=== PATIENT | female | born 1940 | race Caucasian/White ===

== ENCOUNTER 2019-06-06 16:15 | Emergency (ER) | payer MEDICARE, MEDICAID, SELFPAY ==
[2019-06-06] VITALS (7 sets, daily range): BP systolic 143–214; BP diastolic 54–65; PULSE 58–82; RESP 16–21; TEMP 36.7–36.8; O2SAT 96–100
--- NOTE | ~2019-06-06 | XR_ITS ---
XR chest 2V 06/06/2019 18:04 Indication: Shortness of breath and fatigue Procedure: PA and lateral views of the chest Comparison: Comparison to multiple prior studies sequentially, with oldest reviewed study dated 11/16. Findings: Cardiomegaly. No focal air space disease, pulmonary edema, pleural effusion or suspected pn eumothorax. There is a chronic wedge compression fracture of the midthoracic vertebra. No acute osseo us abnormality. There is atherosclerosis. Impression: 1: No acute cardiopulmonary disease. Reviewed, dictated and finalized at location A. R WORKER WELL SERVICE Impression: 1: No acute cardiopulmonary disease.
--- NOTE | 2019-06-06 16:22 | ECG_ITS ---
Measurements Intervals [place] Rate: 55 P: 50 MI: 159 QRS: -67 QRSD: 154 T: -46 QT: 478 QTc: 458 Interpretive Statements SINUS BRADYCARDIA LEFT AXIS DEVIATION RIGHT BUNDLE BRANCH BLOCK VOLTAGE CRITERIA FOR LVH T WAVE ABNORMALITY IN ANTEROLAT/INF LEADS- CONSIDER ISCHEMIA BASELINE ARTIFACT- I, II ABNORMAL ECG Electronically Signed On 06-06-2019 17:37:06 TESTER ARMATURE OR FIELDS by Mateo Hunt D.O.
[2019-06-06 16:37] LABS: Basophils Percent Auto 0.6 % (0.2-1.2); Eosinophils Absolute Auto 0.1 K/mm3 (0-0.3); Eosinophils Percent Auto 1.4 % (0-4.4); Hematocrit 38.3 % (37.0-47.0); Hemoglobin 13.2 g/dL (12.0-15.0); Immature Granulocyte Absolute 0.02 K/mm3 (0.00-0.031); Immature Granulocyte Percent A 0.3 % (0-0.5); Lymphocytes Absolute Auto 2.62 K/mm3 (0.9-3.2); Lymphocytes Percent Auto 41.6 % (18.3-44.2); Mean Corpuscular HGB Conc 34.5 g/dl (32-36); Mean Corpuscular Hemoglobin 29.4 pg (26-34); Mean Corpuscular Volume 85.3 fl (80-100); Monocytes Absolute Auto 0.7 K/mm3 (0.1-0.6); Monocytes Percent Auto 10.8 % (2.6-8.5); Neutrophils Absolute Auto 2.9 K/mm3 (1.3-6.7); Neutrophils Percent Auto 45.3 % (45.5-73.1); Platelet Count Result 238 k/mm3 (150-375); Red Blood Count 4.49 M/mm3 (4.2-5.4); Red Cell Distribution Width 13.6 % (11.5-14.5); White Blood Count 6.3 K/mm3 (4.5-10.0)
[2019-06-06 16:51] LABS: Blood Urea Nitrogen 14 mg/dL (7-17); Calcium 9.7 mg/dL (8.4-10.2); Carbon Dioxide 23 mmol/L (22-30); Chloride 93 mmol/L (98-107); Estimated CRCL calculation 36 ml/min; Estimated Glomerular Filt Rate > 60; Glucose 103 mg/dL (65-105); Potassium 3.5 mmol/L (3.4-5.0); Sodium 132 mmol/L (137-145)
--- NOTE | 2019-06-06 20:22 | ED.WEAKNESS ---
HPI - Weakness General Chief complaint: Weakness Stated complaint: SOB, FATIGUED Time Seen by Provider: 06/06/19 20:23 Source: patient and RN notes reviewed Mode of arrival: ambulatory Limitations: no limitations History of Present Illness HPI Narrative: Pt is a 79 y/o female with a Hx of COPD, who presents to the ED with c/o generalized weakness and fatigue starting several days ago. She notes that she has a Hx of anemia, and states that she typically takes iron pills. Pt notes that she hasn't taken any iron supplements for the past week. She notes that she has also had more constant SOB over the past several days. Pt states that she has been eating and drinking normally. She also reports chills and a chronic cough, but denies any CP, fever, sinus congestion, LE pain, or LE edema. MD Complaint: generalized weakness and lack of energy Onset (ago): day(s) (several) Duration: constant Location: generalized Associated symptoms: fever/chills (chills), shortness of breath and other (cough (chronic)) Related Data Home Medications Medication Instructions Recorded Confirmed aspirin 81 mg tablet,delayed 81 mg PO DAILY 03/22/19 release atorvastatin 40 mg tablet 40 mg PO DAILY 03/22/19 cholecalciferol (vitamin D3) 25 1,000 unit PO DAILY 03/22/19 mcg (1,000 unit) capsule ferrous sulfate 325 mg (65 mg 325 mg PO DAILY tablet 03/22/19 03/22/19 iron) tablet fluoxetine 20 mg capsule 20 mg PO BID 03/22/19 losartan 100 1 tablet PO DAILY 03/22/19 mg-hydrochlorothiazide 25 mg tablet metoprolol tartrate 25 mg tablet 25 mg PO BID tablet 03/22/19 pantoprazole 40 mg tablet,delayed 40 mg PO BID tablet 03/22/19 release Allergies Allergy/AdvReac Type Severity Reaction Status Date / Time budesonide [From Symbicort] Allergy Intermediate mouth Verified 03/22/19 14:03 ulcers formoterol [From Symbicort] Allergy Intermediate mouth Verified 03/22/19 14:03 ulcers Sulfa (Sulfonamide Allergy Intermediate Hives Verified 03/22/19 14:03 Antibiotics) Review of Systems Review of Systems: All systems reviewed & are unremarkable except as noted in HPI and below Constitutional: Constitutional: Reports chills, Reports fatigue, Denies fever(s) and Reports weakness (generalized weakness) ENT: Denies nasal congestion Cardiovascular: Cardiovascular: Denies chest pain and Denies leg edema Respiratory: Respiratory: Reports cough (chronic) and Reports dyspnea Musculoskeletal: Musculoskeletal: Denies other (LE pain) [facility] Past Medical History Medical History (Updated 06/07/19 @ 00:00 by Background Daemon) Anemia Anxiety Arthritis Asthma Back pain Bronchitis CAD (coronary artery disease) Cataracts, bilateral COPD (chronic obstructive pulmonary disease) Depression Eczema GERD (gastroesophageal reflux disease) Heart attack Hemorrhoids History of angina Pneumonia UTI (urinary tract infection) Surgical History Surgical History H/O hemorrhoidectomy Hx of cardiac catheterization with stent placement Hx of cataract surgery Hx of left knee surgery Hx of tubal ligation Tubal ligation status Family History Family History Sibling Family history of diabetes mellitus in first degree relative Family history of coronary artery disease Father Family history of lung cancer Mother Family history of coronary artery disease Social History Social History Smoking status: Never smoker Alcohol intake: never Exam Const: General: healthy appearing and no acute distress Nutritional Appearance: well nourished Resp: Effort & Inspection: normal respiratory effort Auscultation: clear to auscultation bilaterally Cardio: Rate: regular rate Rhythm: regular rhythm Heart sounds: no murmurs GI: GI Palp: Yes Soft to palpation and No Tenderness to palpa
[2019-06-06] MEDS: SODIUM CHLORIDE 0.9% IV 1,000 ML 999 ML IV CONT (20:47)
[2019-06-06] MEDS: IPRATROPIUM BR 0.02% INH SOLN 0.5 MG/2.5 ML VIAL INHALATION (20:55)
[2019-06-06] MEDS: ALBUTEROL SULFATE NEB 2.5 MG/0.5 ML INH 5 MG INHALATION (20:55)
[2019-06-06 21:57] LABS: Add Urine Microscopic? YES; Appearance Urine Clear (Clear); Bilirubin Urine Negative (Negative); Blood Urine Negative (Negative); Color Urine Straw (Yellow); Glucose Urine UA Negative (Negative); Ketones Urine Negative (Negative); Leukocyte Esterase Ur Trace LEU/UL (Negative); Nitrate Urine Negative (Negative); Protein Urine Negative (Negative); RBC Urine 0-2 /hpf (0-2); Specific Grav Ur 1.009 (1.001-1.035); Squamous Epithelial Cell Urine Rare /hpf (Few); Urobilinogen Urine Negative mg/dL (<2.0); WBC Urine 0-3 /hpf
--- NOTE | 2019-06-06 22:04 | PC.NURSE ---
Pt. states when she got up to go to the bathroom a few minutes ago she felt a sharp pinching pain in her chest. She states she feels better when shes lying down .
== END 2019-06-06 23:20 | disposition home or self-care (01) ==
PROVIDERS: General Practice; Emergency Provider Emergency Medicine; PCP Family Medicine
DX: E86.0 Dehydration (principal); D64.9 Anemia, unspecified; M19.90 Unspecified osteoarthritis, unspecified site; I25.10 Atherosclerotic heart disease of native coronary artery without angina pectoris; K21.9 Gastro-esophageal reflux disease without esophagitis; I25.2 Old myocardial infarction; Z87.440 Personal history of urinary (tract) infections; Z95.5 Presence of coronary angioplasty implant and graft; Z98.42 Cataract extraction status, left eye; Z98.41 Cataract extraction status, right eye; Z79.82 Long term (current) use of aspirin; F41.9 Anxiety disorder, unspecified; F32.9 Major depressive disorder, single episode, unspecified; R00.1 Bradycardia, unspecified; I45.10 Unspecified right bundle-branch block; R94.31 Abnormal electrocardiogram [ECG] [EKG]
CPT/HCPCS: 36415; 71046; 80048; 81001; 85025; 93005; 94640; 96360; 99283; J7030

== ENCOUNTER 2019-06-07 10:42 | Outpatient (RCR) | payer MEDICARE, OTHER, SELFPAY ==
[2019-06-08 06:55] LABS: Alanine Aminotransferase 21 U/L (4-35); Albumin Level 3.7 g/dL (3.5-5.1); Alkaline Phosphatase 67 U/L (38-126); Aspartate Amino Transferase 26 U/L (14-36); Bilirubin,Total 0.4 mg/dL (0.2-1.3); Blood Urea Nitrogen 8 mg/dL (7-17); Calcium 9.5 mg/dL (8.4-10.2); Carbon Dioxide 25 mmol/L (22-30); Chloride 93 mmol/L (98-107); Estimated Glomerular Filt Rate > 60; Glucose 87 mg/dL (65-105); Potassium 3.5 mmol/L (3.4-5.0); Sodium 132 mmol/L (137-145)
== END 2019-06-29 23:59 | disposition home or self-care (01) ==
LOC: CAMBRIDGE 10:42
PROVIDERS: PCP Family Medicine; Visit Provider Physician Assistant
DX: E87.1 Hypo-osmolality and hyponatremia (principal)
CPT/HCPCS: 36415; 80053

== ENCOUNTER 2019-06-13 13:36 | Inpatient (IN) | payer MEDICARE, SELFPAY ==
[2019-06-13] VITALS (17 sets, daily range): BP systolic 123–162; BP diastolic 52–78; PULSE 68–94; RESP 14–28; TEMP 37–37.8; O2SAT 92–99
--- NOTE | ~2019-06-13 | XR_ITS ---
EXAMINATION: XR chest 2V DATE: 06/13/2019 14:03 INDICATION: Cough and shortness of breath TECHNIQUE: AP and lateral views of the chest are obtained. COMPARISON: 06/06/2019 FINDINGS: There are bibasilar airspace opacities. There is no pleural effusion or pneumothorax. The c ardiomediastinal silhouette is stable. The bones are osteopenic. There are chronic mid thoracic compr ession fractures. IMPRESSION: 1. Bibasilar airspace opacities, likely atelectasis. Reviewed, dictated and finalized at location A. E SYSTEMS OPERATIONS MANAGER
--- NOTE | ~2019-06-13 | XR_ITS ---
EXAMINATION: XR abdomen/kub 1V DATE: 06/15/2019 23:21 INDICATION: Generalized abdominal pain. TECHNIQUE: A supine view of the abdomen was obtained. COMPARISON: None. FINDINGS: Gas in the stomach and scattered throughout normal caliber colon. Small amount of stool at rectum. No dilated loops of gas-filled small bowel to suggest obstruction. Small bilateral pleural effusions wi th basilar atelectasis. Mild lumbar levocurvature with moderate spondylosis. IMPRESSION: 1. No dilated small bowel to suggest obstruction. 2. Small bilateral pleural effusions with basilar atelectasis. Reviewed, dictated and finalized at location A. SACTION MANAGER
--- NOTE | 2019-06-13 13:39 | ECG_ITS ---
Measurements Intervals [place] Rate: 77 P: 28 MT: 157 QRS: -76 QRSD: 161 T: -7 QT: 460 QTc: 524 Interpretive Statements SINUS RHYTHM RIGHT BUNDLE BRANCH BLOCK LEFT ANTERIOR FASCICULAR BLOCK VOLTAGE CRITERIA FOR LVH CANNOT RULE OUT SEPTAL INFARCT, AGE INDETERMINATE BASELINE ARTIFACT- I, II, III, AVL, AVF ABNORMAL ECG Electronically Signed On 06-13-2019 14:03:54 CLOTH SHRINKING MACHINE OPERATOR HELPER by Mateo Hunt D.O.
--- NOTE | 2019-06-13 14:20 | ED.SOB ---
HPI - SOB/Dyspnea General Chief Complaint: Shortness of Breath/Dyspnea Stated Complaint: cough, SOB Time Seen by Provider: 06/13/19 13:55 Source: patient and RN notes reviewed Mode of arrival: ambulatory Limitations: no limitations History of Present Illness HPI Narrative: Pt is an 79 y/o female presenting to the ED c/o cough. Pt reports she has been experiencing a cough for about 2 weeks that worsened 3 days ago. Pt also reports pain with cough, subjective fever, SOB, rhinorrhea, ST, chest congestion, and nausea, but denies vomiting. Pt states she presented to this facility last Thursday where she reports she was not given any medications and was told she was dehydrated. Pt states she has not recently been on an Abx. Pt reports she sees Dr. Gresham as her Appraisal Specialist due to a Hx of SD and stent placement. Pt states she also has a Hx of COPD and received a Nebulizer treatment last Thursday. Pt notes she resides at [facility]. Pertinent past history: COPD Onset (ago): week(s) (2) Associated symptoms: fever (Subjective), nausea/vomiting (Nausea, no vomiting) and other (SOB; pain with cough; rhinorrhea; ST; chest congestion) Related Data Home Medications Medication Instructions Recorded Confirmed aspirin 81 mg tablet,delayed 81 mg PO DAILY 03/22/19 06/13/19 release atorvastatin 40 mg tablet 40 mg PO DAILY 03/22/19 06/13/19 cholecalciferol (vitamin D3) 25 1,000 unit PO DAILY 03/22/19 06/13/19 mcg (1,000 unit) capsule ferrous sulfate 325 mg (65 mg 325 mg PO DAILY tablet 03/22/19 06/13/19 iron) tablet fluoxetine 20 mg capsule 20 mg PO BID 03/22/19 06/13/19 metoprolol tartrate 25 mg tablet 25 mg PO BID tablet 03/22/19 06/13/19 pantoprazole 40 mg tablet,delayed 40 mg PO BID tablet 03/22/19 06/13/19 release meclizine 25 mg PO TID 06/13/19 06/13/19 multivitamin [Daily-Linnea] 1 tablet PO DAILY 06/13/19 06/13/19 nitroglycerin 0.4 mg SUBLINGUAL ONCE 06/13/19 06/13/19 ondansetron 4 mg PO Q6H 06/13/19 06/13/19 promethazine 25 mg PO Q6H PRN 06/13/19 06/13/19 triamcinolone acetonide 1 applic TOPICAL BID 06/13/19 06/13/19 Allergies Allergy/AdvReac Type Severity Reaction Status Date / Time budesonide [From Symbicort] Allergy Intermediate mouth Verified 03/22/19 14:03 ulcers formoterol [From Symbicort] Allergy Intermediate mouth Verified 03/22/19 14:03 ulcers Sulfa (Sulfonamide Allergy Intermediate Hives Verified 03/22/19 14:03 Antibiotics) Review of Systems Review of Systems: Narrative: pain with cough, subjective fever, SOB, rhinorrhea, ST, chest congestion, and nausea, but denies vomiting All systems reviewed & are unremarkable except as noted in HPI and below Constitutional: Constitutional: Reports fever(s) (Subjective) ENT: Reports sore throat and Reports other (Rhinorrhea) Respiratory: Respiratory: Reports chest congestion, Reports cough, Reports pain with cough and Reports dyspnea Gastrointestinal: Gastrointestinal: Reports nausea and Denies vomiting PMFSH Past Medical History Medical History Anemia Anxiety Arthritis Asthma Back pain Bronchitis CAD (coronary artery disease) Cataracts, bilateral COPD (chronic obstructive pulmonary disease) Depression Eczema GERD (gastroesophageal reflux disease) Heart attack Hemorrhoids History of angina Pneumonia UTI (urinary tract infection) Surgical History Surgical History H/O hemorrhoidectomy Hx of cardiac catheterization with stent placement Hx of cataract surgery Hx of left knee surgery Hx of tubal ligation Tubal ligation status Family History Family History Sibling Family history of diabetes mellitus in first degree relative Family history of coronary artery disease Father Family history of lung cancer Mother Family history of coronary artery disease Social History Social History (Reviewed 05/22
[2019-06-13 14:25] LABS: Basophils Percent Auto 0.4 % (0.2-1.2); Eosinophils Absolute Auto 0.1 K/mm3 (0-0.3); Eosinophils Percent Auto 0.9 % (0-4.4); Hematocrit 35.8 % (37.0-47.0); Hemoglobin 12.3 g/dL (12.0-15.0); Immature Granulocyte Absolute 0.02 K/mm3 (0.00-0.031); Immature Granulocyte Percent A 0.3 % (0-0.5); Lymphocytes Percent Auto 17.3 % (18.3-44.2); Mean Corpuscular HGB Conc 34.4 g/dl (32-36); Mean Corpuscular Hemoglobin 29.1 pg (26-34); Mean Corpuscular Volume 84.6 fl (80-100); Mean Platelet Volume 9.8 fl (7.4-10.4); Monocytes Absolute Auto 0.7 K/mm3 (0.1-0.6); Monocytes Percent Auto 9.2 % (2.6-8.5); Neutrophils Absolute Auto 5.4 K/mm3 (1.3-6.7); Neutrophils Percent Auto 71.9 % (45.5-73.1); Platelet Count Result 209 k/mm3 (150-375); Red Blood Count 4.23 M/mm3 (4.2-5.4); Red Cell Distribution Width 13.2 % (11.5-14.5); White Blood Count 7.5 K/mm3 (4.5-10.0)
[2019-06-13 14:26] LABS: Alveolar/Arterial O2 Gradient 48.6 mmHg; Base Excess ABG 1.4 mEq/l (+/-2.0); Carboxyhemoglobin 0.2 % THb (0-2.0); Fractional Inspired Oxygen 21 %; HCO3 ABG 24.8 mEq/l (22.0-26.0); Methemoglobin ABG 0.2 %THb (0-1.5); Oxygen Content ABG 16.4 %vol (16.0-22.0); Oxygen Saturation ABG 92.2 % (95.0-100.0); Oxyhemoglobin 91.1 % THb (90.0-100.0); PCO2 ABG 35.2 mmHg (35.0-45.0); PO2 FiO2 Ratio Arterial Blood 2.81 %; Reduced Hemoglobin 8.5 %THb (0-5.0); Total Hemoglobin 12.8 g/dL (12.0-18.0); pH ABG 7.466 (7.350-7.450)
[2019-06-13 14:27] LABS: Device ROOM AIR; Modified Allen's Test Pass; Site Drawn RIGHT RADIAL
[2019-06-13] MEDS: IPRATROPIUM BR 0.02% INH SOLN 0.5 MG/2.5 ML VIAL INHALATION ×2 (14:31→22:29)
[2019-06-13] MEDS: ALBUTEROL SULFATE NEB 2.5 MG/0.5 ML INH 5 MG INHALATION ×2 (14:31→22:29)
[2019-06-13 14:48] LABS: Alanine Aminotransferase 21 U/L (4-35); Albumin Level 4.3 g/dL (3.5-5.1); Alkaline Phosphatase 45 U/L (38-126); Aspartate Amino Transferase 9 U/L (14-36); Bilirubin,Total 0.5 mg/dL (0.2-1.3); Magnesium 0.6 mg/dL (1.6-2.3)
[2019-06-13 14:48] LABS: Blood Urea Nitrogen 9 mg/dL (7-17); Carbon Dioxide 24 mmol/L (22-30); Chloride 86 mmol/L (98-107); Estimated CRCL calculation 64 ml/min; Estimated Glomerular Filt Rate > 60; Glucose 145 mg/dL (65-105); Potassium 3.3 mmol/L (3.4-5.0); Sodium 125 mmol/L (137-145)
[2019-06-13 14:50] LABS: Lactic Acid Reflex 1.9 mmol/L (0.7-2.1)
[2019-06-13 15:00] LABS: Troponin I < 0.012 ng/mL (0.000-0.034)
[2019-06-13] MEDS: SODIUM CHLORIDE 0.9% IV 1,000 ML 999 ML IV CONT (15:01)
[2019-06-13] MEDS: MAGNESIUM SULF 1 GM/D5W 100 ML 1 GM/100 ML BAG IVPB (15:25)
[2019-06-13] MEDS: POTASSIUM CHLORIDE 20 MEQ TABLET PO (15:25)
--- NOTE | 2019-06-13 17:23 | ADMGEN ---
This patient, Sola Osborne, was admitted to 2 Medical Room 243-01. Patient/family oriented to hospital policies and general routines including ID bracelet, bed and alarms, visiting hours, pain management, procedures, bathroom and other care routines, personal items, smoking policy, room service/diet, and visiting hours. Valuables list has been completed. Information on how to activate the Rapid Response Team has been discussed. Patient/Family are encouraged to report perceived risks to care and to ask questions if they do not understand what they are told or what they should do.
[2019-06-13] MEDS: SODIUM CHLORIDE 0.9% IV 1,000 ML 125 ML IV CONT (18:29)
[2019-06-13] MEDS: DOXYCYCLINE HYCLATE 100 MG TABLET PO (20:48)
[2019-06-14] VITALS (17 sets, daily range): BP systolic 141–150; BP diastolic 45–61; PULSE 65–103; RESP 16–20; TEMP 36.1–36.7; O2SAT 92–93
[2019-06-14] MEDS: SODIUM CHLORIDE 0.9% IV 1,000 ML 125 ML IV CONT ×2 (03:02→12:23)
[2019-06-14] MEDS: IPRATROPIUM BR 0.02% INH SOLN 0.5 MG/2.5 ML VIAL INHALATION ×4 (04:19→19:10)
[2019-06-14] MEDS: ALBUTEROL SULFATE NEB 2.5 MG/0.5 ML INH 5 MG INHALATION ×4 (04:19→19:09)
--- NOTE | 2019-06-14 05:06 | PM.IMHP ---
H&P: HPI History of Present Illness Chief complaint: Cough Narrative: Date and time of patient contact: 06/14/2019 at 6:00 a.m. Sola Osborne is a 79 year old female with a past medical history of COPD, coronary artery disease, and diastolic dysfunction who presented to the ER from [facility] with a cough. She has been having shortness of breath for about a week followed by another week of cough that is nonproductive. She had came into the ER 06/06/2019 for shortness of breath was accompanied by chills generalized weakness and fatigue. She was diagnosed with dehydration and discharged home without medications. Her symptoms started for 5 days prior to her initial presentation. She does have a chronic cough but her cough is progressively worsened after her 1st ER visit.. Her cough is nonproductive. She has been having some fevers and chills. She reports decreased appetite but no nausea or vomiting. She has been having somewhat loose stools but she has continued taking her fiber supplement and stool softener until the at which time she held them. She denies any chest pain. She has longstanding history of orthopnea that may be a little bit worse than baseline. However her cough is what is making the orthopnea worse. She denies any lower extremity swelling. Her chest is uncomfortable with her cough. Review of Systems Review of Systems: Narrative: Except as documented in the HPI, all other systems were reviewed and are negative. [facility] Past Medical History Medical History (Updated 06/14/19 @ 05:14 by Kristin Baird DO) Anemia Distant history of anemia on iron supplements Anxiety Arthritis Asthma Back pain CAD (coronary artery disease) Angioplasty in the early , drug eluting stent to the proximal 1st obtuse marginal branch of the circumflex September 2014 COPD (chronic obstructive pulmonary disease) PFTs August of 2018 demonstrated moderate obstructive airway disease with severe small airway disease with no bronchodilator response and significant air trapping Depression Diastolic dysfunction Noted on cardiac catheterization from September 2014, with echocardiogram from September 2014 demonstrating moderate LVH with sigmoid hypertrophy of the septum, increased left heart filling pressures, EF of 70% with anterior lateral segment being hypokinetic Eczema GERD (gastroesophageal reflux disease) With symptoms of dysphagia resulting in an EGD by Dr. Byrd September 2018 with gastric polypectomy Heart attack Non STEMI September 2014 with stent placed in the obvious marginal branch of the circumflex Hemorrhoids Pneumonia UTI (urinary tract infection) Surgical History Surgical History (Updated 06/14/19 @ 05:14 by Kristin Baird DO) H/O hemorrhoidectomy History of bilateral cataract extraction Hx of cardiac catheterization with stent placement Hx of cataract surgery Hx of left knee surgery Hx of tubal ligation Tubal ligation status Family History Family History (Updated 06/14/19 @ 05:18 by Kristin Baird DO) Sibling Diabetes mellitus Coronary artery disease One brother of complications of diabetes and had a history of heart disease. Her younger brother also had a history of a CABG. Father Lung cancer Mother Coronary artery disease She had an IL in her 70s. Son Quadriplegia, acute traumatic 1 son who is quadriplegic due to trauma. She also has 3 other children. Social History Social History (Updated 06/14/19 @ 07:18 by Kristin Baird DO) Social History: Primary care physician: Ha CASTANEDA Code status: DNI per patient request Smoking status: Never smoker Second hand tobacco smoke exposure: Yes Alcohol intake: never Substance use: never Substance use type: does not use Additional living arrangements comments: Patient resides at [facility]. She has 4 children. One of her children's quadriplegic due to a car accident.
[2019-06-14 06:23] LABS: Blood Urea Nitrogen 4 mg/dL (7-17); Calcium 8.1 mg/dL (8.4-10.2); Carbon Dioxide 25 mmol/L (22-30); Chloride 90 mmol/L (98-107); Estimated CRCL calculation 64 ml/min; Estimated Glomerular Filt Rate > 60; Glucose 122 mg/dL (65-105); Potassium 3.1 mmol/L (3.4-5.0); Sodium 126 mmol/L (137-145)
[2019-06-14 06:24] LABS: Magnesium 1.7 mg/dL (1.6-2.3)
[2019-06-14] MEDS: MAGNESIUM SULF 2 GM/WATER 50ML 2 GM/50 ML BAG IVPB (07:57)
[2019-06-14] MEDS: POTASSIUM CHLORIDE 20 MEQ PACKET (FOR LIQUID) 40 MEQ PO (07:59)
[2019-06-14] MEDS: predniSONE 20 MG TABLET 60 MG PO (08:02)
[2019-06-14] MEDS: DOXYCYCLINE HYCLATE 100 MG TABLET PO ×2 (08:02→20:39)
[2019-06-14] MEDS: METOPROLOL TARTRATE 25 MG TABLET PO (08:02)
[2019-06-14] MEDS: hydroCHLOROthiazide 25 MG TABLET PO (08:02)
[2019-06-14] MEDS: PANTOPRAZOLE 40 MG TABLET PO ×2 (08:03→16:31)
[2019-06-14] MEDS: MULTIVITAMINS THERAPEUTIC TAB (*BKC) 1 TABLET PO (08:03)
[2019-06-14] MEDS: CHOLECALCIFEROL 1,000 UNIT TABLET 1000 UNITS PO (08:03)
[2019-06-14] MEDS: LOSARTAN POTASSIUM 100 MG TABLET PO (08:03)
[2019-06-14] MEDS: FLUOXETINE HCL 20 MG CAP PO ×2 (08:03→16:31)
[2019-06-14] MEDS: ASPIRIN 81 MG ENTERIC TABLET PO (08:04)
[2019-06-14] MEDS: ACETAMINOPHEN 325 MG TABLET 650 MG PO ×2 (09:14→20:39)
--- NOTE | 2019-06-14 15:12 | P.PNIM_ITS ---
Progress Note: A&P Assessment and Plan (1) Acute exacerbation of chronic obstructive airways disease: Code(s): J44.1 - Chronic obstructive pulmonary disease with (acute) exacerbation Status: Acute Assessment and Plan: * Continue scheduled duoneb treatments * Will discontinue PO prednisone and begin IV solumedrol due to persistent cough * Continue PO doxycycline * Chest physiotherapy, IS * Continue guaifenesin * Begin benzonatate * Will hold fluticasone/salmeterol due to acute COPD exacerbation (2) Hypomagnesemia: Code(s): E83.42 - Hypomagnesemia Status: Acute Assessment and Plan: * Magnesium at presentation to the ED was 0.6. The pt received a 3 grams of magnesium sulfate in the ER. Magnesium level today was 1.7. She received an additional 2 grams today. * Will re-check Mg tomorrow * Suspect GI loss from diarrhea, laxative use, and HCTZ are contributing to hypomagnesemia. * Hold HCTZ (3) Acute hyponatremia: Code(s): E87.1 - Hypo-osmolality and hyponatremia Status: Acute Assessment and Plan: * Pt appears to have hyponatremia at baseline (sodium 06/08 132) but sodium today was 126 * Suspect that this may be induced by HCTZ. Will hold HCTZ * Urine sodium and urine osmolality ordered * Obtain echo * Will continue to monitor (4) Hypertension: Code(s): I10 - Essential (primary) hypertension Status: Acute Assessment and Plan: * BP reviewed. Pt is on losartan-HCTZ and carvedilol. She reports that metoprolol 25mg BID was recently switched to carvedilol 3.125mg BID by her medical collections. * Will hold HCTZ due to electrolyte abnormalities. * Continue to monitor (5) Diastolic dysfunction: Code(s): I51.89 - Other ill-defined heart diseases Status: Acute Assessment and Plan: * Pt has a hx of diastolic dysfunction * Will obtain echo * Will monitor fluid status (6) CAD (coronary artery disease): Code(s): I25.10 - Atherosclerotic heart disease of [place] coronary artery without angina pectoris Status: Acute Assessment and Plan: * Pt has a hx of CAD s/p angioplasty in the early and drug eluting stent to the proximal 1st obtuse marginal branch of the circumflex September 2014 * She c/o chest tightness with coughing at admission so ECG and troponin was ordered and negative for acute ischemia. * Continue to monitor (7) Anxiety: Code(s): F41.9 - Anxiety disorder, unspecified Status: Acute Assessment and Plan: * The pt has a hx of anxiety and depression. Will continue fluoxetine. (8) GERD (gastroesophageal reflux disease): Code(s): K21.9 - Gastro-esophageal reflux disease without esophagitis Status: Acute Assessment and Plan: * The pt has a hx of GERD. She underwent EGD by Dr. Byrd 10/07/18 and a gastric polyp was removed. * Continue protonix. Will give 40mg PO QD since this can cause hypomagnesemia and hyponatremia. (9) Hypokalemia: Code(s): E87.6 - Hypokalemia Status: Acute Assessment and Plan: * Potassium was 3.3 at admission. Potassium dropped to 3.1 today. Pt received 20mEq in the ER and 40mEq today. * Will continue to monitor Additional Plan DVT Prophylaxis: SCDs Time Spent With Patient Time with patient: 15 - 25 minutes Subjective
--- NOTE | 2019-06-14 15:12 | PM.IMPN ---
Progress Note: A&P Assessment and Plan (1) Acute exacerbation of chronic obstructive airways disease: Code(s): J44.1 - Chronic obstructive pulmonary disease with (acute) exacerbation Status: Acute Assessment and Plan: Continue scheduled duoneb treatments Will discontinue PO prednisone and begin IV solumedrol due to persistent cough Continue PO doxycycline Chest physiotherapy, IS Continue guaifenesin Begin benzonatate Will hold fluticasone/salmeterol due to acute COPD exacerbation (2) Hypomagnesemia: Code(s): E83.42 - Hypomagnesemia Status: Acute Assessment and Plan: Magnesium at presentation to the ED was 0.6. The pt received a 3 grams of magnesium sulfate in the ER. Magnesium level today was 1.7. She received an additional 2 grams today. Will re-check Mg tomorrow Suspect GI loss from diarrhea, laxative use, and HCTZ are contributing to hypomagnesemia. Hold HCTZ (3) Acute hyponatremia: Code(s): E87.1 - Hypo-osmolality and hyponatremia Status: Acute Assessment and Plan: Pt appears to have hyponatremia at baseline (sodium 06/08 132) but sodium today was 126 Suspect that this may be induced by HCTZ. Will hold HCTZ Urine sodium and urine osmolality ordered Obtain echo Will continue to monitor (4) Hypertension: Code(s): I10 - Essential (primary) hypertension Status: Acute Assessment and Plan: BP reviewed. Pt is on losartan-HCTZ and carvedilol. She reports that metoprolol 25mg BID was recently switched to carvedilol 3.125mg BID by her gunner's mate m. Will hold HCTZ due to electrolyte abnormalities. Continue to monitor (5) Diastolic dysfunction: Code(s): I51.89 - Other ill-defined heart diseases Status: Acute Assessment and Plan: Pt has a hx of diastolic dysfunction Will obtain echo Will monitor fluid status (6) CAD (coronary artery disease): Code(s): I25.10 - Atherosclerotic heart disease of [place] coronary artery without angina pectoris Status: Acute Assessment and Plan: Pt has a hx of CAD s/p angioplasty in the early and drug eluting stent to the proximal 1st obtuse marginal branch of the circumflex September 2014 She c/o chest tightness with coughing at admission so ECG and troponin was ordered and negative for acute ischemia. Continue to monitor (7) Anxiety: Code(s): F41.9 - Anxiety disorder, unspecified Status: Acute Assessment and Plan: The pt has a hx of anxiety and depression. Will continue fluoxetine. (8) GERD (gastroesophageal reflux disease): Code(s): K21.9 - Gastro-esophageal reflux disease without esophagitis Status: Acute Assessment and Plan: The pt has a hx of GERD. She underwent EGD by Dr. Byrd 10/07/18 and a gastric polyp was removed. Continue protonix. Will give 40mg PO QD since this can cause hypomagnesemia and hyponatremia. (9) Hypokalemia: Code(s): E87.6 - Hypokalemia Status: Acute Assessment and Plan: Potassium was 3.3 at admission. Potassium dropped to 3.1 today. Pt received 20mEq in the ER and 40mEq today. Will continue to monitor Additional Plan DVT Prophylaxis: SCDs Time Spent With Patient Time with patient: 15 - 25 minutes Subjective Date/time seen: 06/14/19 15:12 Interval history: The pt is seen and examined while sitting up in bed. She is tolerating PO intake well. She reports that her cough and SOB are improving. She continues to c/o intermittent coughing fits. She endorses difficulty coughing up sputum. She is feeling better today. She is on room air. She denies nausea, vomiting, and abdominal pain. Review of Systems Review of Systems: All systems reviewed & are unremarkable except as noted in HPI and below Exam Narrative: Exam Narrative: General: Elderly female, frail, sitting up in bed. No acute distr
[2019-06-14 18:59] LABS: Sodium Urine Random 73 meq/L
[2019-06-14] MEDS: BENZONATATE 100 MG CAPSULE PO (19:00)
[2019-06-14] MEDS: ATORVASTATIN 40 MG TABLET PO (20:39)
[2019-06-14] MEDS: carvediloL 3.125 MG TABLET PO (20:39)
[2019-06-14] MEDS: ZOLPIDEM TARTRATE 5 MG TABLET PO (20:39)
[2019-06-15] VITALS (17 sets, daily range): BP systolic 142–152; BP diastolic 62–77; PULSE 64–88; RESP 16–18; TEMP 36.1–36.6; O2SAT 90–98
--- NOTE | 2019-06-15 | ECHO_ITS ---
Patient Info Name: Sola Osborne Age: 79 years : 1940 Gender: Female Ht: 61 in Wt: 144 lbs BSA: 1.70 m2 HR: 78 bpm BP: 149 / 62 mmHg Heart Rhythm: Sinus Rhythm Technical Quality: Good Exam Date: 06/15/2019 10:59 AM Exam Location: [facility] Pulmonary Patient Status: Inpatient Admit Date: 06/13/2019 Staff Ordering Physician: Wilma Moore PA-C Sprinkler Truck Driver: Tricia Muro RDCS Attending Provider: Wilma Moore PA-C Referring Physician: Oscar LINK; Exam Type: CA echo doppler color flow Study Info Indications - copd diastolic dysfunction Complete two-dimensional, color flow and Doppler transthoracic echocardiogram is performed. Summary 1. Left ventricular chamber dimension is normal. 2. Left ventricular systolic function is normal, estimated at 65-70%. 3. There is mildly increased left ventricular wall thickness. 4. Left ventricular septal wall motion is normal. 5. The left ventricular diastolic function is grade I diastolic dysfunction. 6. Left atrial chamber dimension is moderately enlarged. 7. There is mild to moderate mitral valve regurgitation. 8. There is mild tricuspid valve regurgitation. 9. Mild pulmonary hypertension, estimated pulmonary arterial systolic pressure is 35 mmHg. 10. There is mild pulmonic regurgitation. Left Ventricle Left ventricular chamber dimension is normal. Left ventricular systolic function is normal, estimated at 65-70%. There is mildly increased left ventricular wall thickness. Left ventricular septal wall motion is normal. The left ventricular diastolic function is grade I diastolic dysfunction. Right Ventricle Right ventricular chamber dimension is normal. Right ventricular systolic function is normal. Left Atria Left atrial chamber dimension is moderately enlarged. Right Atria Right atrial chamber dimension is normal. Atrial Septum Intact interatrial septum visualized by color flow imaging. Aortic Valve The aortic valve is trileaflet. There is mild aortic valve sclerosis. There is no aortic valve stenosis. There is trace aortic valve regurgitation. Pulmonic Valve The pulmonic valve is normal. There is no pulmonic valve stenosis. There is mild pulmonic regurgitation. Mitral Valve The mitral valve has calcified annulus. There is no mitral valve stenosis. There is mild to moderate mitral valve regurgitation. Tricuspid Valve The tricuspid valve leaflets are normal. There is no significant tricuspid valve stenosis. There is mild tricuspid valve regurgitation. Mild pulmonary hypertension, estimated pulmonary arterial systolic pressure is 35 mmHg. Pericardium/Pleural The pericardium appears normal. There is trivial pericardial effusion. Inferior Vena Cava Dilated inferior vena cava with >50% collapse upon inspiration consistent with elevated right atrial pressure, 10 mmHg. Aorta The aortic root size at the sinus of Valsalva is normal. Left Ventricular Outflow Tract Name Value Normal LVOT 2D LVOT Diameter 2.0 cm LVOT Doppler LVOT Peak Gradient 5 mmHg LVOT Me
[2019-06-15] MEDS: ALBUTEROL SULFATE NEB 2.5 MG/0.5 ML INH 5 MG INHALATION ×4 (01:14→20:39)
[2019-06-15] MEDS: IPRATROPIUM BR 0.02% INH SOLN 0.5 MG/2.5 ML VIAL INHALATION ×4 (01:15→20:37)
[2019-06-15 05:27] LABS: Basophils Percent Auto 0.1 % (0.2-1.2); Hematocrit 31.1 % (37.0-47.0); Immature Granulocyte Absolute 0.05 K/mm3 (0.00-0.031); Immature Granulocyte Percent A 0.5 % (0-0.5); Lymphocytes Percent Auto 20.7 % (18.3-44.2); Mean Corpuscular HGB Conc 35.4 g/dl (32-36); Mean Corpuscular Hemoglobin 28.9 pg (26-34); Mean Corpuscular Volume 81.8 fl (80-100); Mean Platelet Volume 9.8 fl (7.4-10.4); Monocytes Absolute Auto 0.9 K/mm3 (0.1-0.6); Monocytes Percent Auto 9.3 % (2.6-8.5); Neutrophils Absolute Auto 6.7 K/mm3 (1.3-6.7); Neutrophils Percent Auto 69.4 % (45.5-73.1); Platelet Count Result 206 k/mm3 (150-375); Red Cell Distribution Width 13.2 % (11.5-14.5); White Blood Count 9.6 K/mm3 (4.5-10.0)
[2019-06-15] MEDS: LOSARTAN POTASSIUM 100 MG TABLET PO (09:18)
[2019-06-15] MEDS: FLUOXETINE HCL 20 MG CAP PO (09:18)
[2019-06-15] MEDS: MULTIVITAMINS THERAPEUTIC TAB (*BKC) 1 TABLET PO (09:18)
[2019-06-15] MEDS: CHOLECALCIFEROL 1,000 UNIT TABLET 1000 UNITS PO (09:18)
[2019-06-15] MEDS: PANTOPRAZOLE 40 MG TABLET PO (09:18)
[2019-06-15] MEDS: BENZONATATE 100 MG CAPSULE PO ×2 (09:18→13:34)
[2019-06-15] MEDS: DOXYCYCLINE HYCLATE 100 MG TABLET PO (09:18)
[2019-06-15] MEDS: carvediloL 3.125 MG TABLET PO (09:18)
--- NOTE | 2019-06-15 09:25 | PC.NURSE ---
Patient states she takes her baby ASA at bedtime at home and requests to take it at bedtime here. Discussed with pharmacy, held this morning's dose and rescheduled for this evening.
[2019-06-15 09:41] LABS: Blood Urea Nitrogen 6 mg/dL (7-17); Calcium 8.7 mg/dL (8.4-10.2); Carbon Dioxide 25 mmol/L (22-30); Chloride 88 mmol/L (98-107); Estimated CRCL calculation 64 ml/min; Estimated Glomerular Filt Rate > 60; Glucose 100 mg/dL (65-105); Magnesium 1.9 mg/dL (1.6-2.3); Phosphorus 1.9 mg/dL (2.5-4.5); Potassium 3.5 mmol/L (3.4-5.0); Sodium 124 mmol/L (137-145)
--- NOTE | 2019-06-15 10:21 | P.PNIM_ITS ---
Progress Note: A&P Assessment and Plan (1) Acute exacerbation of chronic obstructive airways disease: Code(s): J44.1 - Chronic obstructive pulmonary disease with (acute) exacerbation Status: Acute Assessment and Plan: Clinically, pt is improving * Continue scheduled duoneb treatments * Pt did not receive IV solumedrol. She had prednisone PO 60mg yesterday AM. Will continue PO prednisone since pt is improving * Continue PO doxycycline * Chest physiotherapy, IS * Continue guaifenesin * Continue benzonatate, cough is improving * Will hold fluticasone/salmeterol due to acute COPD exacerbation (2) Hypomagnesemia: Code(s): E83.42 - Hypomagnesemia Status: Acute Assessment and Plan: * Magnesium at presentation to the ED was 0.6. The pt received a 3 grams of magnesium sulfate in the ER and an additional 2 grams yesterday. Magnesium level today was stable at 1.9. * Suspect GI loss from diarrhea, laxative use, and HCTZ are contributing to hypomagnesemia. * Hold HCTZ (3) Acute hyponatremia: Code(s): E87.1 - Hypo-osmolality and hyponatremia Status: Acute Assessment and Plan: * Pt appears to have hyponatremia at baseline (sodium 06/08 132) but sodium today was 124. Will resume IV fluids. * Spot urine sodium was 73. Potassium is normal. * Suspect that this may be induced by HCTZ. Will continue to hold HCTZ * Urine osmolality pending * Due to steroid therapy, ACTH and cortisol would be inaccurate but this may need to be considered outpatient if hyponatremia persists * Will consult nephrology, appreciate recommendations (4) Hypertension: Code(s): I10 - Essential (primary) hypertension Status: Acute Assessment and Plan: * BP reviewed. Pt is on losartan-HCTZ and carvedilol. She reports that metoprolol 25mg BID was recently switched to carvedilol 3.125mg BID by her residential program manager. * Will hold HCTZ due to electrolyte abnormalities. * Continue to monitor (5) Diastolic dysfunction: Code(s): I51.89 - Other ill-defined heart diseases Status: Acute Assessment and Plan: * Pt has a hx of diastolic dysfunction * Echo revealed EF 65-70%, left ventricular grade 1 diastolic dysfunction, moderate left atrial enlargement, mild to moderate mitral valve regurgitation, mild tricuspid valve regurgitation, and mild pulmonary HTN with estimated arterial systolic pressure of 35mmHg. * Will monitor fluid status (6) CAD (coronary artery disease): Code(s): I25.10 - Atherosclerotic heart disease of [place] coronary artery without angina pectoris Status: Acute Assessment and Plan: * Pt has a hx of CAD s/p angioplasty in the early and drug eluting stent to the proximal 1st obtuse marginal branch of the circumflex September 2014 * She c/o chest tightness with coughing at admission so ECG and troponin was ordered and negative for acute ischemia. * Continue to monitor (7) Anxiety: Code(s): F41.9 - Anxiety disorder, unspecified Status: Acute Assessment and Plan: * The pt has a hx of anxiety and depression. Will continue fluoxetine. (8) GERD (gastroesophageal reflux disease): Code(s): K21.9 - Gastro-esophageal reflux disease without esophagitis Status: Acute Assessment and Plan: * The pt has a hx of GERD. She underwent EGD by Dr. Byrd 10/07/18 and a gastric polyp was removed. * Continue proton
--- NOTE | 2019-06-15 10:21 | PM.IMPN ---
Progress Note: A&P Assessment and Plan (1) Acute exacerbation of chronic obstructive airways disease: Code(s): J44.1 - Chronic obstructive pulmonary disease with (acute) exacerbation Status: Acute Assessment and Plan: Clinically, pt is improving Continue scheduled duoneb treatments Pt did not receive IV solumedrol. She had prednisone PO 60mg yesterday AM. Will continue PO prednisone since pt is improving Continue PO doxycycline Chest physiotherapy, IS Continue guaifenesin Continue benzonatate, cough is improving Will hold fluticasone/salmeterol due to acute COPD exacerbation (2) Hypomagnesemia: Code(s): E83.42 - Hypomagnesemia Status: Acute Assessment and Plan: Magnesium at presentation to the ED was 0.6. The pt received a 3 grams of magnesium sulfate in the ER and an additional 2 grams yesterday. Magnesium level today was stable at 1.9. Suspect GI loss from diarrhea, laxative use, and HCTZ are contributing to hypomagnesemia. Hold HCTZ (3) Acute hyponatremia: Code(s): E87.1 - Hypo-osmolality and hyponatremia Status: Acute Assessment and Plan: Pt appears to have hyponatremia at baseline (sodium 06/08 132) but sodium today was 124. Will resume IV fluids. Spot urine sodium was 73. Potassium is normal. Suspect that this may be induced by HCTZ. Will continue to hold HCTZ Urine osmolality pending Due to steroid therapy, ACTH and cortisol would be inaccurate but this may need to be considered outpatient if hyponatremia persists Will consult nephrology, appreciate recommendations (4) Hypertension: Code(s): I10 - Essential (primary) hypertension Status: Acute Assessment and Plan: BP reviewed. Pt is on losartan-HCTZ and carvedilol. She reports that metoprolol 25mg BID was recently switched to carvedilol 3.125mg BID by her lock operator. Will hold HCTZ due to electrolyte abnormalities. Continue to monitor (5) Diastolic dysfunction: Code(s): I51.89 - Other ill-defined heart diseases Status: Acute Assessment and Plan: Pt has a hx of diastolic dysfunction Echo revealed EF 65-70%, left ventricular grade 1 diastolic dysfunction, moderate left atrial enlargement, mild to moderate mitral valve regurgitation, mild tricuspid valve regurgitation, and mild pulmonary HTN with estimated arterial systolic pressure of 35mmHg. Will monitor fluid status (6) CAD (coronary artery disease): Code(s): I25.10 - Atherosclerotic heart disease of [place] coronary artery without angina pectoris Status: Acute Assessment and Plan: Pt has a hx of CAD s/p angioplasty in the early and drug eluting stent to the proximal 1st obtuse marginal branch of the circumflex September 2014 She c/o chest tightness with coughing at admission so ECG and troponin was ordered and negative for acute ischemia. Continue to monitor (7) Anxiety: Code(s): F41.9 - Anxiety disorder, unspecified Status: Acute Assessment and Plan: The pt has a hx of anxiety and depression. Will continue fluoxetine. (8) GERD (gastroesophageal reflux disease): Code(s): K21.9 - Gastro-esophageal reflux disease without esophagitis Status: Acute Assessment and Plan: The pt has a hx of GERD. She underwent EGD by Dr. Byrd 10/07/18 and a gastric polyp was removed. Continue protonix. Will give 40mg PO QD since this can cause hypomagnesemia and hyponatremia. (9) Hypokalemia: Code(s): E87.6 - Hypokalemia Status: Acute Assessment and Plan: Potassium was 3.3 at admission. Potassium stable at 3.5 today. Pt received 20mEq in the ER and 40mEq PO yesterday. Will continue to monitor (10) Constipation: Code(s): K59.00 - Constipation, unspecified Status: Acute Assessment and Plan: The pt reports that she feels constipated. She
[2019-06-15] MEDS: POTASSIUM PHOS/SODIUM PHOS 250 MG TABLET PO (11:28)
[2019-06-15] MEDS: MECLIZINE HCL 25 MG TABLET PO (11:28)
[2019-06-15] MEDS: polyethylene glycoL 3350 17 GM POWD.PACK PO (11:29)
[2019-06-15] MEDS: predniSONE 20 MG TABLET 60 MG PO (11:29)
[2019-06-15] MEDS: SODIUM CHLORIDE 0.9% IV 1,000 ML 50 ML IV CONT (13:34)
--- NOTE | 2019-06-15 14:21 | PM.CNNEP ---
Assessment and Plan Assessment and plan (1) Hyponatremia: Code(s): E87.1 - Hypo-osmolality and hyponatremia Status: Acute (2) Acute exacerbation of chronic obstructive airways disease: Code(s): J44.1 - Chronic obstructive pulmonary disease with (acute) exacerbation Status: Acute (3) Hypertension: Code(s): I10 - Essential (primary) hypertension Status: Acute (4) Hypokalemia: Code(s): E87.6 - Hypokalemia Status: Acute (5) Hypomagnesemia: Code(s): E83.42 - Hypomagnesemia Status: Acute Assessment and Plan: . Additional Plan Sola has what appears to be acute on chronic hyponatremia. As already mentioned, she has been told that she has low sodium levels before but has never required any further intervention as apparently has remained relatively stable. From review of her records here [facility], her sodium level seems ranged anywhere from 129-135 millimoles per L. Her sodium level on admission was a bit lower than her baseline but it appears to have stabilized to within the range that she has had in that in the last few years. I suspect her chronic hyponatremia is probably related to her chronic use of hydrochlorothiazide as well as Prozac (SSRI) as well as due to her underlying lung disease which can potentiate/making more susceptible to hyponatremia in general. For completeness sake, I will check an SPEP, UPEP, urine electrolytes, and follow up on her serum and urine osmolality to assess if any other further interventions needs to be done with regard to this problem. I will introduce a mild fluid restriction to see if we can facilitate improvement in her sodium level a little bit faster but we may have to accept the fact that her sodium level will always runs a little on the lower side of normal in general. I will continue follow patient with you while she remains hospitalized and make further recommendations during her hospital course. Thank you for allowing me participate in the care this patient. History of Present Illness Reason for Consult Consult date: 06/16/19 Reason for consult: hyponatremia Chief Complaint Chief complaint: Cough History of Present Illness Narrative: The patient is a 79 year old female who presented to [facility] ER for further evaluation of a cough. She states she has been having shortness of breath for about a week which then led to the aforementioned cough for the next week. The cough is non-productive and she apparently has a chronic cough at baseline but this seems to be progressively getting worse in the last 10 days. She related some fevers and chills as well as decreased appetite but no nausea or vomiting. She denies any chest pain and does have longstanding orthopnea that may be a little bit worse than baseline. However, her cough is what is making the orthopnea worse. She denies any lower extremity swelling. Her chest is uncomfortable with her cough. Workup and evaluation in the emergency room demonstrated several laboratory abnormalities including hyponatremia, hypokalemia, and hypomagnesemia. Furthermore, S seen that her cough was more of a manifestation of her COPD and a likely exacerbation of it. Due to all these issues, she was subsequent admitted to the hospital for further evaluation and therapy. Renal consultation was requested due to her hyponatremia. From my discussion with the patient and review of her records, she has had some degree of hyponatremia that dates back as far as 2017. It would seem her sodium level usually runs around 129-135 millimoles per L at baseline although her sodium level was a little bit worse than this on presentation. Since her admission, her sodium level has not fully normalized but remains in the range of her baseline sodium levels. Currently, despite the a for mentioned hyponatremia, she has no symptoms related to this and otherwise appears to be in no apparent distre
--- NOTE | 2019-06-15 15:01 | PC.NURSE ---
Patient refuses Meclizine this afternoon. States she takes it prn at home. Patient also c/o nausea and requesting Zofran. Notified Wilma CASTANEDA of both of these things and orders received to repeat EKG to check for ST elevation. If resolved since receiving magnesium supplementation yesterday, Wilma states she will restart Zofran. Explained to patient and her daughter.
--- NOTE | 2019-06-15 15:03 | ECG_ITS ---
Measurements Intervals [place] Rate: 80 P: 43 CA: 145 QRS: -75 QRSD: 157 T: -13 QT: 429 QTc: 496 Interpretive Statements SINUS RHYTHM RIGHT BUNDLE BRANCH BLOCK LEFT ANTERIOR FASCICULAR BLOCK VOLTAGE CRITERIA FOR LVH CANNOT RULE OUT SEPTAL INFARCT, AGE INDETERMINATE BORDERLINE T WAVE ABNORMALITY- ANTERIOR LEADS BASELINE ARTIFACT- I, II, III, AVR, AVL, AVF ABNORMAL ECG Electronically Signed On 06-15-2019 15:27:09 BROACHING MACHINE SET UP OPERATOR by Mateo Hunt D.O.
[2019-06-15 16:42] LABS: Creatinine Urine 25.1 mg/dL
[2019-06-15 16:51] LABS: Sodium Urine Random 14 meq/L
[2019-06-15 16:59] LABS: Creatinine Urine 25.3 mg/dL; Total Protein Urine Random 28 mg/dL
[2019-06-15 17:09] LABS: Total Protein Urine Random 27 mg/dL
--- NOTE | 2019-06-15 18:00 | PC.NURSE ---
Per Wilma CASTANEDA, Reglan has been ordered for patient's nausea as her ST is still slightly elevated on her EKG. Discussed with patient. Patient refused first dose and stated she just needs to have a BM. Patient had Miralax earlier today. No results at this time. Abdomen distended but soft and active bowel sounds noted in all quadrants. 1899 Report given to Rosanna MAHONEY and she states she will call Dr. Baird to request an enema for the patient. (Patient requested an enema during bedside shift report). Patient also very anxious and states she has not had her Albuterol since she was admitted. Patient is receiving Albuterol/Atrovent nebs q6h. Discussed with patient and informed her that she is scheduled for her next treatment at 1999.
[2019-06-15] MEDS: METOCLOPRAMIDE HCL 10 MG TABLET PO (18:42)
[2019-06-15] MEDS: ZOLPIDEM TARTRATE 5 MG TABLET PO (21:44)
--- NOTE | 2019-06-15 23:25 | PC.NURSE ---
Went into pt room after she requested to speak with rn relief charge. Pt upset and stating that we are not doing anything for her. She stated that she did not want to have another IV started, that she did not want her bed alarm on and that she wanted to walk around with out any help. Pt stated that she wanted to drink as much water as she wanted. Pt upset stating she wanted to take her own home medication and that she was tired of being here. After listening to patient explained to patient reason for IV and fluid restriction, bed alarm and assistance with walking. Explained that we where trying to help her to get better and that Rosanna was call Veronique to speak with her about how she felt as well. Pt continued to refuse care, she refused her medication and stated that she just wants to go home. She stated that she wanted to call her friend and leave. Explained that Veronique ordered an xray and that she would talk to her after the results where in. Pt called her friend and stated that she was coming up and she would talk to her friend.
--- NOTE | 2019-06-15 23:35 | PM.EVENT ---
Event Note Event Note Event Note: I received a call from the patient's nurse at about 23:00. The patient is quite anxious, feeling as though she needs to have a bowel movement. She was given an enema not long before this phone call, without success. She takes an herbal laxative daily, and has for decades, which has been held since admission. A stat KUB was performed, showing gas in the colon, but only a small amount of stool. I came to speak with the patient regarding this, and she is extremely anxious and wishing to leave against medical advice. She tells me she feels like a Guinea pig, and she does not understand why she is receiving both IV fluids and being fluid restricted. I had a long discussion (> 20 minutes) at bedside with the patient and her friend, and attempts were made to explain to them why her sodium levels may be low and what we are trying to due to correct them. She is adamant about leaving against medical advice, as she does not want to be hooked up to IV fluids, does not want to be on a heart monitor, and just wants to take herbal laxative. We discussed the risks of leaving against medical advice including seizure, coma, and even should her sodium level continue to drop. She voiced understanding, and sign out against medical advice around midnight.
--- NOTE | 2019-06-16 01:02 | PC.NURSE ---
Pt requested an enema at shift change. I called Dr Baird at 2004 to request a enema which she ordered a soap suds enema. I then administered the enema; however, the enema was not successful and the patient requested more medication. I attempted to educate her in regards to the medication she has gotten and suggested walking some to help move things along. Patient refused her 2100 medication and stated all she wanted was her sleeping medicine and something to help her have a bowel movement. The patients IV went back in the process of the enema and she was very concerned that the bubble in my hand might kill me She would not allow me to attempt to start an IV she stated she will drink lots of water and take salt pills. The patient was very anxious and would not listen to any of the explanations or rationals behind her treatment. She continued to state that None of this is helping me, you don't know my body She also requested to talk to my charge nurse so I sent Saba Calles RN in to talk to her. I called Hospitalist around 0 to update and get orders to help the patient. Veronique Gutierrez ordered a stat KUB, I went in to explain the reason for the x-ray and that the Veronique Gutierrez will be down after the x-ray to talk with her. The patient stated she called her friend to come get her. I contacted the patients daughterMelida to notify her of the situation and see if she would talk to her which she did. I then returned to the patients room while Veronique Gutierrez was in there discussing her health and need to stay. However, the patient insisted that she was going home. I had her sign her AMA papers and helped her take her telemetry off and pushed her in a wheelchair down to her friends car.
[2019-06-18 20:11] LABS: Chloride Rand Ur 25 mmol/L (32-290); Chloride/Creatinine Rand Ur 96 (38-318); Creatinine Random Urine 26 mg/dL (20-275)
[2019-06-19 01:23] LABS: Creatinine, Random Urine 26 mg/dL (20-275); Total Protein/Creatinine Ratio 731 mg/g creat (21-161)
[2019-06-23 04:59] LABS: Osmolality, Urine 169 mOsm/kg (50-1200)
== END 2019-06-16 00:20 | disposition left against medical advice (07) | DRG 191 ==
LOC: ANHED 16:23 → ANH2MED 06-14 05:18
PROVIDERS: Emergency Medicine; Internal Medicine; Internal Medicine Nephrology; Admitting Provider Internal Medicine; Emergency Provider General Practice; Visit Provider Physician Assistant
DX: J44.1 Chronic obstructive pulmonary disease with (acute) exacerbation (principal); E87.1 Hypo-osmolality and hyponatremia; T50.2X5A Adverse effect of carbonic-anhydrase inhibitors, benzothiadiazides and other diuretics, initial encounter; T43.225A Adverse effect of selective serotonin reuptake inhibitors, initial encounter; E87.6 Hypokalemia; E83.42 Hypomagnesemia; I10 Essential (primary) hypertension; D64.9 Anemia, unspecified; M19.90 Unspecified osteoarthritis, unspecified site; I25.10 Atherosclerotic heart disease of native coronary artery without angina pectoris; K21.9 Gastro-esophageal reflux disease without esophagitis; L30.9 Dermatitis, unspecified; K59.00 Constipation, unspecified; F32.9 Major depressive disorder, single episode, unspecified; F41.9 Anxiety disorder, unspecified; I25.2 Old myocardial infarction; Z95.5 Presence of coronary angioplasty implant and graft; Z98.42 Cataract extraction status, left eye; Z98.41 Cataract extraction status, right eye
CPT/HCPCS: 36415; 36600; 71046; 74018; 80048; 80076; 81050; 82375; 82436; 82570; 82805; 83050; 83605; 83735; 83935; 84100; 84156; 84166; 84300; 84443; 84484; 85025; 87081; 87804; 93005; 93306; 94640; 94667; 94668; 96374; 97165; 99291; A9270; J0131; J3475; J7030; J7512

== ENCOUNTER 2019-06-17 07:46 | Inpatient (IN) | payer OTHER, MEDICARE, SELFPAY ==
[2019-06-17] VITALS (19 sets, daily range): BP systolic 131–199; BP diastolic 41–83; PULSE 64–96; RESP 14–24; TEMP 36.2–37.1; O2SAT 92–96
--- NOTE | ~2019-06-17 | XR_ITS ---
EXAMINATION: XR chest 1V portable DATE: 06/20/2019 13:50 INDICATION: Shortness of breath TECHNIQUE: frontal view of the chest was obtained. COMPARISON: Chest radiograph dated 06/19/2019 FINDINGS: Increased interstitial pattern in the bilateral lower lung zones consistent with mild pulmonary edema . Airspace opacities at the bilateral lung bases with blunting at the costophrenic angles consistent with small bilateral pleural effusions and associated basilar atelectasis and/or pneumonia. No pneumo thorax. The cardiomediastinal silhouette is normal. Suggestion of coronary artery stenting. Patient i s rotated towards the left. IMPRESSION: 1. Opacities in the bilateral lower lung zones consistent with mild pulmonary edema, small bilateral pleural effusions and associated basilar atelectasis and/or pneumonia. Reviewed, dictated and finalized at location A. VISION INSTALLER IMPRESSION: 1. Opacities in the bilateral lower lung zones consistent with mild pulmonary e papito, small bilateral pleural effusions and associated basilar atelectasis and/ or pneumonia.
--- NOTE | ~2019-06-17 | CT_ITS ---
EXAMINATION: CTA chest PE protocol EXAM DATE: 06/26/2019 16:28 INDICATION: Shortness of breath. TECHNIQUE: Spiral CTA of the chest (pulmonary arteries) was performed with 100 cc Omnipaque 350 intr avenous contrast injection. Images were acquired during the pulmonary arterial phase. Coronal maxi mum intensity projection 3D-reconstructions were created by the technologist on dedicated workstation . Axial, coronal and sagittal reformatted images were reviewed. The dose-length product (DLP) for t his examination was 183.81 mGy-cm. The exposure was tailored according to patient size (auto mA exp osure control), and iterative reconstruction (ASIR) was used as additional dose reduction technique. Comparison is made to prior examination from 2010. FINDINGS: There is right upper lobe anterior segmental pulmonary embolism. Left upper lobe posterior segmental pulmonary embolism. Right lower and middle lobe segmental pulmonary emboli. No large or britton tral pulmonary emboli. No thoracic aortic dissection. There are no pleural or pericardial effusions . There is completely collapsed left lower lobe, which appears to be filled with mucus, but finding which was present on previous examination. Uncertain whether or not this has redeveloped compared to prior study or is chronic. There is no mediastinal, hilar or axillary lymphadenopathy. There is no pneumothorax. Heart normal in size. There is mild coronary arterial calcification, arterial scle rosis. Several liver hypodensities are unchanged compared to prior study. Scattered mid thoracic co mpression fractures which appear chronic. IMPRESSION: 1. Positive for scattered small segmental pulmonary emboli. 2. Completely collapsed left lower lobe, could be redevelopment of mucus plugging or chronic finding given similar appearance in 2009. I discussed findings with Angelique Marquez MD at 06/26/2019 16:41 CDT . Reviewed, dictated and finalized at location A. IMPRESSION: 1. Positive for scattered small segmental pulmonary emboli. 2. Completely collapsed left lower lobe, could be redevelopment of mucus plugg ing or chronic finding given similar appearance in 2009. I discussed findings with Angelique Marquez MD at 06/26/2019 16:41 CDT .
--- NOTE | ~2019-06-17 | XR_ITS ---
XR abdomen obstructive series 06/20/2019 14:16 Indication: Abdominal distention Procedure: AP supine and upright views of the abdomen Comparison: 06/15/2019 Findings: There is moderate gas throughout the small bowel and colon. There are mildly dilated small bowel loops in the upper abdomen on upright view. Small pleural effusions. Left basilar airspace cons olidation has progressed. No acute osseous abnormality. Impression: 1: Mildly dilated small bowel with gas throughout the colon, most likely ileus. Partial obstruction l ess favored. 2: Progression of left lower lobe airspace consolidation, atelectasis versus pneumonia. 3: Small pleural effusions. Reviewed, dictated and finalized at location B. IR ARMATURE WINDER HELPER Impression: 1: Mildly dilated small bowel with gas throughout the colon, most likely ileus. Partial obstruction less favored. 2: Progression of left lower lobe airspace consolidation, atelectasis versus pn eumonia. 3: Small pleural effusions.
--- NOTE | ~2019-06-17 | CT_ITS ---
EXAMINATION:CT chest wo con DATE: 06/24/2019 10:28 INDICATION: Shortness of breath. Abnormal chest radiograph. TECHNIQUE: Computed tomography (CT) of the chest was performed without intravenous contrast. Automate d exposure control and iterative reconstruction technique were employed. The dose-length product (DLP ) was 206.25 mGy-cm. COMPARISON: Chest CT 07/10/2010, chest single view 06/20/2019 FINDINGS: There is total collapse of left lung lower lobe. There is mild atelectasis in the other lob es. There is a new 4 mm nodule in right lower lobe, likely benign. A calcified right lung nodule is c onsistent with old granulomatous disease. There is mucous plugging in bronchus intermedius and right lower lobe. There is a trace left pneumothorax. There is a trace right pleural effusion. The heart si ze is normal. There are coronary artery calcifications. No pericardial effusion. There are no patholo gically enlarged lymph nodes. There is an 11 mm cyst in the liver. There are chronic compression frac tures of T5 and T7. There is mild thoracic spondylosis. IMPRESSION: 1. Total collapse of left lung lower lobe. 2. Mucous plugging in bronchus intermedius and right lower lobe. 3. Trace left pneumothorax. Reviewed, dictated and finalized at location A. T FOLDING MACHINE OPERATOR
--- NOTE | ~2019-06-17 | CT_ITS ---
EXAMINATION: CT brain wo con EXAM DATE: 06/17/2019 09:07 INDICATION: Altered mental status. Cough. TECHNIQUE: Spiral CT of the head was performed without contrast. Axial, coronal and sagittal images were reviewed. The dose-length product (DLP) for this examination was 605.33 mGy-cm. The exposure w as tailored according to patient size, and iterative reconstruction (ASIR) was used as additional dos e reduction technique. Comparison is made to prior examination from 11/16/2016. FINDINGS: There is no acute intraparenchymal hemorrhage. No evidence of intraparenchymal brain mass lesion. No evidence of acute infarction. Please note that initial head CT has limited sensitivity f or small or acute infarctions. There is mild periventricular and subcortical hypodensity, nonspecific but probably related to small vessel ischemic disease. There is mild prominence of the sulci and v entricles related to cerebral atrophy. There is intracranial carotid arteriosclerosis. There are n o extra-axial collections. There is no mass effect or midline shift. Patient has had ocular lens rojas rgery. Soft tissue is unremarkable. The visualized sinuses and mastoid air cells are well aerated. IMPRESSION: 1. No acute intracranial findings. 2. Chronic age related findings. Reviewed, dictated and finalized at location B. HAND
--- NOTE | ~2019-06-17 | XR_ITS ---
XR chest 1V portable 06/25/2019 09:43 Indication: Cough, hypoxia. Respiratory failure. Procedure: AP portable chest Comparison: Comparison to multiple prior studies sequentially, with oldest reviewed study dated 06/13. Findings: Near-complete resolution of bibasilar airspace disease. Small residual left pleural effusio n with left basilar atelectasis. Stable cardiomegaly. There is atherosclerosis. No edema or pneumotho rax. Impression: 1: Near-complete resolution of bibasilar airspace disease. 2: Small left pleural effusion with adjacent compressive atelectasis. Reviewed, dictated and finalized at location A. NET AND TRIM INSTALLER Impression: 1: Near-complete resolution of bibasilar airspace disease. 2: Small left pleural effusion with adjacent compressive atelectasis.
--- NOTE | ~2019-06-17 | XR_ITS ---
EXAMINATION: XR chest 2V DATE: 06/17/2019 08:10 INDICATION: Shortness of breath. TECHNIQUE: Frontal and lateral views of the chest were obtained. COMPARISON: Chest 2 views 06/13/2019, chest CT 07/10/2010 FINDINGS: There are airspace opacities in the lower lung zones. No pleural effusion or pneumothorax. Cardiomegaly is noted. There is a chronic compression fracture mid thoracic spine. IMPRESSION: 1. Worsened airspace opacities in the lower lung zones, consistent with atelectasis or less likely pn eumonia. 2. Cardiomegaly. Reviewed, dictated and finalized at location A. MATIC CORN GRINDER OPERATOR IMPRESSION: 1. Worsened airspace opacities in the lower lung zones, consistent with atelect asis or less likely pneumonia. 2. Cardiomegaly.
--- NOTE | ~2019-06-17 | XR_ITS ---
EXAMINATION: XR chest 1V portable DATE: 06/19/2019 11:09 INDICATION: Shortness of breath and cough. TECHNIQUE: A single frontal view of the chest was obtained. COMPARISON: Chest 2 views 06/17/2019, chest CT 12/10/2010 FINDINGS: There is mild atelectasis at the lung bases. No pleural effusion or pneumothorax. The heart size is normal. IMPRESSION: 1. Mild atelectasis at the lung bases. Reviewed, dictated and finalized at location A. INE FELLER
--- NOTE | 2019-06-17 07:57 | ECG_ITS ---
Measurements Intervals [place] Rate: 86 P: 32 WV: 149 QRS: -74 QRSD: 162 T: 56 QT: 471 QTc: 566 Interpretive Statements SINUS RHYTHM VENTRICULAR PREMATURE COMPLEX POSSIBLE LEFT ATRIAL ENLARGEMENT RIGHT BUNDLE BRANCH BLOCK LEFT ANTERIOR FASCICULAR BLOCK LEFT VENTRICULAR HYPERTROPHY AND ST-T CHANGE ABNORMAL ECG Electronically Signed On 06-17-2019 8:16:13 LAUNCH MANAGER by Mateo Hunt D.O.
--- NOTE | 2019-06-17 08:12 | ED.SOB ---
HPI - SOB/Dyspnea General Chief Complaint: Shortness of Breath/Dyspnea Stated Complaint: DIFFICULTY BREATHING Time Seen by Provider: 06/17/19 08:12 Source: EMS Mode of arrival: EMS Limitations: clinical condition History of Present Illness HPI Narrative: Pt is an 79 y/o female who presents to the ED, via EMS, from [facility] with c/o SOB. Per EMS, they there called in for SOB but once they got there the pt was only responsive to painful stimuli and was not answering questions. A complete HPI is limited to clinical condition. MD elicited complaint: shortness of breath Onset (ago): unknown Associated symptoms: denies other symptoms Treatment prior to arrival: none Related Data Home Medications Medication Instructions Recorded Confirmed aspirin 81 mg tablet,delayed 81 mg PO DAILY 03/22/19 06/13/19 release atorvastatin 40 mg tablet 40 mg PO DAILY 03/22/19 06/13/19 cholecalciferol (vitamin D3) 25 1,000 unit PO DAILY 03/22/19 06/13/19 mcg (1,000 unit) capsule ferrous sulfate 325 mg (65 mg 325 mg PO DAILY tablet 03/22/19 06/13/19 iron) tablet fluoxetine 20 mg capsule 20 mg PO BID 03/22/19 06/13/19 metoprolol tartrate 25 mg tablet 25 mg PO BID tablet 03/22/19 06/13/19 pantoprazole 40 mg tablet,delayed 40 mg PO BID tablet 03/22/19 06/13/19 release meclizine 25 mg PO TID 06/13/19 06/13/19 nitroglycerin 0.4 mg SUBLINGUAL ONCE 06/13/19 06/13/19 ondansetron 4 mg PO Q6H 06/13/19 06/13/19 promethazine 25 mg PO Q6H PRN 06/13/19 06/13/19 triamcinolone acetonide 1 applic TOPICAL BID 06/13/19 06/13/19 multivitamin [Daily-Linnea] 1 tablet PO DAILY 06/17/19 Allergies Allergy/AdvReac Type Severity Reaction Status Date / Time budesonide [From Symbicort] Allergy Intermediate mouth Verified 03/22/19 14:03 ulcers formoterol [From Symbicort] Allergy Intermediate mouth Verified 03/22/19 14:03 ulcers Sulfa (Sulfonamide Allergy Intermediate Hives Verified 12/03/19 14:03 Antibiotics) Review of Systems Review of Systems: ROS unobtainable: unobtainable due to mental condition [facility] Past Medical History Medical History Anemia Distant history of anemia on iron supplements Anxiety Arthritis Asthma Back pain CAD (coronary artery disease) Angioplasty in the early , drug eluting stent to the proximal 1st obtuse marginal branch of the circumflex September 2014 COPD (chronic obstructive pulmonary disease) PFTs August of 2018 demonstrated moderate obstructive airway disease with severe small airway disease with no bronchodilator response and significant air trapping Depression Diastolic dysfunction Noted on cardiac catheterization from September 2014, with echocardiogram from September 2014 demonstrating moderate LVH with sigmoid hypertrophy of the septum, increased left heart filling pressures, EF of 70% with anterior lateral segment being hypokinetic Eczema GERD (gastroesophageal reflux disease) With symptoms of dysphagia resulting in an EGD by Dr. Byrd September 2018 with gastric polypectomy Heart attack Non STEMI September 2014 with stent placed in the obvious marginal branch of the circumflex Hemorrhoids Pneumonia UTI (urinary tract infection) Surgical History Surgical History H/O hemorrhoidectomy History of bilateral cataract extraction Hx of cardiac catheterization with stent placement Hx of cataract surgery Hx of left knee surgery Hx of tubal ligation Tubal ligation status Family History Family History (Updated 06/14/19 @ 05:18 by Kristin Baird DO) Sibling Diabetes mellitus Coronary artery disease One brother of complications of diabetes and had a history of heart disease. Her younger brother also had a history of a CABG. Father Lung cancer Mother Coronary artery disease She had an PR in her 70s. Son Quadriplegia, acute traumatic 1 son who is quadriplegic due to trauma. She also
[2019-06-17 08:15] LABS: Basophils Percent Auto 0.1 % (0.2-1.2); Eosinophils Percent Auto 0.2 % (0-4.4); Hematocrit 36.7 % (37.0-47.0); Hemoglobin 12.9 g/dL (12.0-15.0); Immature Granulocyte Absolute 0.02 K/mm3 (0.00-0.031); Immature Granulocyte Percent A 0.2 % (0-0.5); Lymphocytes Absolute Auto 2.34 K/mm3 (0.9-3.2); Lymphocytes Percent Auto 27.6 % (18.3-44.2); Mean Corpuscular HGB Conc 35.1 g/dl (32-36); Mean Corpuscular Hemoglobin 29.1 pg (26-34); Mean Corpuscular Volume 82.8 fl (80-100); Mean Platelet Volume 9.4 fl (7.4-10.4); Monocytes Absolute Auto 0.8 K/mm3 (0.1-0.6); Monocytes Percent Auto 9.6 % (2.6-8.5); Neutrophils Absolute Auto 5.3 K/mm3 (1.3-6.7); Neutrophils Percent Auto 62.3 % (45.5-73.1); Platelet Count Result 251 k/mm3 (150-375); Red Blood Count 4.43 M/mm3 (4.2-5.4); Red Cell Distribution Width 13.2 % (11.5-14.5); White Blood Count 8.5 K/mm3 (4.5-10.0)
--- NOTE | 2019-06-17 08:43 | PC.NURSE ---
ERP MATTHEW VERBAL ORDER FOR CT GIVEN.
--- NOTE | 2019-06-17 08:56 | PC.NURSE ---
TO CT AT THIS TIME PER TECH.
[2019-06-17 09:00] LABS: Blood Urea Nitrogen 8 mg/dL (7-17); Calcium 8.7 mg/dL (8.4-10.2); Carbon Dioxide 22 mmol/L (22-30); Chloride 84 mmol/L (98-107); Estimated CRCL calculation 77 ml/min; Estimated Glomerular Filt Rate > 60; Glucose 125 mg/dL (65-105); Potassium 2.8 mmol/L (3.4-5.0); Sodium 124 mmol/L (137-145)
--- NOTE | 2019-06-17 09:33 | PC.NURSE ---
SPOKE WITH ERP ABOUT ORDERS FOR PT R/T LAB RESULTS, ERP STATES THAT HE WILL BE PLACING ORDERS.
--- NOTE | 2019-06-17 10:08 | PC.NURSE ---
AGAIN SPOKE WITH PRABHU CASTRO ABOUT PT LABS, STILL WAITING ON NEW ORDERS.
--- NOTE | 2019-06-17 10:30 | PC.NURSE ---
STILL AWAITING ORDER FROM PRABHU CASTRO.
--- NOTE | 2019-06-17 10:56 | PC.NURSE ---
PRABHU CASTRO INFORMED AT THIS TIME THAT PT WILL BE ADMITTED TO THE HOSPITAL AND SLOWLY REHYRDRATED, PRABHU ALSO STATES THAT HE WILL BE ORDERING IVP POTASSIUM, AWAITING ORDERS.
[2019-06-17] MEDS: SODIUM CHLORIDE 0.9% IV 1,000 ML 75 ML IV CONT (11:17)
--- NOTE | 2019-06-17 13:08 | ADMGEN ---
This patient, Sola Osborne, was admitted to 2 Medical Room 257-01. Patient/family oriented to hospital policies and general routines including ID bracelet, bed and alarms, visiting hours, pain management, procedures, bathroom and other care routines, personal items, smoking policy, room service/diet, and visiting hours. Valuables list has been completed. Information on how to activate the Rapid Response Team has been discussed. Patient/Family are encouraged to report perceived risks to care and to ask questions if they do not understand what they are told or what they should do.
[2019-06-17] MEDS: IPRATROPIUM BR 0.02% INH SOLN 0.5 MG/2.5 ML VIAL INHALATION ×2 (14:49→20:20)
[2019-06-17] MEDS: ALBUTEROL SULFATE NEB 2.5 MG/0.5 ML INH 5 MG INHALATION ×2 (14:49→20:20)
[2019-06-17] MEDS: ACETAMINOPHEN 325 MG TABLET 650 MG PO (17:11)
--- NOTE | 2019-06-17 17:13 | PM.IMHP ---
H&P: HPI History of Present Illness Chief complaint: hyperkalemia Narrative: Sola Osborne is a 79 year old female pt lives in assisted living has been feeling short of breath and coughing alot. Pt has not been eating much. Found to have atelectasis on cxr and potassium levels is 2.8. Pt had potassium rider already started in ER. No other complaints apart from fatigue, sob and cough. Review of Systems Review of Systems: All systems reviewed & are unremarkable except as noted in HPI and below Constitutional: Constitutional: Reports fatigue and Reports malaise Respiratory: Respiratory: Reports chest congestion, Reports cough, Reports dyspnea and Reports wheezing PMFSH Past Medical History Medical History Anemia Distant history of anemia on iron supplements Anxiety Arthritis Asthma Back pain CAD (coronary artery disease) Angioplasty in the early , drug eluting stent to the proximal 1st obtuse marginal branch of the circumflex September 2014 COPD (chronic obstructive pulmonary disease) PFTs August of 2018 demonstrated moderate obstructive airway disease with severe small airway disease with no bronchodilator response and significant air trapping Depression Diastolic dysfunction Noted on cardiac catheterization from September 2014, with echocardiogram from September 2014 demonstrating moderate LVH with sigmoid hypertrophy of the septum, increased left heart filling pressures, EF of 70% with anterior lateral segment being hypokinetic Eczema GERD (gastroesophageal reflux disease) With symptoms of dysphagia resulting in an EGD by Dr. Byrd September 2018 with gastric polypectomy Heart attack Non STEMI September 2014 with stent placed in the obvious marginal branch of the circumflex Hemorrhoids Pneumonia UTI (urinary tract infection) Surgical History Surgical History H/O hemorrhoidectomy History of bilateral cataract extraction Hx of cardiac catheterization with stent placement Hx of cataract surgery Hx of left knee surgery Hx of tubal ligation Tubal ligation status Family History Family History Sibling Diabetes mellitus Coronary artery disease One brother of complications of diabetes and had a history of heart disease. Her younger brother also had a history of a CABG. Father Lung cancer Mother Coronary artery disease She had an DE in her 70s. Son Quadriplegia, acute traumatic 1 son who is quadriplegic due to trauma. She also has 3 other children. Social History Social History Social History: Primary care physician: Ha CASTANEDA Code status: DNI per patient request Smoking status: Never smoker Second hand tobacco smoke exposure: Yes Alcohol intake: never Substance use: never Substance use type: does not use Additional living arrangements comments: Patient resides at [facility]. She has 4 children. One of her children's quadriplegic due to a car accident. She would like her daughter Coleen Cormier and her other daughter Melida Gusman to be her surrogate decision makers. 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 Gender identity (if verbalized by the patient): Female Spiritual care concerns: No Agree to blood products: Yes Meds Home Medications and Allergies Home Medications Medication Instructions Recorded Confirmed Type aspirin 81 mg tablet,delayed 81 mg PO DAILY 03/22/19 06/17/19 History release atorvastatin 40 mg tablet 40 mg PO DAILY 03/22/19 06/17/19 History cholecalciferol (vitamin D3) 25 1,000 unit PO DAILY 03/22/19 06/17/19 History mcg (1,000 unit) capsule ferrous sulfate 325 mg (65 mg 325 mg PO DAILY tablet 03/22/19 06/17/19 History iron) tablet
[2019-06-17] MEDS: FLUOXETINE HCL 20 MG CAP PO (18:06)
[2019-06-17] MEDS: METOPROLOL TARTRATE 25 MG TABLET PO (18:13)
[2019-06-17] MEDS: PANTOPRAZOLE 40 MG TABLET PO (19:08)
[2019-06-17 20:19] LABS: Blood Urea Nitrogen 7 mg/dL (7-17); Calcium 8.5 mg/dL (8.4-10.2); Carbon Dioxide 21 mmol/L (22-30); Chloride 89 mmol/L (98-107); Estimated CRCL calculation 77 ml/min; Estimated Glomerular Filt Rate > 60; Glucose 122 mg/dL (65-105); Potassium 3.4 mmol/L (3.4-5.0); Sodium 125 mmol/L (137-145)
[2019-06-17] MEDS: DOXYCYCLINE HYCLATE 100 MG TABLET PO (20:52)
[2019-06-17] MEDS: ZOLPIDEM TARTRATE 5 MG TABLET PO (20:59)
[2019-06-18] VITALS (19 sets, daily range): BP systolic 139–163; BP diastolic 54–88; PULSE 68–85; RESP 18–22; TEMP 36.4–36.6; O2SAT 93–97
[2019-06-18] MEDS: IPRATROPIUM BR 0.02% INH SOLN 0.5 MG/2.5 ML VIAL INHALATION ×4 (03:20→20:00)
[2019-06-18] MEDS: ALBUTEROL SULFATE NEB 2.5 MG/0.5 ML INH 5 MG INHALATION ×4 (03:20→20:00)
[2019-06-18 05:20] LABS: Blood Urea Nitrogen 6 mg/dL (7-17); Calcium 8.3 mg/dL (8.4-10.2); Carbon Dioxide 23 mmol/L (22-30); Chloride 95 mmol/L (98-107); Estimated CRCL calculation 77 ml/min; Estimated Glomerular Filt Rate > 60; Glucose 101 mg/dL (65-105); Potassium 3.1 mmol/L (3.4-5.0); Sodium 127 mmol/L (137-145)
[2019-06-18] MEDS: ATORVASTATIN 40 MG TABLET PO (09:49)
[2019-06-18] MEDS: ASPIRIN 81 MG ENTERIC TABLET PO (09:49)
[2019-06-18] MEDS: PANTOPRAZOLE 40 MG TABLET PO ×2 (09:49→17:43)
[2019-06-18] MEDS: CHOLECALCIFEROL 1,000 UNIT TABLET 1000 UNITS PO (09:49)
[2019-06-18] MEDS: MULTIVITAMINS THERAPEUTIC TAB (*BKC) 1 TABLET PO (09:49)
[2019-06-18] MEDS: LOSARTAN POTASSIUM 100 MG TABLET PO (09:50)
[2019-06-18] MEDS: DOXYCYCLINE HYCLATE 100 MG TABLET PO ×2 (09:50→20:49)
[2019-06-18] MEDS: FLUOXETINE HCL 20 MG CAP PO ×2 (09:50→17:43)
[2019-06-18] MEDS: FERROUS SULFATE 324 MG TABLET PO (09:50)
[2019-06-18] MEDS: hydroCHLOROthiazide 25 MG TABLET PO (09:50)
[2019-06-18] MEDS: carvediloL 3.125 MG TABLET PO ×2 (09:52→20:48)
[2019-06-18 10:05] LABS: Blood Urea Nitrogen 6 mg/dL (7-17); Carbon Dioxide 22 mmol/L (22-30); Chloride 92 mmol/L (98-107); Estimated CRCL calculation 77 ml/min; Estimated Glomerular Filt Rate > 60; Glucose 156 mg/dL (65-105); Potassium 2.9 mmol/L (3.4-5.0); Sodium 126 mmol/L (137-145)
--- NOTE | 2019-06-18 13:22 | PM.IMPN ---
Progress Note: A&P Assessment and Plan (1) CAD (coronary artery disease): Code(s): I25.10 - Atherosclerotic heart disease of [place] coronary artery without angina pectoris Status: Chronic Assessment and Plan: On metoprolol and statin and ASA (2) Anxiety: Code(s): F41.9 - Anxiety disorder, unspecified Status: Acute Assessment and Plan: Pt takes sleeping aid for insomnia (3) Hypokalemia: Code(s): E87.6 - Hypokalemia Status: Acute Assessment and Plan: Pt had potassium rider in ED, pt to have potassium supplements today, enourage diet and ensures. Hopeful discharge tomorrow. (4) GERD (gastroesophageal reflux disease): Code(s): K21.9 - Gastro-esophageal reflux disease without esophagitis Status: Acute Assessment and Plan: Pt is on protonix and emetics for nausea and vomiting (5) Hypertension: Code(s): I10 - Essential (primary) hypertension Status: Acute Assessment and Plan: On metoprolol. losartan, Bp is stable (6) Acute exacerbation of chronic obstructive airways disease: Code(s): J44.1 - Chronic obstructive pulmonary disease with (acute) exacerbation Status: Acute Assessment and Plan: Pt on breathing treatments and oral doxycycline Subjective Date/time seen: 06/18/19 13:22 Interval history: Sola Osborne is a 79 year old female pt lives in assisted living has been feeling short of breath and coughing alot. Pt has not been eating much. Found to have atelectasis on cxr and potassium levels is 2.8. Pt feels slightly better, less Sob mild cough and weakness Review of Systems Review of Systems: All systems reviewed & are unremarkable except as noted in HPI and below Respiratory: Respiratory: Reports chest congestion, Reports cough and Denies dyspnea Exam Const: General: comfortable HENMT: Head: normocephalic Eyes: General: appearance normal, both eyes and all related structures Pupils: Equal, round and reactive pupils present Neck: Neck: supple Chest: Chest palpation & inspection: normal inspection of the chest Resp: Auscultation: wheezes and diminished lung sounds Cardio: Jugular venous distension: no JVD Rhythm: regular rhythm Heart sounds: S1 normal heart sound present and S2 normal heart sound present GI: Inspection: normal to inspection Auscultation: normal bowel sounds Back/Spine/Pelvis: Back: no CVA tenderness Skin: General skin exam: normal color and dry skin Neuro: Cranial nerves: Yes CN's II-XII intact bilaterally and Yes Equal, round and reactive pupils present Cognition (Neuro): normal cognition Speech: normal speech Motor exam (neuro): 5/5 motor strength present throughout Extrem: General: normal to inspection Psych: Appearance: grossly normal Mental Status: mental status grossly normal Objective Data Vital Signs Vital Signs: Vital Signs - 24 hr 06/17/19 14:12 06/17/19 14:50 06/17/19 14:56 Temperature 36.6 C Pulse Rate 83 77 78 Respiratory Rate 20 20 20 Blood Pressure 162/69 H Pulse Oximetry 93 06/17/19 16:00 06/17/19 18:13 06/17/19 20:00 Temperature Pulse Rate 92 86 64 Respiratory Rate Blood Pressure Pulse Oximetry 06/17/19 20:20 06/17/19 20:30 06/17/19 22:00 Temperature 36.2 C L Pulse Rate 76 76 65 Respiratory Rate 20 20 18 Blood Pressure 131/83 Pulse Oximetry 96 06/18/19 00:00 06/18/19 03:20 06/18/19 03:32 Temperature Pulse Rate 72 75 75 Respiratory Rate 20 20 Blood Pressure Pulse Oximetry 06/18/19 04:00 06/18/19 06:00 06/18/19 07:49 Temperature 36.6 C Pulse Rate 69 75 72 Respiratory Rate 18 22 H Blood Pressure 157/62 H Pulse Oximetry 96 06/18/19 07:50 06/18/19 08:00 06/18/19 09:00 Temperature Pulse Rate 81 75 Respiratory Rate 22 H Blood Pressure 158/54 H Pulse Oximetry 94 94 06/18/19 10:00 Temperature 36.4 C L Pulse Rate Respiratory Rate 20 Blood Pr
[2019-06-18] MEDS: POTASSIUM CHLORIDE 20 MEQ PACKET (FOR LIQUID) 40 MEQ PO (17:43)
[2019-06-18] MEDS: ZOLPIDEM TARTRATE 5 MG TABLET PO (21:45)
[2019-06-19] VITALS (19 sets, daily range): BP systolic 147–162; BP diastolic 63–87; PULSE 63–94; RESP 20–30; TEMP 36–36.2; O2SAT 94–98
[2019-06-19] MEDS: ALBUTEROL SULFATE NEB 2.5 MG/0.5 ML INH 5 MG INHALATION ×4 (03:00→22:07)
[2019-06-19] MEDS: IPRATROPIUM BR 0.02% INH SOLN 0.5 MG/2.5 ML VIAL INHALATION ×4 (03:00→22:07)
[2019-06-19] MEDS: FLUTICASONE PROPIONATE 0.05% NA SPR 16 GM BTL (*BKC) 1 SPRAY NASAL ×2 (08:57→21:02)
[2019-06-19 09:47] LABS: Blood Urea Nitrogen 6 mg/dL (7-17); Calcium 8.8 mg/dL (8.4-10.2); Carbon Dioxide 24 mmol/L (22-30); Chloride 87 mmol/L (98-107); Estimated CRCL calculation 94 ml/min; Estimated Glomerular Filt Rate > 60; Glucose 106 mg/dL (65-105); Potassium 2.9 mmol/L (3.4-5.0); Sodium 121 mmol/L (137-145)
[2019-06-19] MEDS: POTASSIUM CHLORIDE 20 MEQ PACKET (FOR LIQUID) 40 MEQ PO ×2 (09:59→17:50)
[2019-06-19] MEDS: hydroCHLOROthiazide 25 MG TABLET PO (10:00)
[2019-06-19] MEDS: carvediloL 3.125 MG TABLET PO ×2 (10:01→21:01)
[2019-06-19] MEDS: CHOLECALCIFEROL 1,000 UNIT TABLET 1000 UNITS PO (10:01)
[2019-06-19] MEDS: ASPIRIN 81 MG ENTERIC TABLET PO (10:01)
[2019-06-19] MEDS: FERROUS SULFATE 324 MG TABLET PO (10:01)
[2019-06-19] MEDS: DOXYCYCLINE HYCLATE 100 MG TABLET PO ×2 (10:01→21:01)
[2019-06-19] MEDS: FLUOXETINE HCL 20 MG CAP PO ×2 (10:01→17:50)
[2019-06-19] MEDS: LOSARTAN POTASSIUM 100 MG TABLET PO (10:02)
[2019-06-19] MEDS: ATORVASTATIN 40 MG TABLET PO (10:02)
[2019-06-19] MEDS: MULTIVITAMINS THERAPEUTIC TAB (*BKC) 1 TABLET PO (10:02)
[2019-06-19] MEDS: PANTOPRAZOLE 40 MG TABLET PO ×2 (10:02→17:50)
--- NOTE | 2019-06-19 12:56 | PM.IMPN ---
Progress Note: A&P Assessment and Plan (1) CAD (coronary artery disease): Code(s): I25.10 - Atherosclerotic heart disease of [place] coronary artery without angina pectoris Status: Chronic Assessment and Plan: On metoprolol and statin and ASA (2) Anxiety: Code(s): F41.9 - Anxiety disorder, unspecified Status: Acute Assessment and Plan: Pt takes sleeping aid for insomnia (3) Hypokalemia: Code(s): E87.6 - Hypokalemia Status: Acute Assessment and Plan: Pt had potassium rider in ED, pt to have potassium supplements today, enourage diet and ensures. Hopeful discharge soon. (4) GERD (gastroesophageal reflux disease): Code(s): K21.9 - Gastro-esophageal reflux disease without esophagitis Status: Acute Assessment and Plan: Pt is on protonix and emetics for nausea and vomiting (5) Hypertension: Code(s): I10 - Essential (primary) hypertension Status: Acute Assessment and Plan: On metoprolol. losartan, Bp is stable (6) Acute exacerbation of chronic obstructive airways disease: Code(s): J44.1 - Chronic obstructive pulmonary disease with (acute) exacerbation Status: Acute Assessment and Plan: Pt on breathing treatments and oral doxycycline, CXr still showing atelectasis (7) Nasal congestion: Code(s): R09.81 - Nasal congestion Status: Acute Assessment and Plan: Pt started on flonase did better with her breathing Subjective Date/time seen: 06/19/19 12:56 Interval history: Sola Osborne is a 79 year old female pt lives in assisted living has been feeling short of breath and coughing alot. Pt has not been eating much. Found to have atelectasis on cxr and potassium levels is low. Pt feels Sob, feels her nose is blocked and cannot breath. Review of Systems Review of Systems: All systems reviewed & are unremarkable except as noted in HPI and below Respiratory: Respiratory: Reports chest congestion, Reports cough and Reports wheezing Comments: nasal congestion Psychiatric: Psychiatric: Reports anxiety Exam Const: General: uncomfortable and other (SOB at rest ) HENMT: Head: normocephalic Eyes: General: appearance normal, both eyes and all related structures Pupils: Equal, round and reactive pupils present Neck: Neck: supple Chest: Chest palpation & inspection: normal inspection of the chest Resp: Auscultation: diminished lung sounds Cardio: Jugular venous distension: no JVD Rhythm: regular rhythm Heart sounds: S1 normal heart sound present and S2 normal heart sound present GI: Inspection: normal to inspection Auscultation: normal bowel sounds : General: Yes no CVA tenderness Back/Spine/Pelvis: Back: no CVA tenderness Skin: General skin exam: normal color and dry skin Neuro: Cranial nerves: Yes CN's II-XII intact bilaterally and Yes Equal, round and reactive pupils present Cognition (Neuro): normal cognition Speech: normal speech Motor exam (neuro): 5/5 motor strength present throughout Extrem: General: normal to inspection Psych: Appearance: grossly normal Mental Status: mental status grossly normal Objective Data Vital Signs Vital Signs: Vital Signs - 24 hr 06/18/19 13:36 06/18/19 13:45 06/18/19 14:00 Temperature 36.4 C L Pulse Rate 69 69 68 Respiratory Rate 20 20 20 Blood Pressure 139/88 Pulse Oximetry 93 97 06/18/19 16:00 06/18/19 20:00 06/18/19 20:10 Temperature Pulse Rate 78 72 70 Respiratory Rate 20 20 Blood Pressure Pulse Oximetry 06/18/19 20:48 06/18/19 22:00 06/19/19 00:00 Temperature 36.4 C Pulse Rate 85 76 63 Respiratory Rate 22 H Blood Pressure 163/63 H Pulse Oximetry 95 06/19/19 03:00 06/19/19 03:10 06/19/19 04:00 Temperature Pulse Rate 72 72 90 Respiratory Rate 20 20 Blood Pressure Pulse Oximetry 06/19/19 06:00 06/19/19 08:13 06/19/19 08:23 Temperature 36.2 C L Pulse Ra
[2019-06-19] MEDS: ZOLPIDEM TARTRATE 5 MG TABLET PO (22:42)
[2019-06-20] VITALS (20 sets, daily range): BP systolic 138–164; BP diastolic 54–84; PULSE 71–122; RESP 15–32; TEMP 36.1–36.4; O2SAT 92–99
[2019-06-20] MEDS: IPRATROPIUM BR 0.02% INH SOLN 0.5 MG/2.5 ML VIAL INHALATION ×2 (03:55→12:55)
[2019-06-20] MEDS: ALBUTEROL SULFATE NEB 2.5 MG/0.5 ML INH 5 MG INHALATION ×2 (03:55→12:55)
[2019-06-20 05:41] LABS: Hemoglobin 11.4 g/dL (12.0-15.0); Mean Corpuscular HGB Conc 35.6 g/dl (32-36); Mean Corpuscular Hemoglobin 29.3 pg (26-34); Mean Corpuscular Volume 82.3 fl (80-100); Mean Platelet Volume 9.1 fl (7.4-10.4); Platelet Count Result 259 k/mm3 (150-375); Red Blood Count 3.89 M/mm3 (4.2-5.4); Red Cell Distribution Width 13.2 % (11.5-14.5); White Blood Count 6.1 K/mm3 (4.5-10.0)
[2019-06-20 06:10] LABS: Blood Urea Nitrogen 7 mg/dL (7-17); Calcium 8.5 mg/dL (8.4-10.2); Carbon Dioxide 23 mmol/L (22-30); Chloride 83 mmol/L (98-107); Estimated CRCL calculation 66 ml/min; Estimated Glomerular Filt Rate > 60; Glucose 95 mg/dL (65-105); Potassium 3.4 mmol/L (3.4-5.0); Sodium 119 mmol/L (137-145)
[2019-06-20] MEDS: ASPIRIN 81 MG ENTERIC TABLET PO (08:50)
[2019-06-20] MEDS: MULTIVITAMINS THERAPEUTIC TAB (*BKC) 1 TABLET PO (08:50)
[2019-06-20] MEDS: FERROUS SULFATE 324 MG TABLET PO (08:51)
[2019-06-20] MEDS: DOXYCYCLINE HYCLATE 100 MG TABLET PO (08:51)
[2019-06-20] MEDS: ATORVASTATIN 40 MG TABLET PO (08:51)
[2019-06-20] MEDS: LOSARTAN POTASSIUM 100 MG TABLET PO (08:51)
[2019-06-20] MEDS: hydroCHLOROthiazide 25 MG TABLET PO (08:51)
[2019-06-20] MEDS: carvediloL 3.125 MG TABLET PO ×2 (08:51→21:55)
[2019-06-20] MEDS: FLUTICASONE PROPIONATE 0.05% NA SPR 16 GM BTL (*BKC) 1 SPRAY NASAL ×2 (08:51→21:55)
[2019-06-20] MEDS: FLUOXETINE HCL 20 MG CAP PO (08:51)
[2019-06-20] MEDS: PANTOPRAZOLE 40 MG TABLET PO (08:51)
[2019-06-20] MEDS: POTASSIUM CHLORIDE 20 MEQ PACKET (FOR LIQUID) 40 MEQ PO (08:52)
[2019-06-20] MEDS: SODIUM CHLORIDE 0.9% IV 1,000 ML 75 ML IV CONT (08:52)
[2019-06-20] MEDS: CHOLECALCIFEROL 1,000 UNIT TABLET 1000 UNITS PO (08:52)
[2019-06-20] MEDS: BENZONATATE 100 MG CAPSULE 200 MG PO (12:06)
[2019-06-20 12:39] LABS: Blood Urea Nitrogen 7 mg/dL (7-17); Calcium 8.6 mg/dL (8.4-10.2); Carbon Dioxide 21 mmol/L (22-30); Chloride 84 mmol/L (98-107); Estimated CRCL calculation 77 ml/min; Estimated Glomerular Filt Rate > 60; Glucose 100 mg/dL (65-105); Potassium 4.4 mmol/L (3.4-5.0); Sodium 120 mmol/L (137-145)
[2019-06-20] MEDS: FUROSEMIDE INJ 40 MG/4 ML VIAL IV PUSH (13:03)
[2019-06-20] MEDS: methylPREDNISolone SOD SUCC 125 MG VIAL IV PUSH (13:16)
[2019-06-20 13:23] LABS: Alveolar/Arterial O2 Gradient 474.7 mmHg; Base Excess ABG -10.5 mEq/l (+/-2.0); Fractional Inspired Oxygen 80 %; HCO3 ABG 18.3 mEq/l (22.0-26.0); Oxygen Content ABG 12.5 %vol (16.0-22.0); Oxyhemoglobin 61.3 % THb (90.0-100.0); PCO2 ABG 52.4 mmHg (35.0-45.0); PO2 FiO2 Ratio Arterial Blood 0.51 %; Total Hemoglobin 14.5 g/dL (12.0-18.0)
[2019-06-20 13:25] LABS: Modified Allen's Test Pass; PO2 ABG 40.7 mmHg (80.0-100.0); Site Drawn LEFT RADIAL; pH ABG 7.162 (7.350-7.450)
[2019-06-20 13:26] LABS: Device NASAL CANNULA
--- NOTE | 2019-06-20 13:38 | WPDCDIQUERY2 ---
CDI Query Clarification Request 2 queries: 1) -(06/17) Na-124, (06/18) Na- 121, (06/19) Na- 119, (06/19) Na 120 -EDP documented hyponatremia - No mention by hospitalist Please clarify on problem list if hyponatremia has been ruled in or ruled out. 2) - Found to have atelectasis on cxr documented. -Coders cannot code from findings on Xray If you agree with CXR findings of atelectasis, please document as a diagnosis. <Sherry Ferreira RN - Last Filed: 06/20/19 13:48>
[2019-06-20 14:37] LABS: Glucose Point of Care 194 (65-105)
--- NOTE | 2019-06-20 15:28 | PC.NURSE ---
Addendum entered by Winsome Daugherty RN 06/20/19 15:31: Approximately 1250 the [employer] notified this nurse of the patient having a difficult time breathing, upon arrival to the room the patient was sitting in a tripod position in the bed with labored breathing, the patient was also cyanotic looking and diaphoretic, O2 saturation was 56% on room air, heart rate was 122 bpm, patient was put on 2L nasal cannula . Dr. Marquez was outside of the patients' room, blood sugar was taken and was 197, breathing treatment was administered, and STAT ABG was draw. Dr. Marquez also ordered for Lasix and Solu-Medrol IVP and for a murdock catheter. After the results of the ABG Dr. Marquez and Dr. Andrews came to see the patient, patient was placed on BiPAP and orders for IMU transfer. Patients' daughter was present during this time. Original Note: Approximately 1250 the [employer] notified this nurse of the patient having a difficult time breathing, upon arrival to the room the patient was sitting in a tripod position in the bed with labored breathing, the patient was also cyanotic looking and diaphoretic, O2 saturation was 56% in . Dr. Marquez was outside of the patients' room, breathing treatment was administered
--- NOTE | 2019-06-20 15:37 | PC.NURSE ---
This patient, Sola Osborne, was transferred to [facility] on 06/20/19 at 1425. Personal belongings sent with patient. Belongings list checked and signed with receiving. Report given to Carol MAHONEY. Appropriate documentation sent with patient. Patients' daughter present at the time.
[2019-06-20 15:40] LABS: Alveolar/Arterial O2 Gradient 434.7 mmHg; Base Excess ABG -2.9 mEq/l (+/-2.0); Fractional Inspired Oxygen 80 %; HCO3 ABG 19.5 mEq/l (22.0-26.0); Oxygen Content ABG 18.7 %vol (16.0-22.0); Oxygen Saturation ABG 98.2 % (95.0-100.0); PCO2 ABG 28.1 mmHg (35.0-45.0); PO2 ABG 106.2 mmHg (80.0-100.0); PO2 FiO2 Ratio Arterial Blood 1.33 %; Total Hemoglobin 13.6 g/dL (12.0-18.0)
[2019-06-20 15:41] LABS: Device NON-INVASIVE VENT; Non-Invasive Expiratory Pressure 6 CMH2O; Non-Invasive Inspiratory Pressure 12 CMH2O; Non-Invasive Vent Rate 4 /MIN; Site Drawn RIGHT BRACHIAL
--- NOTE | 2019-06-20 17:43 | PM.CNNEP ---
Assessment and Plan Assessment and plan (1) Hyponatremia: Code(s): E87.1 - Hypo-osmolality and hyponatremia Status: Acute Assessment and Plan: The sodium level is low. This has been low for years dating back to 2014. In fact it is was also low between 2005 in 2009. The chronic hyponatremia may be due to several causes: She is on hydrochlorothiazide which can cause this especially in older ladys She is on Paxil. This can also cause hyponatremia. She has pulmonary issues including COPD and mild pulmonary hypertension. This can sometimes lead to hyponatremia as well, especially on a chronic basis. She is not on narcotics. She has no notable CULINARY ASSISTANT lesions. She had a CAT scan done a few years ago here which was negative. She does not have a history of active cancer. However she should make sure that she is up-to-date with her cancer surveillance. The patient also has acute hyponatremia. This may be due to her infection, or sometimes saline does it. Will put on a fluid restriction and not give any more IV fluids. We will check another sodium level to make sure it is not continuing to drop. We will also continue diuretics to get the patient out of pulmonary edema. She is already improving. (2) Acute exacerbation of chronic obstructive airways disease: Code(s): J44.1 - Chronic obstructive pulmonary disease with (acute) exacerbation Status: Acute Assessment and Plan: The patient is getting inhalers (3) Hypertension: Code(s): I10 - Essential (primary) hypertension Status: Acute Assessment and Plan: The blood pressure has been up and down this hospital stay. She is on losartan and carvedilol. He was on hydrochlorothiazide but I am stopping this. Consider amlodipine or other relatively neutral hypertensive depending on how her blood pressure does over the next few days. (4) CAD (coronary artery disease): Code(s): I25.10 - Atherosclerotic heart disease of [place] coronary artery without angina pectoris Status: Chronic Assessment and Plan: No chest pain. (5) GERD (gastroesophageal reflux disease): Code(s): K21.9 - Gastro-esophageal reflux disease without esophagitis Status: Acute Assessment and Plan: On pantoprazole. (6) Fluid overload, unspecified: Code(s): E87.70 - Fluid overload, unspecified Status: Acute Assessment and Plan: The patient is getting diuretics now she has had a brisk diuresis with her 1 dose of Lasix earlier today. She will get another dose tomorrow. History of Present Illness Reason for Consult Consult date: 06/20/19 Chief Complaint Chief complaint: hyperkalemia History of Present Illness Narrative: Sola is a very pleasant 79-year-old lady has hyponatremia. She was admitted because of shortness of breath. Turns out that she had COPD exacerbation. In the emergency room her potassium was low so she was supplemented. She was admitted and given supportive care. Her sodium level has been low. She was given normal saline because she was felt to be dehydrated and the sodium worsened. This morning she developed shortness of breath so the saline was discontinued and she was given some Lasix. She is on a BiPAP machine right now but she says that her breathing is much better now. She has made a lot of urine since the diuretics. Her sodium level has been low going back to 2015. Her sodium level generally has been around 130 and stable. She remembers her primary care physician talking about her low sodium and that there were just watching it. She has been on Paxil for many years and also has been on hydrochlorothiazide. She has no history of cancer. She does have mild pulmonary hypertension and some COPD. She has not had any stroke or brain tumors. No history of cancer. She is not on narcotics. Review of Systems Constitutional: Constitutional: Reports no additional constitution
[2019-06-20] MEDS: methylPREDNISolone SOD SUCC 125 MG VIAL 60 MG IV PUSH (17:59)
--- NOTE | 2019-06-20 18:23 | PM.IMPN ---
Progress Note: A&P Assessment and Plan (1) CAD (coronary artery disease): Code(s): I25.10 - Atherosclerotic heart disease of [place] coronary artery without angina pectoris Status: Chronic Assessment and Plan: On metoprolol and statin and ASA (2) Anxiety: Code(s): F41.9 - Anxiety disorder, unspecified Status: Acute Assessment and Plan: Pt takes sleeping aid for insomnia (3) Hypokalemia: Code(s): E87.6 - Hypokalemia Status: Acute Assessment and Plan: Pt had potassium rider in ED, pt to have potassium supplements today, enourage diet and ensures. Hopeful discharge soon. (4) GERD (gastroesophageal reflux disease): Code(s): K21.9 - Gastro-esophageal reflux disease without esophagitis Status: Acute Assessment and Plan: Pt is on protonix and emetics for nausea and vomiting (5) Hypertension: Code(s): I10 - Essential (primary) hypertension Status: Acute Assessment and Plan: On metoprolol. losartan, Bp is stable (6) Acute exacerbation of chronic obstructive airways disease: Code(s): J44.1 - Chronic obstructive pulmonary disease with (acute) exacerbation Status: Acute Assessment and Plan: Pt on breathing treatments and oral doxycycline, CXr still showing atelectasis Sola Osborne is a 79 year old female pt lives in assisted living has been feeling short of breath and coughing alot. Pt has not been eating much. Found to have atelectasis on cxr and potassium levels is low as well as hyponatremia. Today the patient was quite hypoxic experiencing difficulty with breathing patient was given Lasix 40 mg IV Solu-Medrol 125 mg IV push ABG was done which showed the patient was hypoxic and BiPAP was placed discussed with camera repairer who also examined the patient and transfer the patient to IMU DC doxycycline started the patient on Rocephin and azithromycin will continue Solu-Medrol 60 mg every 6 hours and Lasix 40 mg q 6, ABG showed improvement in patient's pH elevated CO2 will continue to monitor patient overnight IMU and will use BiPAP as needed. Her daughter is present in the room explained the situation answered all her questions (7) Nasal congestion: Code(s): R09.81 - Nasal congestion Status: Acute Assessment and Plan: Pt started on flonase did better with her breathing (8) Hyponatremia: Code(s): E87.1 - Hypo-osmolality and hyponatremia Status: Acute Assessment and Plan: Patient with history of mild hyponatremia now exacerbated patient was seen by Dr. Tidwell and discussed will place the patient on fluid restriction and started the patient on Lasix will monitor Subjective Date/time seen: 06/20/19 18:23 Interval history: Sola Osborne is a 79 year old female pt lives in assisted living has been feeling short of breath and coughing alot. Pt has not been eating much. Found to have atelectasis on cxr and potassium levels is low as well as hyponatremia. Today the patient was quite hypoxic experiencing difficulty with breathing patient was given Lasix 40 mg IV Solu-Medrol 125 mg IV push ABG was done which showed the patient was hypoxic and BiPAP was placed discussed with camera repairer who also examined the patient and transfer the patient to IMU, ABG showed improvement in patient's pH elevated CO2 will continue to monitor patient overnight IMU and will use BiPAP as needed. Her daughter is present in the room explained the situation answered all her questions Review of Systems Review of Systems: ROS unobtainable: unobtainable due to mental condition Exam Narrative: Exam Narrative: Elderly frail Const: General: uncomfortable HENMT: General nose exam: Normal nares present Mouth: Yes moist mucous membranes Eyes: General: appearance normal, both eyes and all related structures Sclera: sclerae normal Neck: Neck: supple Resp: Other: Bilateral poor air entry with harsh breath sounds
[2019-06-20 19:00] LABS: Sodium 119 mmol/L (137-145)
[2019-06-20 19:48] LABS: Sodium Urine Random 71 meq/L
[2019-06-20 20:53] LABS: Alveolar/Arterial O2 Gradient 441.9 mmHg; Base Excess ABG 1.9 mEq/l (+/-2.0); Carboxyhemoglobin 0.3 % THb (0-2.0); Device NON-INVASIVE VENT; Fractional Inspired Oxygen 80 %; HCO3 ABG 24.9 mEq/l (22.0-26.0); Methemoglobin ABG 0.3 %THb (0-1.5); Modified Allen's Test Pass; Oxygen Content ABG 19.2 %vol (16.0-22.0); Oxygen Saturation ABG 97.6 % (95.0-100.0); Oxyhemoglobin 96.5 % THb (90.0-100.0); PCO2 ABG 34.3 mmHg (35.0-45.0); PO2 ABG 92.5 mmHg (80.0-100.0); PO2 FiO2 Ratio Arterial Blood 1.16 %; Reduced Hemoglobin 2.9 %THb (0-5.0); Site Drawn LEFT RADIAL; Total Hemoglobin 14.1 g/dL (12.0-18.0); pH ABG 7.479 (7.350-7.450)
[2019-06-20 20:54] LABS: Non-Invasive Expiratory Pressure 6 CMH2O; Non-Invasive Inspiratory Pressure 12 CMH2O; Non-Invasive Vent Rate 4 /MIN
[2019-06-20] MEDS: SODIUM CHLORIDE 1 GM TABLET PO (21:55)
[2019-06-21] VITALS (19 sets, daily range): BP systolic 125–169; BP diastolic 49–74; PULSE 75–94; RESP 17–30; TEMP 36.1–36.9; O2SAT 89–98
[2019-06-21] MEDS: methylPREDNISolone SOD SUCC 125 MG VIAL 60 MG IV PUSH ×5 (00:40→23:46)
[2019-06-21 05:21] LABS: Blood Urea Nitrogen 12 mg/dL (7-17); Calcium 8.9 mg/dL (8.4-10.2); Carbon Dioxide 20 mmol/L (22-30); Chloride 80 mmol/L (98-107); Estimated CRCL calculation 77 ml/min; Estimated Glomerular Filt Rate > 60; Glucose 136 mg/dL (65-105); Magnesium 1.4 mg/dL (1.6-2.3); Phosphorus 4.5 mg/dL (2.5-4.5); Potassium 3.3 mmol/L (3.4-5.0); Sodium 118 mmol/L (137-145)
--- NOTE | 2019-06-21 08:20 | ECG_ITS ---
Measurements Intervals [place] Rate: 92 P: 87 NV: 158 QRS: -66 QRSD: 162 T: 10 QT: 456 QTc: 566 Interpretive Statements SINUS RHYTHM RIGHT BUNDLE BRANCH BLOCK LEFT ANTERIOR FASCICULAR BLOCK LEFT VENTRICULAR HYPERTROPHY AND ST-T CHANGE BASELINE ARTIFACT- II, III, AVR, AVF ABNORMAL ECG Electronically Signed On 06-21-2019 8:55:12 GRANT MANAGER by Mateo Hunt D.O.
[2019-06-21] MEDS: ASPIRIN 81 MG ENTERIC TABLET PO (08:58)
[2019-06-21] MEDS: ATORVASTATIN 40 MG TABLET PO (08:59)
[2019-06-21] MEDS: FUROSEMIDE INJ 40 MG/4 ML VIAL 20 MG IV PUSH ×2 (09:01→17:11)
[2019-06-21] MEDS: FLUTICASONE PROPIONATE 0.05% NA SPR 16 GM BTL (*BKC) 1 SPRAY NASAL ×2 (09:01→21:57)
[2019-06-21] MEDS: carvediloL 3.125 MG TABLET PO ×2 (09:02→21:57)
[2019-06-21] MEDS: POTASSIUM CHLORIDE 20 MEQ PACKET (FOR LIQUID) 40 MEQ PO (09:02)
[2019-06-21] MEDS: FERROUS SULFATE 324 MG TABLET PO (09:03)
[2019-06-21] MEDS: CHOLECALCIFEROL 1,000 UNIT TABLET 1000 UNITS PO (09:04)
[2019-06-21] MEDS: FLUOXETINE HCL 20 MG CAP PO (09:05)
[2019-06-21] MEDS: LOSARTAN POTASSIUM 100 MG TABLET PO (09:06)
[2019-06-21] MEDS: PANTOPRAZOLE 40 MG TABLET PO ×2 (09:07→17:13)
[2019-06-21] MEDS: MULTIVITAMINS THERAPEUTIC TAB (*BKC) 1 TABLET PO (09:07)
[2019-06-21 09:10] LABS: Troponin I 0.884 ng/mL (0.000-0.034)
--- NOTE | 2019-06-21 09:18 | WPDCDIQUERY2 ---
CDI Query Clarification Request -06/19 ABG's pH 7.162 pCO2 52.4 pO2 40.7 HCO3 18.3 O2 sats 62% on 15LO2 -Hypoxia documented - RR 32 and cyanosis, restlessness, labored breathing and tripod position documented by nursing -Pt placed on Bipap with O2 at 2L Please clarify if there is a corresponding diagnosis for above respiratory status. <Sherry Ferreira RN - Last Filed: 06/21/19 09:27>
--- NOTE | 2019-06-21 09:51 | PCPTNOTE ---
Spoke w/ Dr Marquez regarding pt's decline in medical status and transfer to IMU. He gave verbal order to continue w/ PT/OT .
--- NOTE | 2019-06-21 10:18 | PM.PNNEP ---
Progress Note: A&P Assessment and Plan (1) Hyponatremia: Code(s): E87.1 - Hypo-osmolality and hyponatremia Status: Acute Assessment and Plan: The sodium level is low. This has been low for years dating back to 2014. In fact it is was also low between 2005 in 2009. The chronic hyponatremia may be due to several causes: She is on hydrochlorothiazide which can cause this especially in older ladys She is on Paxil. This can also cause hyponatremia. She has pulmonary issues including COPD and mild pulmonary hypertension. This can sometimes lead to hyponatremia as well, especially on a chronic basis. The evaluation of a chronic issue will need to wait until the acute episode is over The patient also has acute hyponatremia. This may be due to her infection, or sometimes saline does it. Urine sodium was not low however she was on Lasix. Currently she is being treated with lower dose Lasix, salt tablets with each dose of Lasix, and fluid restriction of 1000cc. She is very thirsty. Will hold off on the salt tablets, and give a dose of 3% saline since she is confused. Watch closely for auto correction. Discussed at length with . (2) Acute exacerbation of chronic obstructive airways disease: Code(s): J44.1 - Chronic obstructive pulmonary disease with (acute) exacerbation Status: Acute Assessment and Plan: The patient is getting inhalers (3) Hypertension: Code(s): I10 - Essential (primary) hypertension Status: Acute Assessment and Plan: The blood pressure has been up and down this hospital stay. She is on losartan and carvedilol. Will increase carvedilol. (4) CAD (coronary artery disease): Code(s): I25.10 - Atherosclerotic heart disease of [place] coronary artery without angina pectoris Status: Chronic Assessment and Plan: No chest pain. (5) GERD (gastroesophageal reflux disease): Code(s): K21.9 - Gastro-esophageal reflux disease without esophagitis Status: Acute Assessment and Plan: On pantoprazole. (6) Fluid overload, unspecified: Code(s): E87.70 - Fluid overload, unspecified Status: Acute Assessment and Plan: The patient had a good diuresis from the 40 mg dose yesterday. I reduced the dose to20mg twice a day to continue with the diuresis but help with the sodium as well. Subjective Date/time seen: 06/21/19 10:18 Interval history: Patient is tired and weak. She has some difficulty concentrating. No chest pain. She is less short of breath. She is off the BiPAP machine today. Review of Systems Review of Systems: ROS unobtainable: unobtainable due to mental condition Exam Narrative: Exam Narrative: Well developed well-nourished in no acute distress Lungs clear Heart regular without rub Abdomen bowel sounds positive soft nontender Extremities no edema Skin no rash Objective Data Vital Signs Vital Signs: Vital Signs - 24 hr 06/20/19 12:00 06/20/19 13:00 06/20/19 13:14 Temperature Pulse Rate 75 120 H 122 H Respiratory Rate 32 H 32 H Blood Pressure Pulse Oximetry 06/20/19 13:46 06/20/19 14:15 06/20/19 15:34 Temperature 36.1 C L Pulse Rate 120 H 97 101 H Respiratory Rate 29 H 19 20 Blood Pressure 143/63 H Pulse Oximetry 94 97 98 06/20/19 16:00 06/20/19 19:59 06/20/19 20:00 Temperature 36.3 C L 36.4 C Pulse Rate 89 83 84 Respiratory Rate 15 18 Blood Pressure 138/64 164/71 H Pulse Oximetry 98 98 06/20/19 21:55 06/20/19 22:00 06/20/19 23:54 Temperature 36.2 C L Pulse Rate 98 99 94 Respiratory Rate 18 18 Blood Pressure 159/84 H Pulse Oximetry 93 99 06/21/19 00:00 06/21/19 01:38 06/21/19 04:00 Temperature 36.1 C L Pulse Rate 81 83 88 Respiratory Rate 22 H Blood Pressure 168/74 H Pulse Oximetry 96 06/21/19 05:58 06/21/19 08:00 06/21/19 08:11 Temperature 36.9 C Pulse Rate 91 93 Respiratory
[2019-06-21] MEDS: MAGNESIUM SULF 2 GM/WATER 50ML 2 GM/50 ML BAG IVPB (11:41)
[2019-06-21 12:41] LABS: Troponin I 0.648 ng/mL (0.000-0.034)
[2019-06-21 15:20] LABS: Sodium 123 mmol/L (137-145)
[2019-06-21 15:39] LABS: Troponin I 0.658 ng/mL (0.000-0.034)
[2019-06-21] MEDS: NYSTATIN 100,000 UNITS/ML SUSP 5 ML ORAL.SUSP PO ×2 (17:11→21:57)
--- NOTE | 2019-06-21 18:41 | PM.IMPN ---
Progress Note: A&P Assessment and Plan (1) CAD (coronary artery disease): Code(s): I25.10 - Atherosclerotic heart disease of [place] coronary artery without angina pectoris Status: Chronic Assessment and Plan: On metoprolol and statin and ASA (2) Anxiety: Code(s): F41.9 - Anxiety disorder, unspecified Status: Acute Assessment and Plan: Pt takes sleeping aid for insomnia (3) Hypokalemia: Code(s): E87.6 - Hypokalemia Status: Acute Assessment and Plan: Pt had potassium rider in ED, pt to have potassium supplements today, enourage diet and ensures. Hopeful discharge soon. (4) GERD (gastroesophageal reflux disease): Code(s): K21.9 - Gastro-esophageal reflux disease without esophagitis Status: Acute Assessment and Plan: Pt is on protonix and emetics for nausea and vomiting (5) Hypertension: Code(s): I10 - Essential (primary) hypertension Status: Acute Assessment and Plan: On metoprolol. losartan, Bp is stable (6) Acute exacerbation of chronic obstructive airways disease: Code(s): J44.1 - Chronic obstructive pulmonary disease with (acute) exacerbation Status: Acute Assessment and Plan: 06/21/19 18:41 Pt on breathing treatments and oral doxycycline, CXr still showing atelectasis Sola Osborne is a 79 year old female pt lives in assisted living has been feeling short of breath and coughing alot. Pt has not been eating much. Found to have atelectasis on cxr and potassium levels is low as well as hyponatremia. Today the patient was quite hypoxic experiencing difficulty with breathing patient was given Lasix 40 mg IV Solu-Medrol 125 mg IV push ABG was done which showed the patient was hypoxic and BiPAP was placed discussed with studio producer who also examined the patient and transfer the patient to IMU DC doxycycline started the patient on Rocephin and azithromycin will continue Solu-Medrol 60 mg every 6 hours and Lasix 40 mg q 6, ABG showed improvement in patient's pH elevated CO2 will continue to monitor patient overnight IMU and will use BiPAP as needed. Today patient complained of chest tropes were ordered and are elevated, once patient's respiratory symptoms are stable will taper Solu-Medrol to prednisone will continue to monitor, today patient is more alert and, her daughter and so are present in the room explained the situation answered all her questions (7) Nasal congestion: Code(s): R09.81 - Nasal congestion Status: Acute Assessment and Plan: Pt started on flonase did better with her breathing (8) Hyponatremia: Code(s): E87.1 - Hypo-osmolality and hyponatremia Status: Acute Assessment and Plan: Patient with history of mild hyponatremia now exacerbated patient was seen by Dr. Tidwell and discussed will place the patient on fluid restriction and started the patient on Lasix will monitor (9) Acute hypercapnic respiratory failure: Code(s): J96.02 - Acute respiratory failure with hypercapnia Status: Acute Assessment and Plan: Most likely secondary to exacerbation of COPD patient is being treated and plan is above (10) Elevated troponin: Code(s): R79.89 - Other specified abnormal findings of blood chemistry Status: Acute Assessment and Plan: Patient with complaint of chest pain elevated tropes most likely secondary to exacerbation of COPD hypercapnic respiratory failure however we have consulted field education coordinator further recommendation Subjective Date/time seen: 06/21/19 18:41 Pt on breathing treatments and oral doxycycline, CXr still showing atelectasis Sola Osborne is a 79 year old female pt lives in assisted living has been feeling short of breath and coughing alot. Pt has not been eating much. Found to have atelectasis on cxr and potassium levels is low as well as hyponatremia. Today the patient was quite hypoxic experiencing difficulty with
--- NOTE | 2019-06-21 18:46 | WPDCN ---
Assessment and Plan Assessment and plan (1) Acute hypercapnic respiratory failure: Code(s): J96.02 - Acute respiratory failure with hypercapnia Status: Acute Assessment and Plan: History of COPD admitted with hypercarbic hypoxic respiratory failure, requiring BiPAP. (2) Elevated troponin: Code(s): R79.89 - Other specified abnormal findings of blood chemistry Status: Acute Assessment and Plan: Patient had mildly elevated troponins on admission, min max 0.8. Not surprising in view of her respiratory failure and hypoxia superimposed on CAD. Had some chest pain this morning. EKG yesterday did not show any acute ischemic changes. She has been having problems with hypoxia off and on and is back on BiPAP. Doubt ACS. Will check an EKG in the morning. Continue efforts to reduce cardiac stress by treating hypoxia, HTN, COPD etc. TNG prn. (3) CAD (coronary artery disease): Code(s): I25.10 - Atherosclerotic heart disease of [place] coronary artery without angina pectoris Status: Chronic Assessment and Plan: History of non-STEMI and OM stent 2014, EF 50-55% at that time (4) Hypertension: Code(s): I10 - Essential (primary) hypertension Status: Acute Assessment and Plan: Will follow. (5) Hypokalemia: Code(s): E87.6 - Hypokalemia Status: Acute Assessment and Plan: Addressed (6) Hyponatremia: Code(s): E87.1 - Hypo-osmolality and hyponatremia Status: Acute Assessment and Plan: Addressed by Nephrology (7) Fluid overload, unspecified: Code(s): E87.70 - Fluid overload, unspecified Status: Acute Assessment and Plan: Small bilateral effusions, not terribly volume overloaded however. HPI Data of Consult Date/Time: 06/21/19 18:46 Requesting Physician: Donna Stewart MD Primary Care Provider: RM ShafferC Family Provider: Jr Bah MD Consult Narrative Reason for consult: Elevated troponins, history of CAD Narrative: Date of service: 06/21/2019 Sola Osborne is a 79 year old female whom we were asked to see at the request of Dr. Stewart for my advice and opinion regarding her elevated troponin, in consultation. She has a history of CAD, COPD, chronic hyponatremia, HTN and anxiety. The patient, who is chronically short of breath, developed increased cough over the last week or so. EMS was called for shortness of breath and on their arrival she was responsive to pain. She was in hypercarbic hypoxic respiratory failure, Missy and started on BiPAP. She was also found to have severe hyponatremia, hypokalemia, and elevated troponins of 0.88, 0.65 and 0.66. This morning she was found holding her chest and on questioning by her daughter Coleen, she admitted that she was having some chest discomfort which was not severe, lasting for few minutes. As far STEMI know she has not been having any anginal using nitroglycerin at [facility]. The patient has a history of a non-STEMI in 2014. The 1st obtuse marginal was subtotally occluded and stented by Dr. Giron. Her EF was 50-55%. Echo at that time showed EF 70%, moderate LVH and mild mitral regurgitation. She is now followed by Dr. Gresham in our office. The history was obtained from the patient, cannot provide much history because she is on BiPAP, her daughter Coleen, and the EMR. Review of Systems Review of Systems: ROS unobtainable: unobtainable due to mental condition (Difficult to obtain review of systems from the patient as she is on BiPAP..) Constitutional: Constitutional: Reports fatigue, Reports lethargy and Reports weakness Eyes: Eyes: Reports no additional eye complaints ENT: Denies epistaxis Cardiovascular: Cardiovascular: Reports chest pain, Denies leg edema and Denies palpitations Respiratory: Respiratory: Reports chest congestion, Reports cough, Reports dys
[2019-06-21 20:59] LABS: Sodium 123 mmol/L (137-145)
[2019-06-21] MEDS: WATER, STERILE FOR INJECTION 10 ML VIAL XX (21:57)
[2019-06-21] MEDS: OLANZapine 10 MG INJ VIAL 2.5 MG IM (21:58)
[2019-06-22] VITALS (20 sets, daily range): BP systolic 98–151; BP diastolic 42–87; PULSE 61–97; RESP 19–24; TEMP 36.1–36.6; O2SAT 88–100
[2019-06-22 05:21] LABS: Albumin Level 3.6 g/dL (3.5-5.1); Blood Urea Nitrogen 26 mg/dL (7-17); Carbon Dioxide 28 mmol/L (22-30); Chloride 87 mmol/L (98-107); Estimated CRCL calculation 41 ml/min; Estimated Glomerular Filt Rate 53; Glucose 137 mg/dL (65-105); Magnesium 2.2 mg/dL (1.6-2.3); Phosphorus 4.6 mg/dL (2.5-4.5); Sodium 125 mmol/L (137-145)
[2019-06-22] MEDS: methylPREDNISolone SOD SUCC 125 MG VIAL 60 MG IV PUSH ×3 (05:54→17:24)
--- NOTE | 2019-06-22 08:00 | ECG_ITS ---
Measurements Intervals [place] Rate: 76 P: 64 SD: 131 QRS: -71 QRSD: 150 T: -27 QT: 462 QTc: 521 Interpretive Statements SINUS RHYTHM POSSIBLE LEFT ATRIAL ENLARGEMENT RIGHT BUNDLE BRANCH BLOCK LEFT ANTERIOR FASCICULAR BLOCK BASELINE ARTIFACT- I, III, AVR, AVL, AVF ABNORMAL ECG Electronically Signed On 06-22-2019 12:12:21 [employer] by Mateo Hunt D.O.
--- NOTE | 2019-06-22 08:35 | PM.PNNEP ---
Progress Note: A&P Assessment and Plan (1) Hyponatremia: Code(s): E87.1 - Hypo-osmolality and hyponatremia Status: Acute Assessment and Plan: The sodium level is low. This has been low for years dating back to 2014. In fact it is was also low between 2005 in 2009. The chronic hyponatremia may be due to several causes: She is on hydrochlorothiazide which can cause this especially in older ladys She is on Paxil. This can also cause hyponatremia. She has pulmonary issues including COPD and mild pulmonary hypertension. This can sometimes lead to hyponatremia as well, especially on a chronic basis. The patient also has acute hyponatremia. This may be due to her infection, or sometimes saline does it. Urine sodium was not low however she was on Lasix. Currently she is being treated with fluid restriction of 1000cc. she received 3% saline to raise the sodium by approximately 3. the post dose sodium was 123. this morning it is 125. her prior baseline was 128. will check another sodium at 3pm today. (2) Acute exacerbation of chronic obstructive airways disease: Code(s): J44.1 - Chronic obstructive pulmonary disease with (acute) exacerbation Status: Acute Assessment and Plan: The patient is getting inhalers (3) Hypertension: Code(s): I10 - Essential (primary) hypertension Status: Acute Assessment and Plan: The blood pressure has better lately. She is on losartan and carvedilol. (4) CAD (coronary artery disease): Code(s): I25.10 - Atherosclerotic heart disease of [place] coronary artery without angina pectoris Status: Chronic Assessment and Plan: No chest pain. (5) GERD (gastroesophageal reflux disease): Code(s): K21.9 - Gastro-esophageal reflux disease without esophagitis Status: Acute Assessment and Plan: On pantoprazole. (6) Fluid overload, unspecified: Code(s): E87.70 - Fluid overload, unspecified Status: Acute Assessment and Plan: on lasix 20mg bid. i/o negative yesterday. watch the sodium on the lasix. Subjective Date/time seen: 06/22/19 08:35 Interval history: Patient is more alert and interactive. Daughter in the room and concurs. No chest pain. no sob. Review of Systems Review of Systems: ROS unobtainable: unobtainable due to mental condition Constitutional: Constitutional: Reports no additional constitutional complaints Eyes: Eyes: Reports no additional eye complaints ENT: Reports system reviewed and no additional complaints, except as documented Cardiovascular: Cardiovascular: Reports no additional cardiovascular complaints Respiratory: Respiratory: Reports no additional respiratory complaints Gastrointestinal: Gastrointestinal: Reports no additional gastrointestinal complaints Genitourinary: Genitourinary: Reports no additional female genitourinary complaints Musculoskeletal: Musculoskeletal: Reports no additional musculoskeletal complaints Integumentary/Breasts: Skin/Breast: Reports system reviewed and no additional complaints, except as docu Neurologic: Reports system reviewed and no additional complaints, except as documented Psychiatric: Psychiatric: Reports no additional psychiatric complaints Exam Narrative: Exam Narrative: Well developed well-nourished in no acute distress Lungs clear bilaterally Heart regular without rub Abdomen bowel sounds positive soft nontender Extremities no edema Skin no rash or sq nodules Objective Data Vital Signs Vital Signs: Vital Signs - 24 hr 06/21/19 09:02 06/21/19 10:00 06/21/19 12:00 Temperature Pulse Rate 93 86 85 Respiratory Rate Blood Pressure Pulse Oximetry 95 06/21/19 13:23 06/21/19 14:00 06/21/19 16:00 Temperature 36.4 C L 36.4 C L Pulse Rate 77 89 90 Respiratory Rate 18 30 H Blood Pressure 125/54 L 132/49 L Pulse Oximetry 96 90 06/21/19 17:23 06/21/19 18:00
[2019-06-22] MEDS: FLUTICASONE PROPIONATE 0.05% NA SPR 16 GM BTL (*BKC) 1 SPRAY NASAL ×2 (08:41→21:30)
[2019-06-22] MEDS: PANTOPRAZOLE 40 MG TABLET PO ×2 (08:42→17:24)
[2019-06-22] MEDS: POTASSIUM CHLORIDE 20 MEQ PACKET (FOR LIQUID) 40 MEQ PO ×2 (08:42→17:24)
[2019-06-22] MEDS: MULTIVITAMINS THERAPEUTIC TAB (*BKC) 1 TABLET PO (08:42)
[2019-06-22] MEDS: NYSTATIN 100,000 UNITS/ML SUSP 5 ML ORAL.SUSP PO ×4 (08:42→21:30)
[2019-06-22] MEDS: carvediloL 3.125 MG TABLET PO ×2 (08:43→21:30)
[2019-06-22] MEDS: CHOLECALCIFEROL 1,000 UNIT TABLET 1000 UNITS PO (08:43)
[2019-06-22] MEDS: FUROSEMIDE INJ 40 MG/4 ML VIAL 20 MG IV PUSH ×2 (08:44→17:25)
[2019-06-22] MEDS: FERROUS SULFATE 324 MG TABLET PO (08:44)
[2019-06-22] MEDS: ASPIRIN 81 MG ENTERIC TABLET PO (08:44)
[2019-06-22] MEDS: LOSARTAN POTASSIUM 100 MG TABLET PO (08:44)
[2019-06-22] MEDS: FLUOXETINE HCL 20 MG CAP PO (08:44)
[2019-06-22] MEDS: ATORVASTATIN 40 MG TABLET PO (08:45)
--- NOTE | 2019-06-22 10:48 | PCOTNOTE ---
Patient OK to continue OT services per physician. Physical Therapy evaluation completed 06/21/19. Continue therapy per plan of care.
--- NOTE | 2019-06-22 10:51 | PM.PNCARD ---
Progress Note: A&P Assessment and Plan (1) Acute hypercapnic respiratory failure: Code(s): J96.02 - Acute respiratory failure with hypercapnia Status: Acute Assessment and Plan: History of COPD admitted with hypercarbic hypoxic respiratory failure, requiring BiPAP. (2) Elevated troponin: Code(s): R79.89 - Other specified abnormal findings of blood chemistry Status: Acute Assessment and Plan: Mildly elevated troponins on admission, min max 0.8. Not surprising in view of her respiratory failure and hypoxia superimposed on CAD. EKG personally reviewed from this morning reveals no ischemic changes. Continue efforts to reduce cardiac stress by treating hypoxia, HTN, COPD etc. TNG prn. (3) CAD (coronary artery disease): Qualifiers: Coronary Disease-Associated Artery/Lesion type: [place] artery [place] vs. transplanted heart: [place] heart Associated angina: without angina Qualified Code(s): I25.10 - Atherosclerotic heart disease of [place] coronary artery without angina pectoris Code(s): I25.10 - Atherosclerotic heart disease of [place] coronary artery without angina pectoris Status: Chronic Assessment and Plan: History of non-STEMI and OM stent 2014, EF 50-55% at that time (4) Hypertension: Qualifiers: Hypertension type: essential hypertension Qualified Code(s): I10 - Essential (primary) hypertension Code(s): I10 - Essential (primary) hypertension Status: Acute Assessment and Plan: Generally at goal. (5) Hypokalemia: Code(s): E87.6 - Hypokalemia Status: Acute Assessment and Plan: Management per hospitalist (6) Hyponatremia: Code(s): E87.1 - Hypo-osmolality and hyponatremia Status: Acute Assessment and Plan: Addressed by Nephrology (7) Fluid overload, unspecified: Code(s): E87.70 - Fluid overload, unspecified Status: Acute Assessment and Plan: Small bilateral effusions, not terribly volume overloaded however. Additional Plan No additional cardiac recommendations. Cardiology will sign off. Please do not hesitate to call if we can be of further assistance. Plan discussed with Dr. Razo 11:00 a.m. 06/22/2019 Subjective Date/time seen: 06/22/19 10:51 Interval history: Follow-up for: Elevated troponin, chest pain, history of coronary artery disease, hypertension, hypokalemia, hyponatremia, acute hypercapnic respiratory failure. Date of service: 06/22/2019 Subjective: Up in chair on high-flow oxygen. Difficulty with getting air in. Chest discomfort if gets anxious at the left sternal border 4th intercostal space. No chest discomfort at the time of our interview. No lightheadedness. Review of Systems Constitutional: Constitutional: Denies chills and Reports fatigue Eyes: Eyes: Denies blurry vision ENT: Reports Normal hearing present Cardiovascular: Cardiovascular: Denies chest pain, Denies leg edema, Denies lightheadedness and Reports dyspnea Respiratory: Respiratory: Reports cough and Reports dyspnea Gastrointestinal: Gastrointestinal: Denies abdominal pain, Denies nausea and Denies vomiting Genitourinary: Genitourinary: Denies hematuria Musculoskeletal: Musculoskeletal: Denies back pain Neurologic: Reports Normal hearing present, Denies dizziness and Reports weakness Psychiatric: Psychiatric: Reports anxiety Endocrine: Endocrine: Reports fatigue Hematologic/Lymphatic: Hematologic/Lymphatic: Denies easy bleeding Allergic/Immunologic: Allergic/Immunologic: Denies throat swelling Exam Const: General: cooperative and uncomfortable Orientation/consciousness: patient oriented x3 HENMT: General nose exam: no epistaxis Mouth: Yes moist mucous membranes Eyes: EOM: EOMs int
[2019-06-22] MEDS: POTASSIUM CHLORIDE 20 MEQ PACKET (FOR LIQUID) PO (10:54)
[2019-06-22 12:32] LABS: Blood Urea Nitrogen 37 mg/dL (7-17); Calcium 9.8 mg/dL (8.4-10.2); Carbon Dioxide 26 mmol/L (22-30); Chloride 88 mmol/L (98-107); Estimated CRCL calculation 31 ml/min; Estimated Glomerular Filt Rate 48; Glucose 145 mg/dL (65-105); Potassium 3.9 mmol/L (3.4-5.0); Sodium 126 mmol/L (137-145)
--- NOTE | 2019-06-22 16:49 | PM.IMPN ---
Progress Note: A&P Assessment and Plan (1) CAD (coronary artery disease): Qualifiers: Coronary Disease-Associated Artery/Lesion type: [place] artery [place] vs. transplanted heart: [place] heart Associated angina: without angina Qualified Code(s): I25.10 - Atherosclerotic heart disease of [place] coronary artery without angina pectoris Code(s): I25.10 - Atherosclerotic heart disease of [place] coronary artery without angina pectoris Status: Chronic Assessment and Plan: On metoprolol and statin and ASA (2) Anxiety: Code(s): F41.9 - Anxiety disorder, unspecified Status: Acute Assessment and Plan: Pt takes sleeping aid for insomnia (3) Hypokalemia: Code(s): E87.6 - Hypokalemia Status: Acute Assessment and Plan: Pt had potassium rider in ED, pt to have potassium supplements today, enourage diet and ensures. Hopeful discharge soon. (4) GERD (gastroesophageal reflux disease): Code(s): K21.9 - Gastro-esophageal reflux disease without esophagitis Status: Acute Assessment and Plan: Pt is on protonix and emetics for nausea and vomiting (5) Hypertension: Qualifiers: Hypertension type: essential hypertension Qualified Code(s): I10 - Essential (primary) hypertension Code(s): I10 - Essential (primary) hypertension Status: Acute Assessment and Plan: On metoprolol. losartan, Bp is stable (6) Acute exacerbation of chronic obstructive airways disease: Code(s): J44.1 - Chronic obstructive pulmonary disease with (acute) exacerbation Status: Acute Assessment and Plan: Pt on breathing treatments and oral doxycycline, CXr still showing atelectasis Sola Osborne is a 79 year old female pt lives in assisted living has been feeling short of breath and coughing alot. Pt has not been eating much. Found to have atelectasis on cxr and potassium levels is low as well as hyponatremia. Today the patient was quite hypoxic experiencing difficulty with breathing patient was given Lasix 40 mg IV Solu-Medrol 125 mg IV push ABG was done which showed the patient was hypoxic and BiPAP was placed discussed with residential plumber who also examined the patient and transfer the patient to IMU DC doxycycline started the patient on Rocephin and azithromycin will continue Solu-Medrol 60 mg every 6 hours and Lasix 40 mg q 6, ABG showed improvement in patient's pH elevated CO2 will continue to monitor patient overnight IMU and will use BiPAP as needed. on 06/20 patient complained of chest tropes were ordered and are elevated, patient was seen by Cardiology and does not suspect acute coronary syndrome most likely type 2 myocardial infarction due to exacerbation of COPD, today patient still requiring high-flow oxygen, will continue present management once patient's respiratory symptoms are stable will taper Solu-Medrol to prednisone will continue to monitor, today patient is more alert and, her spoke daughter later in the afternoon, will continue present management and reassess patient's oxygen requirement on Thursday and plan for possible discharge (7) Nasal congestion: Code(s): R09.81 - Nasal congestion Status: Acute Assessment and Plan: Pt started on flonase did better with her breathing (8) Hyponatremia: Code(s): E87.1 - Hypo-osmolality and hyponatremia Status: Acute Assessment and Plan: Patient with history of mild hyponatremia now exacerbated patient was seen by Dr. Tidwell and discussed will place the patient on fluid restriction and started the patient on Lasix will monitor (9) Acute hypercapnic respiratory failure: Code(s): J96.02 - Acute respiratory failure with hypercapnia Status: Acute Assessment and Plan: Most likely secondary to exacerbation of COPD patient is being treated and plan is above (10) Elevated troponin: Code(s): R79.89 - Other specified abnormal findings of blood
[2019-06-22 16:58] LABS: Sodium 128 mmol/L (137-145)
[2019-06-23] VITALS (24 sets, daily range): BP systolic 90–169; BP diastolic 40–94; PULSE 56–76; RESP 14–22; TEMP 35.6–36.4; O2SAT 92–100
--- NOTE | 2019-06-23 03:57 | PC.NURSE ---
Addendum entered by Rose Tellez RN 06/23/19 05:13: 89's family was who I meant to say, not this patient's family member Original Note: the 0000 dose of solu-medrol on 06/23/19 was not administered. There were multiple admissions that arrived on the floor as well as a situation with this patient's family member that MARU Escamilla is aware of. Too much time passed after dose was due so I had to skip this dose and I will resume with the 0600 dose.
[2019-06-23 06:01] LABS: Albumin Level 3.7 g/dL (3.5-5.1); Blood Urea Nitrogen 59 mg/dL (7-17); Calcium 9.5 mg/dL (8.4-10.2); Carbon Dioxide 23 mmol/L (22-30); Chloride 89 mmol/L (98-107); Estimated CRCL calculation 21 ml/min; Estimated Glomerular Filt Rate 31; Glucose 124 mg/dL (65-105); Potassium 4.2 mmol/L (3.4-5.0); Sodium 129 mmol/L (137-145)
[2019-06-23] MEDS: methylPREDNISolone SOD SUCC 125 MG VIAL 60 MG IV PUSH ×3 (06:33→18:35)
[2019-06-23] MEDS: CHOLECALCIFEROL 1,000 UNIT TABLET 1000 UNITS PO (10:16)
[2019-06-23] MEDS: PANTOPRAZOLE 40 MG TABLET PO ×2 (10:17→18:34)
[2019-06-23] MEDS: FLUOXETINE HCL 20 MG CAP PO (10:17)
[2019-06-23] MEDS: carvediloL 3.125 MG TABLET PO ×2 (10:17→20:31)
[2019-06-23] MEDS: NYSTATIN 100,000 UNITS/ML SUSP 5 ML ORAL.SUSP PO ×4 (10:17→20:32)
[2019-06-23] MEDS: LOSARTAN POTASSIUM 100 MG TABLET PO (10:17)
[2019-06-23] MEDS: ASPIRIN 81 MG ENTERIC TABLET PO (10:18)
[2019-06-23] MEDS: ATORVASTATIN 40 MG TABLET PO (10:18)
[2019-06-23] MEDS: FERROUS SULFATE 324 MG TABLET PO (10:18)
[2019-06-23] MEDS: MULTIVITAMINS THERAPEUTIC TAB (*BKC) 1 TABLET PO (10:18)
[2019-06-23] MEDS: FUROSEMIDE INJ 40 MG/4 ML VIAL 20 MG IV PUSH ×2 (10:18→18:34)
[2019-06-23] MEDS: POTASSIUM CHLORIDE 20 MEQ PACKET (FOR LIQUID) 40 MEQ PO ×2 (10:19→18:35)
[2019-06-23] MEDS: FLUTICASONE PROPIONATE 0.05% NA SPR 16 GM BTL (*BKC) 1 SPRAY NASAL ×2 (10:19→20:32)
--- NOTE | 2019-06-23 11:45 | P.PNNP_ITS ---
Progress Note: A&P Assessment and Plan (1) Hyponatremia: Code(s): E87.1 - Hypo-osmolality and hyponatremia Status: Acute Assessment and Plan: * has chronic hyponatremia at baseline that dates back to 2014 if not longer * baseline sodium runs ~ 129 - 132mmol/L * etiology of chronic hyponatremia likely due to: - HCTZ use - Paxil (SSRI) use - known history of COPD * her acute hyponatremia on admission is more likely due to acute infection and possible use of IV normal saline * treated with a combo of fluid restriction and 3% saline (due to confusion) with appropriate incrementation without overcorrection * sodium stable if not stable (2) JARRELL (acute kidney injury): Code(s): N17.9 - Acute kidney failure, unspecified Status: Acute Assessment and Plan: * as noted by elevated creatinine this AM * due to diuretics? * follow trend for now (3) Acute exacerbation of chronic obstructive airways disease: Code(s): J44.1 - Chronic obstructive pulmonary disease with (acute) exacerbation Status: Acute Assessment and Plan: * continue current therapy * wean O2 as tolerated (4) Hypertension: Qualifiers: Hypertension type: essential hypertension Qualified Code(s): I10 - Es sential (primary) hypertension Code(s): I10 - Essential (primary) hypertension Status: Acute Assessment and Plan: * reasonable control * continue current medications (5) Fluid overload, unspecified: Code(s): E87.70 - Fluid overload, unspecified Status: Acute Assessment and Plan: * on lasix bid * in negative fluid balance * follow sodium with diuretic use Subjective Date/time seen: 06/23/19 11:45 Patient's mental status significantly better since admission; no new issues or problems to report; still requiring high oxygen requirements at the time of my visit; no acute distress noted. Exam Narrative: Exam Narrative: General: WD/WN female in NAD Heart: normal S1 and S2; no rub Lungs: coarse breath sounds Abdomen: soft, nontender, nondistended, positive bowel sounds Extremities: no cyanosis or clubbing; no edema Skin: warm and dry Objective Data Vital Signs Vital Signs: Vital Signs Temp Pulse Resp BP Pulse Ox 06/23/19 10:22 100 06/23/19 10:17 69 06/23/19 10:10 96 06/23/19 09:12 62 18 98 06/23/19 08:38 35.6 C L 59 L 14 151/56 H 100 06/23/19 06:00 61 06/23/19 05:15 36.2 C L 58 L 14 115/40 L 98 06/23/19 04:00 76 06/23/19 02:00 73 06/23/19 01:32 36.4 C L 68 22 H 126/44 L 98 06/23/19 00:00 62 06/22/19 22:00 78 06/22/19 21:54 93 06/22/19 21:30 81 06/22/19 20:00 80 100 06/22/19 19:39 36.4 C L 74 22 H 137/59 L 93 06/22/19 18:00 83 06/22/19 16:00 36.6 C 81 24 H 98/48 L 93 06/22/19 14:00 97 06/22/19 12:00 36.4 C 75 22 H 151/46 H 92 Intake/Output Intake/Output: Intake & Output 06/20/19 06/21/19 06/22/19 06/23/19 23:59 23:59 23:59 23:59 Intake Total 1020 905 820 100 Output Total 3500 1550 203 250 Ajttcen -1530 -645 -130 -150 Meds/Results Medications: Active Medications
--- NOTE | 2019-06-23 11:45 | PM.PNNEP ---
Progress Note: A&P Assessment and Plan (1) Hyponatremia: Code(s): E87.1 - Hypo-osmolality and hyponatremia Status: Acute Assessment and Plan: has chronic hyponatremia at baseline that dates back to 2014 if not longer baseline sodium runs ~ 129 - 132mmol/L etiology of chronic hyponatremia likely due to: - HCTZ use - Paxil (SSRI) use - known history of COPD her acute hyponatremia on admission is more likely due to acute infection and possible use of IV normal saline treated with a combo of fluid restriction and 3% saline (due to confusion) with appropriate incrementation without overcorrection sodium stable if not stable (2) JARRELL (acute kidney injury): Code(s): N17.9 - Acute kidney failure, unspecified Status: Acute Assessment and Plan: as noted by elevated creatinine this AM due to diuretics? follow trend for now (3) Acute exacerbation of chronic obstructive airways disease: Code(s): J44.1 - Chronic obstructive pulmonary disease with (acute) exacerbation Status: Acute Assessment and Plan: continue current therapy wean O2 as tolerated (4) Hypertension: Qualifiers: Hypertension type: essential hypertension Qualified Code(s): I10 - Essential (primary) hypertension Code(s): I10 - Essential (primary) hypertension Status: Acute Assessment and Plan: reasonable control continue current medications (5) Fluid overload, unspecified: Code(s): E87.70 - Fluid overload, unspecified Status: Acute Assessment and Plan: on lasix bid in negative fluid balance follow sodium with diuretic use Subjective Date/time seen: 06/23/19 11:45 Patient's mental status significantly better since admission; no new issues or problems to report; still requiring high oxygen requirements at the time of my visit; no acute distress noted. Exam Narrative: Exam Narrative: General: WD/WN female in NAD Heart: normal S1 and S2; no rub Lungs: coarse breath sounds Abdomen: soft, nontender, nondistended, positive bowel sounds Extremities: no cyanosis or clubbing; no edema Skin: warm and dry Objective Data Vital Signs Vital Signs: Vital Signs Temp Pulse Resp BP Pulse Ox 06/23/19 10:22 100 06/23/19 10:17 69 06/23/19 10:10 96 06/23/19 09:12 62 18 98 06/23/19 08:38 35.6 C L 59 L 14 151/56 H 100 06/23/19 06:00 61 06/23/19 05:15 36.2 C L 58 L 14 115/40 L 98 06/23/19 04:00 76 06/23/19 02:00 73 06/23/19 01:32 36.4 C L 68 22 H 126/44 L 98 06/23/19 00:00 62 06/22/19 22:00 78 06/22/19 21:54 93 06/22/19 21:30 81 06/22/19 20:00 80 100 06/22/19 19:39 36.4 C L 74 22 H 137/59 L 93 06/22/19 18:00 83 06/22/19 16:00 36.6 C 81 24 H 98/48 L 93 06/22/19 14:00 97 06/22/19 12:00 36.4 C 75 22 H 151/46 H 92 Intake/Output Intake/Output: Intake & Output 06/20/19 06/21/19 06/22/19 06/23/19 23:59 23:59 23:59 23:59 Intake Total 1020 905 820 100 Output Total 3500 1550 950 250 Balance -2480 -645 -130 -150 Meds/Results Medications: Active Medications Generic Name Dose Route Start Last Admin Trade Name Jayyq PRN Reason Stop Dose Admin Acetaminophen 650 mg 06/17/19 10:57 06/17/19 17:11 Tylenol Tablet PO 650 mg Q4H PRN Administration Mild Pain (1-3) or Fever Albuterol 5 mg 06/20/19 09:29 06/20/19 12:55 Albuterol Sulf Neb 2.5mg/0.5ml INHALATION 5 mg Q6HRT PRN Administration Shortness Of Breath Aspirin 81 mg 06/18/19 09:00 06/23/19 10:18 Aspirin Ec PO 81 mg DAILY KAI Administration Atorvastatin Calcium 40 mg 06/18/19 09:00 06/23/19 10:18 Lipitor PO 40 mg DAILY KAI Administration Benzonatate 200 mg 06/20/19 11:41 06/20/19 12:06 Tessalon Perles PO 200 mg Q8HR PRN Administration Cough Carvedilol 3.125 mg 06/18/19 09:00 0
--- NOTE | 2019-06-23 16:15 | PM.IMPN ---
Progress Note: A&P Assessment and Plan (1) CAD (coronary artery disease): Qualifiers: Coronary Disease-Associated Artery/Lesion type: [place] artery [place] vs. transplanted heart: [place]maq heart Associated angina: without angina Qualified Code(s): I25.10 - Atherosclerotic heart disease of [place]kmaq coronary artery without angina pectoris Code(s): I25.10 - Atherosclerotic heart disease of [place] coronary artery without angina pectoris Status: Chronic Assessment and Plan: On metoprolol and statin and ASA (2) Anxiety: Code(s): F41.9 - Anxiety disorder, unspecified Status: Acute Assessment and Plan: Pt takes sleeping aid for insomnia (3) Hypokalemia: Code(s): E87.6 - Hypokalemia Status: Acute Assessment and Plan: Pt had potassium rider in ED, pt to have potassium supplements today, enourage diet and ensures. Hopeful discharge soon. (4) GERD (gastroesophageal reflux disease): Code(s): K21.9 - Gastro-esophageal reflux disease without esophagitis Status: Acute Assessment and Plan: Pt is on protonix and emetics for nausea and vomiting (5) Hypertension: Qualifiers: Hypertension type: essential hypertension Qualified Code(s): I10 - Essential (primary) hypertension Code(s): I10 - Essential (primary) hypertension Status: Acute Assessment and Plan: On metoprolol. losartan, Bp is stable (6) Acute exacerbation of chronic obstructive airways disease: Code(s): J44.1 - Chronic obstructive pulmonary disease with (acute) exacerbation Status: Acute Assessment and Plan: 06/23/19 16:15 Pt on breathing treatments and oral doxycycline, CXr still showing atelectasis Sola Osborne is a 79 year old female pt lives in assisted living has been feeling short of breath and coughing alot. Pt has not been eating much. Found to have atelectasis on cxr and potassium levels is low as well as hyponatremia. Today the patient was quite hypoxic experiencing difficulty with breathing patient was given Lasix 40 mg IV Solu-Medrol 125 mg IV push ABG was done which showed the patient was hypoxic and BiPAP was placed discussed with utility supervisor boat and plant who also examined the patient and transfer the patient to IMU DC doxycycline started the patient on Rocephin and azithromycin will continue Solu-Medrol 60 mg every 6 hours and Lasix 40 mg q 6, ABG showed improvement in patient's pH elevated CO2 will continue to monitor patient overnight IMU and will use BiPAP as needed. on 06/20 patient complained of chest tropes were ordered and are elevated, patient was seen by Cardiology and does not suspect acute coronary syndrome most likely type 2 myocardial infarction due to exacerbation of COPD, today patient still requiring high-flow oxygen, will consult social media marketer further recommendation, spoke with family patient is requiring high concentration of oxygen may need more help and would not be able to return to the assisted living and retirement may be a possibility (7) Nasal congestion: Code(s): R09.81 - Nasal congestion Status: Acute Assessment and Plan: Pt started on flonase did better with her breathing (8) Hyponatremia: Code(s): E87.1 - Hypo-osmolality and hyponatremia Status: Acute Assessment and Plan: Patient with history of mild hyponatremia now exacerbated patient was seen by Dr. Tidwell and discussed will place the patient on fluid restriction and started the patient on Lasix will monitor (9) Acute hypercapnic respiratory failure: Code(s): J96.02 - Acute respiratory failure with hypercapnia Status: Acute Assessment and Plan: Most likely secondary to exacerbation of COPD patient is being treated and plan is above (10) Elevated troponin: Code(s): R79.89 - Other specified abnormal findings of blood chemistry Status: Acute Assessment and Plan: Patient with complaint of c
[2019-06-24] VITALS (16 sets, daily range): BP systolic 95–138; BP diastolic 44–59; PULSE 57–103; RESP 18–22; TEMP 36.1–36.7; O2SAT 16–98; BMI 19.3
[2019-06-24] MEDS: methylPREDNISolone SOD SUCC 125 MG VIAL 60 MG IV PUSH ×4 (02:10→17:19)
[2019-06-24 04:22] LABS: Osmolality, Urine 345 mOsm/kg (50-1200)
[2019-06-24 05:51] LABS: Blood Urea Nitrogen 66 mg/dL (7-17); Calcium 9.8 mg/dL (8.4-10.2); Carbon Dioxide 21 mmol/L (22-30); Chloride 98 mmol/L (98-107); Estimated CRCL calculation 26 ml/min; Estimated Glomerular Filt Rate 39; Glucose 118 mg/dL (65-105); Sodium 130 mmol/L (137-145)
[2019-06-24] MEDS: ATORVASTATIN 40 MG TABLET PO (08:47)
[2019-06-24] MEDS: FLUTICASONE PROPIONATE 0.05% NA SPR 16 GM BTL (*BKC) 1 SPRAY NASAL ×2 (08:47→21:33)
[2019-06-24] MEDS: FERROUS SULFATE 324 MG TABLET PO (08:48)
[2019-06-24] MEDS: CHOLECALCIFEROL 1,000 UNIT TABLET 1000 UNITS PO (08:48)
[2019-06-24] MEDS: ASPIRIN 81 MG ENTERIC TABLET PO (08:48)
[2019-06-24] MEDS: FUROSEMIDE INJ 40 MG/4 ML VIAL 20 MG IV PUSH ×2 (08:48→17:19)
[2019-06-24] MEDS: FLUOXETINE HCL 20 MG CAP PO (08:48)
[2019-06-24] MEDS: carvediloL 3.125 MG TABLET PO ×2 (08:48→21:33)
[2019-06-24] MEDS: LOSARTAN POTASSIUM 100 MG TABLET PO (08:48)
[2019-06-24] MEDS: PANTOPRAZOLE 40 MG TABLET PO ×2 (08:49→17:19)
[2019-06-24] MEDS: MULTIVITAMINS THERAPEUTIC TAB (*BKC) 1 TABLET PO (08:49)
[2019-06-24] MEDS: NYSTATIN 100,000 UNITS/ML SUSP 5 ML ORAL.SUSP PO ×4 (08:49→21:33)
[2019-06-24 09:44] LABS: NT Pro B Type Natriuretic Pept 785 PG/ML (5-100)
--- NOTE | 2019-06-24 15:18 | PM.PNNEP ---
Progress Note: A&P Assessment and Plan (1) Hyponatremia: Code(s): E87.1 - Hypo-osmolality and hyponatremia Status: Acute Assessment and Plan: has chronic hyponatremia at baseline that dates back to 2014 if not longer baseline sodium runs ~ 129 - 132mmol/L etiology of chronic hyponatremia likely due to: - HCTZ use - Paxil (SSRI) use - known history of COPD her acute hyponatremia on admission is more likely due to acute infection and possible use of IV normal saline treated with a combo of fluid restriction and 3% saline (due to confusion) with appropriate incrementation without overcorrection sodium stable if not improving (2) JARRELL (acute kidney injury): Code(s): N17.9 - Acute kidney failure, unspecified Status: Acute Assessment and Plan: creatinine better today in comparison to yesterday due to diuretics? -- consider switching to oral diuretics.... follow trend for now (3) Acute exacerbation of chronic obstructive airways disease: Code(s): J44.1 - Chronic obstructive pulmonary disease with (acute) exacerbation Status: Acute Assessment and Plan: continue current therapy wean O2 as tolerated (4) Hypertension: Qualifiers: Hypertension type: essential hypertension Qualified Code(s): I10 - Essential (primary) hypertension Code(s): I10 - Essential (primary) hypertension Status: Acute Assessment and Plan: reasonable control continue current medications (5) Fluid overload, unspecified: Code(s): E87.70 - Fluid overload, unspecified Status: Acute Assessment and Plan: on lasix bid in negative fluid balance follow sodium with diuretic use Subjective Date/time seen: 06/24/19 15:18 Overall, continues to make slow and steady improvement; states that she does feel better but still requiring significant oxygen requirements but breathing/respiratory status seems stable. Exam Narrative: Exam Narrative: General: WD/WN female in NAD Heart: normal S1 and S2; no rub Lungs: coarse breath sounds Abdomen: soft, nontender, nondistended, positive bowel sounds Extremities: no cyanosis or clubbing; no edema Skin: warm and dry Objective Data Vital Signs Vital Signs: Vital Signs Temp Pulse Resp BP Pulse Ox 06/24/19 14:00 84 06/24/19 12:00 36.7 C 96 18 120/59 L 96 06/24/19 10:02 91 06/24/19 10:00 84 06/24/19 08:48 71 06/24/19 08:00 36.2 C L 60 18 127/50 L 98 06/24/19 06:00 60 06/24/19 04:00 36.1 C L 61 95/44 L 16 L 06/24/19 02:00 60 06/24/19 00:00 36.3 C L 64 22 H 133/45 L 94 06/23/19 22:00 67 06/23/19 20:31 62 06/23/19 20:20 93 06/23/19 20:00 65 06/23/19 19:45 36.2 C L 62 20 138/51 L 92 06/23/19 18:33 36.1 C L 62 18 90/42 L 94 06/23/19 18:00 72 06/23/19 16:00 68 Intake/Output Intake/Output: Intake & Output 06/21/19 06/22/19 06/23/19 06/24/19 23:59 23:59 23:59 23:59 Intake Total 905 820 510 720 Output Total 6261 062 0928 750 [facility] -645 -130 -490 -30 Meds/Results Medications: Active Medications Generic Name Dose Route Start Last Admin Trade Name Freq PRN Reason Stop Dose Admin Acetaminophen 650 mg 06/17/19 10:57 06/17/19 17:11 Tylenol Tablet PO 650 mg Q4H PRN Administration Mild Pain (1-3) or Fever Albuterol 5 mg 06/20/19 09:29 06/20/19 12:55 Albuterol Sulf Neb 2.5mg/0.5ml INHALATION 5 mg Q6HRT PRN Administration Shortness Of Breath Aspirin 81 mg 06/18/19 09:00 06/24/19 08:48 Aspirin Ec PO 81 mg DAILY KAI Administration Atorvastatin Calcium 40 mg 06/18/19 09:00 06/24/19 08:47 Lipitor PO 40 mg DAILY KAI Administration Benzonatate 200 mg 06/20/19 11:41 06/20/19 12:06 Tessalon Perles PO 200 mg Q8HR PRN Administration Cough Carvedilol 3.125 mg 06/18/19 09:00 06/24/19 08:48 Co
--- NOTE | 2019-06-24 15:18 | P.PNNP_ITS ---
Progress Note: A&P Assessment and Plan (1) Hyponatremia: Code(s): E87.1 - Hypo-osmolality and hyponatremia Status: Acute Assessment and Plan: * has chronic hyponatremia at baseline that dates back to 2014 if not longer * baseline sodium runs ~ 129 - 132mmol/L * etiology of chronic hyponatremia likely due to: - HCTZ use - Paxil (SSRI) use - known history of COPD * her acute hyponatremia on admission is more likely due to acute infection and possible use of IV normal saline * treated with a combo of fluid restriction and 3% saline (due to confusion) with appropriate incrementation without overcorrection * sodium stable if not improving (2) JARRELL (acute kidney injury): Code(s): N17.9 - Acute kidney failure, unspecified Status: Acute Assessment and Plan: * creatinine better today in comparison to yesterday * due to diuretics? -- consider switching to oral diuretics.... * follow trend for now (3) Acute exacerbation of chronic obstructive airways disease: Code(s): J44.1 - Chronic obstructive pulmonary disease with (acute) exacerbation Status: Acute Assessment and Plan: * continue current therapy * wean O2 as tolerated (4) Hypertension: Qualifiers: Hypertension type: essential hypertension Qualified Code(s): I10 - Essential (primary) hypertension Code(s): I10 - Essential (primary) hypertension Status: Acute Assessment and Plan: * reasonable control * continue current medications (5) Fluid overload, unspecified: Code(s): E87.70 - Fluid overload, unspecified Status: Acute Assessment and Plan: * on lasix bid * in negative fluid balance * follow sodium with diuretic use Subjective Date/time seen: 06/24/19 15:18 Overall, continues to make slow and steady improvement; states that she does fe el better but still requiring significant oxygen requirements but breathing/respiratory status seems stable. Exam Narrative: Exam Narrative: General: WD/WN female in NAD Heart: normal S1 and S2; no rub Lungs: coarse breath sounds Abdomen: soft, nontender, nondistended, positive bowel sounds Extremities: no cyanosis or clubbing; no edema Skin: warm and dry Objective Data Vital Signs Vital Signs: Vital Signs Temp Pulse Resp BP Pulse Ox 06/24/19 14:00 84 06/24/19 12:00 36.7 C 96 18 120/59 L 96 06/24/19 10:02 91 06/24/19 10:00 84 06/24/19 08:48 71 06/24/19 08:00 36.2 C L 60 18 127/50 L 98 06/24/19 06:00 60 06/24/19 04:00 36.1 C L 61 95/44 L 16 L 06/24/19 02:00 60 06/24/19 00:00 36.3 C L 64 22 H 133/45 L 94 06/23/19 22:00 67 06/23/19 20:31 62 06/23/19 20:20 93 06/23/19 20:00 65 06/23/19 19:45 36.2 C L 62 20 138/51 L 92 06/23/19 18:33 36.1 C L 62 18 90/42 L 94 06/23/19 18:00 72 06/23/19 16:00 68 Intake/Output Intake/Output: Intake & Output 06/21/19 06/22/19 06/23/19 06/24/19 23:59 23:59 23:59 23:59 Intake Total 905 820 510 720 Output Total 6989 839 4903 750 Balance -645 -130 -490 -30 Meds/Results Medications: Active Medications Generic Name Dose Route St
--- NOTE | 2019-06-24 16:37 | PM.CNPUL ---
Assessment and Plan Assessment and plan (1) COPD exacerbation: Code(s): J44.1 - Chronic obstructive pulmonary disease with (acute) exacerbation Status: Acute Assessment and Plan: - Albuterol/Ipratropium 2.5 mg/0.5 mg Q6h - Pulmicort 0.5 mg Nebulized bid - no need for antibiotics in my opinion as a clear bacterial pneumonia is not present - Incentive Spirometer Q1-2h while awake - PT/OT and encourage mobilzation (2) Viral syndrome: Code(s): B34.9 - Viral infection, unspecified Status: Acute History of Present Illness History of Present Illness Consult date: 06/24/19 Chief complaint: hyperkalemia Narrative: 79 y/o female who presents with increased dyspnea and cough after being exposed to residents at her assisted living quaters who had viral like syndrome. She denies fever, chills, night sweats, sore throat or diarrhea. She feels no improvement since admssion. CXR show bilateral plueral effusions. A CT chest shows moderate lef pleural effusion with small right effusion with emphysematous changes. There is significant atelectasis of the LLL. Review of Systems Review of Systems: All systems reviewed & are unremarkable except as noted in HPI and below PMFSH Past Medical History Medical History Anemia Distant history of anemia on iron supplements Anxiety Arthritis Asthma Back pain CAD (coronary artery disease) Angioplasty in the early , drug eluting stent to the proximal 1st obtuse marginal branch of the circumflex September 2014 COPD (chronic obstructive pulmonary disease) PFTs August of 2018 demonstrated moderate obstructive airway disease with severe small airway disease with no bronchodilator response and significant air trapping Depression Diastolic dysfunction Noted on cardiac catheterization from September 2014, with echocardiogram from September 2014 demonstrating moderate LVH with sigmoid hypertrophy of the septum, increased left heart filling pressures, EF of 70% with anterior lateral segment being hypokinetic Eczema Fluid overload, unspecified GERD (gastroesophageal reflux disease) With symptoms of dysphagia resulting in an EGD by Dr. Byrd September 2018 with gastric polypectomy Heart attack Non STEMI September 2014 with stent placed in the obvious marginal branch of the circumflex Hemorrhoids Pneumonia UTI (urinary tract infection) Surgical History Surgical History H/O hemorrhoidectomy History of bilateral cataract extraction Hx of cardiac catheterization with stent placement Hx of cataract surgery Hx of left knee surgery Hx of tubal ligation Tubal ligation status Family History Family History Sibling Diabetes mellitus Coronary artery disease One brother of complications of diabetes and had a history of heart disease. Her younger brother also had a history of a CABG. Father Lung cancer Mother Coronary artery disease She had an [place] in her 70s. Son Quadriplegia, acute traumatic 1 son who is quadriplegic due to trauma. She also has 3 other children. Social History Social History (Updated 06/21/19 @ 19:06 by My Tierney MD) Social History: Primary care physician: Ha CASTANEDA Code status: DNI per patient request Smoking status: Never smoker Second hand tobacco smoke exposure: Yes Alcohol intake: never Substance use: never Substance use type: does not use Additional living arrangements comments: Patient resides at [facility]. She is , and has 4 children. One of her children's quadriplegic due to a car accident. She would like her daughter Coleen Cormier and her other daughter Melida Gusman to be her surrogate decision makers. 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 Gender identit
--- NOTE | 2019-06-24 18:13 | PM.IMPN ---
Progress Note: A&P Assessment and Plan (1) CAD (coronary artery disease): Qualifiers: Coronary Disease-Associated Artery/Lesion type: [place] artery [place] vs. transplanted heart: [place] heart Associated angina: without angina Qualified Code(s): I25.10 - Atherosclerotic heart disease of [place] coronary artery without angina pectoris Code(s): I25.10 - Atherosclerotic heart disease of [place] coronary artery without angina pectoris Status: Chronic Assessment and Plan: On metoprolol and statin and ASA (2) Anxiety: Code(s): F41.9 - Anxiety disorder, unspecified Status: Acute Assessment and Plan: Pt takes sleeping aid for insomnia (3) Hypokalemia: Code(s): E87.6 - Hypokalemia Status: Acute Assessment and Plan: Pt had potassium rider in ED, pt to have potassium supplements today, enourage diet and ensures. Hopeful discharge soon. (4) GERD (gastroesophageal reflux disease): Code(s): K21.9 - Gastro-esophageal reflux disease without esophagitis Status: Acute Assessment and Plan: Pt is on protonix and emetics for nausea and vomiting (5) Hypertension: Qualifiers: Hypertension type: essential hypertension Qualified Code(s): I10 - Essential (primary) hypertension Code(s): I10 - Essential (primary) hypertension Status: Acute Assessment and Plan: On metoprolol. losartan, Bp is stable (6) Acute exacerbation of chronic obstructive airways disease: Code(s): J44.1 - Chronic obstructive pulmonary disease with (acute) exacerbation Status: Acute Assessment and Plan: 06/24/19 18:13 Pt on breathing treatments and oral doxycycline, CXr still showing atelectasis Sola Osborne is a 79 year old female pt lives in assisted living has been feeling short of breath and coughing alot. Pt has not been eating much. Found to have atelectasis on cxr and potassium levels is low as well as hyponatremia. Today the patient was quite hypoxic experiencing difficulty with breathing patient was given Lasix 40 mg IV Solu-Medrol 125 mg IV push ABG was done which showed the patient was hypoxic and BiPAP was placed discussed with office machines teacher who also examined the patient and transfer the patient to IMU DC doxycycline started the patient on Rocephin and azithromycin will continue Solu-Medrol 60 mg every 6 hours and Lasix 40 mg q 6, ABG showed improvement in patient's pH elevated CO2 will continue to monitor patient overnight IMU and will use BiPAP as needed. on 06/20 patient complained of chest tropes were ordered and are elevated, patient was seen by Cardiology and does not suspect acute coronary syndrome most likely type 2 myocardial infarction due to exacerbation of COPD, today patient still requiring high-flow oxygen, today patient is feeling much better of high-flow oxygen and on nasal cannula sitting in the chair, will consult leather case finisher further recommendation, discussed with leather case finisher CT scan of the chest was done which shows some atelectasis, and severe COPD recommended continue present management and taper the Solu-Medrol in 2 days, will have a PT OT evaluate the patient patient will benefit from acute rehab (7) Nasal congestion: Code(s): R09.81 - Nasal congestion Status: Acute Assessment and Plan: Pt started on flonase did better with her breathing (8) Hyponatremia: Code(s): E87.1 - Hypo-osmolality and hyponatremia Status: Acute Assessment and Plan: Patient with history of mild hyponatremia now exacerbated patient was seen by Dr. Tidwell and discussed will place the patient on fluid restriction and started the patient on Lasix will monitor (9) Acute hypercapnic respiratory failure: Code(s): J96.02 - Acute respiratory failure with hypercapnia Status: Acute Assessment and Plan: Most likely secondary to exacerbation of COPD patient is being treated and plan is above (1
[2019-06-25] VITALS (24 sets, daily range): BP systolic 118–174; BP diastolic 37–71; PULSE 58–94; RESP 18–28; TEMP 36.1–36.7; O2SAT 85–99
[2019-06-25] MEDS: methylPREDNISolone SOD SUCC 125 MG VIAL 60 MG IV PUSH ×2 (00:26→05:14)
[2019-06-25] MEDS: BENZONATATE 100 MG CAPSULE 200 MG PO (05:15)
[2019-06-25] MEDS: IPRATROPIUM BR 0.02% INH SOLN 0.5 MG/2.5 ML VIAL INHALATION ×4 (05:21→20:01)
[2019-06-25] MEDS: ALBUTEROL SULFATE NEB 2.5 MG/0.5 ML INH 5 MG INHALATION (05:22)
--- NOTE | 2019-06-25 09:16 | PM.PNPUL ---
Progress Note: A&P Assessment and Plan (1) Viral syndrome: Code(s): B34.9 - Viral infection, unspecified Status: Acute (2) COPD exacerbation: Code(s): J44.1 - Chronic obstructive pulmonary disease with (acute) exacerbation Status: Acute (3) Acute hypoxemic respiratory failure: Code(s): J96.01 - Acute respiratory failure with hypoxia Status: Acute Additional Plan - changed albuterol/Atroven to 2.5/0.5 mg Q6h scheduled - STAT ABG, portable CXR ordered this morning - Morphine 2 mg IV push to help with dyspnea and suppress cough - Azithromycin 500 mg IV daily add to Ceftriaxone - Tussionex 5 ml PO Q12h PRN cough - if dyspnea does not improve she may need to be started on BIPAP therpay and possibly move to ICU for closer monitoring Subjective Date/time seen: 06/25/19 09:16 Interval history: Pt had increased coughing overnight which lead to desaturation and step up on oxygen therapy to high flow oxygen. Cough is non productive. She feels no better this morning. CT chest shows mostly LLL atelectasis but no significant pneumonic infiltrates. Review of Systems Review of Systems: All systems reviewed & are unremarkable except as noted in HPI and below Exam Const: General: comfortable and no acute distress HENMT: Mouth: Yes moist mucous membranes Neck: Neck: supple and no JVD Resp: Auscultation: diminished lung sounds (at bilateral bases ) Cardio: Rate: regular rate Rhythm: regular rhythm Heart sounds: no murmurs GI: GI Palp: Yes Soft to palpation Auscultation: normal bowel sounds Skin: General skin exam: normal color and no rashes or lesions noted Extrem: General: no edema and no pedal edema Objective Data Vital Signs Vital Signs: Vital Signs - 24 hr 06/24/19 10:00 06/24/19 10:02 06/24/19 12:00 Temperature 36.7 C Pulse Rate 84 96 Respiratory Rate 18 Blood Pressure 120/59 L Pulse Oximetry 91 96 06/24/19 14:00 06/24/19 16:00 06/24/19 18:00 Temperature 36.3 C L Pulse Rate 84 63 79 Respiratory Rate 18 Blood Pressure 118/51 L Pulse Oximetry 96 06/24/19 20:00 06/24/19 20:59 06/24/19 21:33 Temperature 36.6 C Pulse Rate 74 80 Respiratory Rate 18 Blood Pressure 138/55 L Pulse Oximetry 94 93 06/24/19 23:48 06/25/19 01:17 06/25/19 04:00 Temperature 36.2 C L 36.7 C Pulse Rate 61 58 L 63 Respiratory Rate 20 18 Blood Pressure 130/54 L 126/37 L Pulse Oximetry 96 95 06/25/19 05:22 06/25/19 05:36 06/25/19 08:00 Temperature 36.2 C L Pulse Rate 81 84 94 Respiratory Rate 24 H 24 H 28 H Blood Pressure 148/64 H Pulse Oximetry 85 L 90 92 06/25/19 08:34 Temperature Pulse Rate Respiratory Rate Blood Pressure Pulse Oximetry 92 Intake/Output Intake/Output: Intake & Output 06/22/19 06/23/19 06/24/19 06/25/19 23:59 23:59 23:59 23:59 Intake Total 409 061 0388 100 Output Total 950 1000 1675 725 [place] -130 -490 -425 -625 Meds/Results Medications: Active Medications Generic Name Dose Route Start Last Admin Trade Name Freq PRN Reason Stop Dose Admin Acetaminophen 650 mg 06/17/19 10:57 06/17/19 17:11 Tylenol Tablet PO 650 mg Q4H PRN Administration Mild Pain (1-3) or Fever Albuterol 2.5 mg 06/25/19 09:20 Albuterol Sulf Neb 2.5mg/0.5ml INHALATION Q6HRT [facility] Aspirin 81 mg 06/18/19 09:00 06/24/19 08:48 Aspirin Ec PO 81 mg DAILY KAI Administration Atorvastatin Calcium 40 mg 06/18/19 09:00 06/24/19 08:47 Lipitor PO 40 mg DAILY KAI Administration Benzonatate 200 mg 06/20/19 11:41 06/25/19 05:15 Tessalon Perles PO 200 mg Q8HR PRN Administration Cough Carvedilol 3.125 mg 06/18/19 09:00 06/24/19 21:33 Coreg PO 3.125 mg Q12HR KAI Administration Chlorphenir/Hydrocodone Polistirex 5 ml 06/25/19 09:10 Tussionex PO Q12H PRN Cough Ferrous Sulfate 324 mg 06/18/19 09:00 06/24/19 08:48 Ferrous Sulfate PO 324 mg D
[2019-06-25 09:38] LABS: Alveolar/Arterial O2 Gradient 286.4 mmHg; Base Excess ABG 1.3 mEq/l (+/-2.0); Fractional Inspired Oxygen 50 %; HCO3 ABG 22.3 mEq/l (22.0-26.0); Oxyhemoglobin 79.3 % THb (90.0-100.0); PCO2 ABG 26.8 mmHg (35.0-45.0); Total Hemoglobin 15.3 g/dL (12.0-18.0)
[2019-06-25 09:40] LABS: pH ABG 7.539 (7.350-7.450)
[2019-06-25 09:41] LABS: Oxygen Saturation ABG 82.5 % (95.0-100.0)
[2019-06-25 09:42] LABS: Device HIGH FLOW THERAPY; Site Drawn RIGHT BRACHIAL
[2019-06-25] MEDS: ALBUTEROL SULFATE NEB 2.5 MG/0.5 ML INH INHALATION ×3 (09:52→20:02)
[2019-06-25 10:00] LABS: Blood Urea Nitrogen 63 mg/dL (7-17); Calcium 10.5 mg/dL (8.4-10.2); Carbon Dioxide 24 mmol/L (22-30); Chloride 96 mmol/L (98-107); Estimated CRCL calculation 27 ml/min; Estimated Glomerular Filt Rate 43; Glucose 143 mg/dL (65-105); Potassium 4.2 mmol/L (3.4-5.0); Sodium 131 mmol/L (137-145)
[2019-06-25] MEDS: FUROSEMIDE INJ 40 MG/4 ML VIAL 20 MG IV PUSH (10:40)
[2019-06-25] MEDS: MORPHINE SULFATE 2 MG/ML INJ IV PUSH (10:40)
[2019-06-25] MEDS: FLUOXETINE HCL 20 MG CAP PO (10:41)
[2019-06-25] MEDS: PANTOPRAZOLE 40 MG TABLET PO ×2 (11:43→18:14)
[2019-06-25] MEDS: ASPIRIN 81 MG ENTERIC TABLET PO (11:44)
[2019-06-25] MEDS: FERROUS SULFATE 324 MG TABLET PO (11:44)
[2019-06-25] MEDS: ATORVASTATIN 40 MG TABLET PO (11:44)
[2019-06-25] MEDS: LOSARTAN POTASSIUM 100 MG TABLET PO (11:44)
[2019-06-25] MEDS: MULTIVITAMINS THERAPEUTIC TAB (*BKC) 1 TABLET PO (11:44)
[2019-06-25] MEDS: FLUTICASONE PROPIONATE 0.05% NA SPR 16 GM BTL (*BKC) 1 SPRAY NASAL ×2 (11:44→20:42)
[2019-06-25] MEDS: carvediloL 3.125 MG TABLET PO ×2 (11:44→20:42)
[2019-06-25] MEDS: NYSTATIN 100,000 UNITS/ML SUSP 5 ML ORAL.SUSP PO ×3 (11:45→20:42)
[2019-06-25] MEDS: CHOLECALCIFEROL 1,000 UNIT TABLET 1000 UNITS PO (11:45)
[2019-06-25] MEDS: methylPREDNISolone SOD SUCC 40 MG VIAL 20 MG IV PUSH ×2 (11:46→18:12)
--- NOTE | 2019-06-25 14:00 | PCSTNOTE ---
Bedside Swallow Evaluation - 06/25/2019:Pt. presents with swallow function winthin functional limits. Recommend she continue her regular diet with thin liquids. Patient should continue to use strategies of going slow, taking small bites/sips, and using multiple swallows as needed. No further skilled ST is warranted at this time.
--- NOTE | 2019-06-25 17:10 | PM.IMPN ---
Progress Note: A&P Assessment and Plan (1) CAD (coronary artery disease): Qualifiers: Coronary Disease-Associated Artery/Lesion type: [place] artery [place] vs. transplanted heart: [place] heart Associated angina: without angina Qualified Code(s): I25.10 - Atherosclerotic heart disease of [place] coronary artery without angina pectoris Code(s): I25.10 - Atherosclerotic heart disease of [place] coronary artery without angina pectoris Status: Chronic Assessment and Plan: On metoprolol and statin and ASA (2) Anxiety: Code(s): F41.9 - Anxiety disorder, unspecified Status: Acute Assessment and Plan: Pt takes sleeping aid for insomnia (3) Hypokalemia: Code(s): E87.6 - Hypokalemia Status: Acute Assessment and Plan: Pt had potassium rider in ED, pt to have potassium supplements today, enourage diet and ensures. Hopeful discharge soon. (4) GERD (gastroesophageal reflux disease): Code(s): K21.9 - Gastro-esophageal reflux disease without esophagitis Status: Acute Assessment and Plan: Pt is on protonix and emetics for nausea and vomiting (5) Hypertension: Qualifiers: Hypertension type: essential hypertension Qualified Code(s): I10 - Essential (primary) hypertension Code(s): I10 - Essential (primary) hypertension Status: Acute Assessment and Plan: On metoprolol. losartan, Bp is stable (6) Acute exacerbation of chronic obstructive airways disease: Code(s): J44.1 - Chronic obstructive pulmonary disease with (acute) exacerbation Status: Acute Assessment and Plan: 06/25/19 17:10 Pt on breathing treatments and oral doxycycline, CXr still showing atelectasis Sola Osborne is a 79 year old female pt lives in assisted living has been feeling short of breath and coughing alot. Pt has not been eating much. Found to have atelectasis on cxr and potassium levels is low as well as hyponatremia. Today the patient was quite hypoxic experiencing difficulty with breathing patient was given Lasix 40 mg IV Solu-Medrol 125 mg IV push ABG was done which showed the patient was hypoxic and BiPAP was placed discussed with spindle plumber who also examined the patient and transfer the patient to IMU DC doxycycline started the patient on Rocephin and azithromycin will continue Solu-Medrol 60 mg every 6 hours and Lasix 40 mg q 6, ABG showed improvement in patient's pH elevated CO2 will continue to monitor patient overnight IMU and will use BiPAP as needed. on 06/20 patient complained of chest tropes were ordered and are elevated, patient was seen by Cardiology and does not suspect acute coronary syndrome most likely type 2 myocardial infarction due to exacerbation of COPD, on 06/22 patient still requiring high-flow oxygen, on 06/23 patient was feeling much better off high-flow oxygen and on nasal cannula sitting in the chair, l seen by welding machine operator electro gas further recommendation, discussed with welding machine operator electro gas CT scan of the chest was done which shows some atelectasis, and severe COPD recommended continue present management and taper the Solu-Medrol in 2 days, however last night patient had a persistent and more shortness of breath patient was placed high-flow oxygen patient was seen by welding machine operator electro gas this morning, added azithromycin, morphine to help with anxiety, today patient and her family has decided place the patient on DNR. Will continue monitor the patient with high-flow oxygen as well as BiPAP will evaluate the patient tomorrow (7) Nasal congestion: Code(s): R09.81 - Nasal congestion Status: Acute Assessment and Plan: Pt started on flonase did better with her breathing (8) Hyponatremia: Code(s): E87.1 - Hypo-osmolality and hyponatremia Status: Acute Assessment and Plan: Patient with history of mild hyponatremia now exacerbated patient was seen by Dr. Tidwell and discussed will place the patient on fluid res
[2019-06-26] VITALS (30 sets, daily range): BP systolic 129–171; BP diastolic 49–77; PULSE 52–99; RESP 18–28; TEMP 35.9–36.6; O2SAT 90–100
[2019-06-26] MEDS: methylPREDNISolone SOD SUCC 40 MG VIAL 20 MG IV PUSH ×4 (00:05→17:32)
[2019-06-26] MEDS: IPRATROPIUM BR 0.02% INH SOLN 0.5 MG/2.5 ML VIAL INHALATION ×4 (01:30→21:43)
[2019-06-26] MEDS: ALBUTEROL SULFATE NEB 2.5 MG/0.5 ML INH INHALATION ×4 (01:30→21:43)
--- NOTE | 2019-06-26 03:54 | PC.NURSE ---
Daylight Savings Time For Daylight Savings Time Ending in the Fall - Clocks are moved back. For Daylight Savings Time Beginning in the Spring - Clocks are moved ahead. For [facility], the time of change occurs at 0200 hrs. Time is taken from the breakfast server. This entry on the patient's chart recognizes the change in time reflected during documentation. Example: 2 entries for vital signs may be charted for 0200 hrs.
[2019-06-26 05:34] LABS: Blood Urea Nitrogen 74 mg/dL (7-17); Calcium 9.7 mg/dL (8.4-10.2); Carbon Dioxide 27 mmol/L (22-30); Chloride 96 mmol/L (98-107); Estimated CRCL calculation 25 ml/min; Estimated Glomerular Filt Rate 39; Glucose 143 mg/dL (65-105); Potassium 4.8 mmol/L (3.4-5.0); Sodium 131 mmol/L (137-145)
--- NOTE | 2019-06-26 09:10 | P.PNNP_ITS ---
Progress Note: A&P Assessment and Plan (1) Hyponatremia: Code(s): E87.1 - Hypo-osmolality and hyponatremia Status: Acute Assessment and Plan: * has chronic hyponatremia at baseline that dates back to 2014 if not longer * baseline sodium runs ~ 129 - 132mmol/L * etiology of chronic hyponatremia likely due to: - HCTZ use - Paxil (SSRI) use - known history of COPD Her sodium level is up to 131. We will increase fluids to 1400. (2) JARRELL (acute kidney injury): Code(s): N17.9 - Acute kidney failure, unspecified Status: Acute Assessment and Plan: * Creatinine has doubled overall since admission. * Probably due to the diuretics. * Her chest x-ray was clear. * Will stop IV fluids. (3) Acute exacerbation of chronic obstructive airways disease: Code(s): J44.1 - Chronic obstructive pulmonary disease with (acute) exacerbation Status: Acute Assessment and Plan: * continue current therapy * wean O2 as tolerated (4) Hypertension: Qualifiers: Hypertension type: essential hypertension Qualified Code(s): I10 - Essential (primary) hypertension Code(s): I10 - Essential (primary) hypertension Status: Acute Assessment and Plan: * reasonable control * Blood pressure generally in the 130s. One time spiked to 170. * continue current medications (5) Fluid overload, unspecified: Code(s): E87.70 - Fluid overload, unspecified Status: Acute Assessment and Plan: * on lasix * Chest x-ray now clear. * Will stop the diuretics. Subjective Date/time seen: 06/26/19 09:10 Interval history: Patient is more alert and interactive. No chest pain. no sob. overall feels better. Review of Systems Cardiovascular: Cardiovascular: Reports no additional cardiovascular complaints Respiratory: Respiratory: Reports no additional respiratory complaints Gastrointestinal: Gastrointestinal: Reports no additional gastrointestinal complaints Genitourinary: Genitourinary: Reports no additional female genitourinary complaints Exam Narrative: Exam Narrative: General: WD/WN female in NAD Heart: normal S1 and S2; no rub Lungs: coarse breath sounds Abdomen: soft, nontender, nondistended, positive bowel sounds Extremities: no edema Skin: no rash Objective Data Vital Signs Vital Signs: Vital Signs - 24 hr 06/25/19 08:34 06/25/19 09:53 03/07/20 10:00 Temperature Pulse Rate 80 84 Respiratory Rate 20 Blood Pressure Pulse Oximetry 92 06/25/19 10:15 06/25/19 11:44 06/25/19 12:00 Temperature Pulse Rate 84 89 80 Respiratory Rate 26 H 26 H Blood Pressure Pulse Oximetry 92 06/25/19 12:15 06/25/19 14:00 06/25/19 14:33 Temperature 36.1 C L Pulse Rate 78 63 86 Respiratory Rate 24 H 22 H Blood Pressure 174/58 H Pulse Oximetry 89 L 06/25/19 14:35 06/25/19 14:43 06/25/19 16:00 Temperature 36.6 C Pulse Rate 83 70 Respiratory Rate 22 H 18 Blood Pressure 129/59 L Pulse Oximetry 92 94 06/25/19 18:00 06/25/19 19:38 06/25/19 20:00 Temperature
--- NOTE | 2019-06-26 09:10 | PM.PNNEP ---
Progress Note: A&P Assessment and Plan (1) Hyponatremia: Code(s): E87.1 - Hypo-osmolality and hyponatremia Status: Acute Assessment and Plan: has chronic hyponatremia at baseline that dates back to 2014 if not longer baseline sodium runs ~ 129 - 132mmol/L etiology of chronic hyponatremia likely due to: - HCTZ use - Paxil (SSRI) use - known history of COPD Her sodium level is up to 131. We will increase fluids to 1400. (2) JARRELL (acute kidney injury): Code(s): N17.9 - Acute kidney failure, unspecified Status: Acute Assessment and Plan: Creatinine has doubled overall since admission. Probably due to the diuretics. Her chest x-ray was clear. Will stop IV fluids. (3) Acute exacerbation of chronic obstructive airways disease: Code(s): J44.1 - Chronic obstructive pulmonary disease with (acute) exacerbation Status: Acute Assessment and Plan: continue current therapy wean O2 as tolerated (4) Hypertension: Qualifiers: Hypertension type: essential hypertension Qualified Code(s): I10 - Essential (primary) hypertension Code(s): I10 - Essential (primary) hypertension Status: Acute Assessment and Plan: reasonable control Blood pressure generally in the 130s. One time spiked to 170. continue current medications (5) Fluid overload, unspecified: Code(s): E87.70 - Fluid overload, unspecified Status: Acute Assessment and Plan: on lasix Chest x-ray now clear. Will stop the diuretics. Subjective Date/time seen: 06/26/19 09:10 Interval history: Patient is more alert and interactive. No chest pain. no sob. overall feels better. Review of Systems Cardiovascular: Cardiovascular: Reports no additional cardiovascular complaints Respiratory: Respiratory: Reports no additional respiratory complaints Gastrointestinal: Gastrointestinal: Reports no additional gastrointestinal complaints Genitourinary: Genitourinary: Reports no additional female genitourinary complaints Exam Narrative: Exam Narrative: General: WD/WN female in NAD Heart: normal S1 and S2; no rub Lungs: coarse breath sounds Abdomen: soft, nontender, nondistended, positive bowel sounds Extremities: no edema Skin: no rash Objective Data Vital Signs Vital Signs: Vital Signs - 24 hr 06/25/19 08:34 06/25/19 09:53 06/25/19 10:00 Temperature Pulse Rate 80 84 Respiratory Rate 20 Blood Pressure Pulse Oximetry 92 06/25/19 10:15 06/25/19 11:44 06/25/19 12:00 Temperature Pulse Rate 84 89 80 Respiratory Rate 26 H 26 H Blood Pressure Pulse Oximetry 92 06/25/19 12:15 06/25/19 14:00 06/25/19 14:33 Temperature 36.1 C L Pulse Rate 78 63 86 Respiratory Rate 24 H 22 H Blood Pressure 174/58 H Pulse Oximetry 89 L 06/25/19 14:35 06/25/19 14:43 06/25/19 16:00 Temperature 36.6 C Pulse Rate 83 70 Respiratory Rate 22 H 18 Blood Pressure 129/59 L Pulse Oximetry 92 94 06/25/19 18:00 06/25/19 19:38 06/25/19 20:00 Temperature 36.5 C Pulse Rate 67 70 63 Respiratory Rate 18 Blood Pressure 118/71 Pulse Oximetry 94 06/25/19 20:10 06/25/19 20:20 06/25/19 20:42 Temperature Pulse Rate 88 90 62 Respiratory Rate 22 H 20 Blood Pressure Pulse Oximetry 06/25/19 23:43 06/26/19 00:00 06/26/19 01:32 Temperature 36.3 C L Pulse Rate 65 55 L 91 Respiratory Rate 18 22 H Blood Pressure 145/48 H Pulse Oximetry 99 06/26/19 01:42 06/26/19 01:59 06/26/19 03:46 Temperature 36.1 C L Pulse Rate 81 54 L Respiratory Rate 18 24 H Blood Pressure 129/59 L Pulse Oximetry 90 100 06/26/19 04:00 06/26/19 08:32 06/26/19 08:35 Temperature Pulse Rate 52 L 77 Respiratory Rate 18 Blood Pressure Pulse Oximetry 95 06/26/19 08:40 Temperature Pulse Rate 67 Respiratory Rate 18 Blood Pressure Pulse Oximetry Intak
[2019-06-26] MEDS: ASPIRIN 81 MG ENTERIC TABLET PO (09:55)
[2019-06-26] MEDS: BENZONATATE 100 MG CAPSULE 200 MG PO (09:55)
[2019-06-26] MEDS: ATORVASTATIN 40 MG TABLET PO (09:56)
[2019-06-26] MEDS: LOSARTAN POTASSIUM 100 MG TABLET PO (09:56)
[2019-06-26] MEDS: PANTOPRAZOLE 40 MG TABLET PO ×2 (09:56→17:32)
[2019-06-26] MEDS: CHOLECALCIFEROL 1,000 UNIT TABLET 1000 UNITS PO (09:56)
[2019-06-26] MEDS: carvediloL 3.125 MG TABLET PO ×2 (09:56→21:07)
[2019-06-26] MEDS: NYSTATIN 100,000 UNITS/ML SUSP 5 ML ORAL.SUSP PO ×4 (09:56→21:07)
[2019-06-26] MEDS: FLUOXETINE HCL 20 MG CAP PO (09:56)
[2019-06-26] MEDS: FERROUS SULFATE 324 MG TABLET PO (09:56)
[2019-06-26] MEDS: MULTIVITAMINS THERAPEUTIC TAB (*BKC) 1 TABLET PO (09:56)
[2019-06-26] MEDS: FLUTICASONE PROPIONATE 0.05% NA SPR 16 GM BTL (*BKC) 1 SPRAY NASAL ×2 (09:57→21:08)
--- NOTE | 2019-06-26 14:15 | PCOTNOTE ---
Patient refused treatment this session.
[2019-06-26] MEDS: SODIUM CHLORIDE 0.9% IV 1,000 ML 75 ML IV CONT (14:30)
--- NOTE | 2019-06-26 15:26 | PM.PNPUL ---
Progress Note: A&P Assessment and Plan (1) COPD exacerbation: Code(s): J44.1 - Chronic obstructive pulmonary disease with (acute) exacerbation Status: Acute (2) Acute hypoxemic respiratory failure: Code(s): J96.01 - Acute respiratory failure with hypoxia Status: Acute (3) Viral syndrome: Code(s): B34.9 - Viral infection, unspecified Status: Acute Additional Plan - changed albuterol/Atroven to 2.5/0.5 mg Q6h scheduled - STAT ABG, portable CXR ordered this morning - continue Azithromycin 500 mg IV daily add to Ceftriaxone - continue Tussionex 5 ml PO Q12h PRN cough - Would not benefit from BIPAP, continue high flow oxygen. - Agree with CT chest P.E. protocol to r/o P.E. Sometimes P.E. can cause unilateral atelectasis. Agree with IVF to prevent nephrotoxcity from IV contrast and holding diuretics. Time Spent With Patient Time with patient: 15 - 25 minutes Subjective Date/time seen: 06/26/19 15:26 Interval history: He more episodes of desaturation yesterday with coughing. Coughing has diminished anti tussive meds. She still feels short of breath with minimal exertion. Cough is non productive. CXR is improved but shows persistent LLL atelectasis. Review of Systems Review of Systems: All systems reviewed & are unremarkable except as noted in HPI and below Exam Const: General: comfortable and no acute distress HENMT: Mouth: Yes moist mucous membranes Neck: Neck: supple and no JVD Resp: Auscultation: diminished lung sounds Cardio: Rate: regular rate Rhythm: regular rhythm Heart sounds: no murmurs GI: GI Palp: Yes Soft to palpation Auscultation: normal bowel sounds Skin: General skin exam: normal color and no rashes or lesions noted Extrem: General: no edema and no pedal edema Objective Data Vital Signs Vital Signs: Vital Signs - 24 hr 06/25/19 14:33 06/25/19 14:35 06/25/19 14:43 Temperature Pulse Rate 86 83 Respiratory Rate 22 H 22 H Blood Pressure Pulse Oximetry 92 06/25/19 16:00 06/25/19 18:00 06/25/19 19:38 Temperature 36.6 C 36.5 C Pulse Rate 70 67 70 Respiratory Rate 18 18 Blood Pressure 129/59 L 118/71 Pulse Oximetry 94 94 06/25/19 20:00 06/25/19 20:10 06/25/19 20:20 Temperature Pulse Rate 63 88 90 Respiratory Rate 22 H 20 Blood Pressure Pulse Oximetry 06/25/19 20:42 06/25/19 23:43 06/26/19 00:00 Temperature 36.3 C L Pulse Rate 62 65 55 L Respiratory Rate 18 Blood Pressure 145/48 H Pulse Oximetry 99 06/26/19 01:32 06/26/19 01:42 06/26/19 01:59 Temperature Pulse Rate 91 81 Respiratory Rate 22 H 18 Blood Pressure Pulse Oximetry 90 06/26/19 03:46 06/26/19 04:00 06/26/19 08:00 Temperature 36.1 C L 36.2 C L Pulse Rate 54 L 52 L 68 Respiratory Rate 24 H 18 Blood Pressure 129/59 L 168/57 H Pulse Oximetry 100 95 06/26/19 08:32 06/26/19 08:35 06/26/19 08:40 Temperature Pulse Rate 77 67 Respiratory Rate 18 18 Blood Pressure Pulse Oximetry 95 06/26/19 09:56 06/26/19 10:00 06/26/19 11:50 Temperature Pulse Rate 68 68 Respiratory Rate Blood Pressure Pulse Oximetry 98 06/26/19 12:00 06/26/19 12:20 06/26/19 14:08 Temperature 35.9 C L Pulse Rate 71 62 Respiratory Rate 24 H 18 Blood Pressure 171/77 H Pulse Oximetry 98 93 06/26/19 14:16 06/26/19 14:22 Temperature Pulse Rate 62 Respiratory Rate 18 Blood Pressure Pulse Oximetry 93 Intake/Output Intake/Output: Intake & Output 06/23/19 06/24/19 06/25/19 06/27/19 23:59 23:59 23:59 00:59 Intake Total 510 1250 720 220 Output Total 1000 8294 3134 200 Balance -490 -425 -905 20 Meds/Results Medications: Active Medications Generic Name Dose Route Start Last Admin Trade Name Freq PRN Reason Stop Dose Admin Acetaminophen 650 mg 06/17/19 10:57 06/17/19 17:11 Tylenol Tablet PO 650 mg Q4H PRN Administration Mild Pain (1-3) or Fever Albuterol 2.5 mg
--- NOTE | 2019-06-26 15:48 | PCPTNOTE ---
Patient refused treatment this session due to fatigue. Patient states that she is too tired and would like to rest. Per Rn, Patient is going down for CT scan shortly.
--- NOTE | 2019-06-26 16:47 | PM.IMPN ---
Progress Note: A&P Assessment and Plan (1) CAD (coronary artery disease): Qualifiers: Coronary Disease-Associated Artery/Lesion type: [place] artery [place] vs. transplanted heart: [place] heart Associated angina: without angina Qualified Code(s): I25.10 - Atherosclerotic heart disease of [place] coronary artery without angina pectoris Code(s): I25.10 - Atherosclerotic heart disease of [place] coronary artery without angina pectoris Status: Chronic Assessment and Plan: On metoprolol and statin and ASA (2) Anxiety: Code(s): F41.9 - Anxiety disorder, unspecified Status: Acute Assessment and Plan: Pt takes sleeping aid for insomnia (3) Hypokalemia: Code(s): E87.6 - Hypokalemia Status: Acute Assessment and Plan: Pt had potassium rider in ED, pt to have potassium supplements today, enourage diet and ensures. Hopeful discharge soon. (4) GERD (gastroesophageal reflux disease): Code(s): K21.9 - Gastro-esophageal reflux disease without esophagitis Status: Acute Assessment and Plan: Pt is on protonix and emetics for nausea and vomiting (5) Hypertension: Qualifiers: Hypertension type: essential hypertension Qualified Code(s): I10 - Essential (primary) hypertension Code(s): I10 - Essential (primary) hypertension Status: Acute Assessment and Plan: On metoprolol. losartan, Bp is stable (6) Acute exacerbation of chronic obstructive airways disease: Code(s): J44.1 - Chronic obstructive pulmonary disease with (acute) exacerbation Status: Acute Assessment and Plan: 06/26/19 16:47 Pt on breathing treatments and oral doxycycline, CXr still showing atelectasis Sola Osborne is a 79 year old female pt lives in assisted living has been feeling short of breath and coughing alot. Pt has not been eating much. Found to have atelectasis on cxr and potassium levels is low as well as hyponatremia. Today the patient was quite hypoxic experiencing difficulty with breathing patient was given Lasix 40 mg IV Solu-Medrol 125 mg IV push ABG was done which showed the patient was hypoxic and BiPAP was placed discussed with billing collections specialist who also examined the patient and transfer the patient to IMU DC doxycycline started the patient on Rocephin and azithromycin will continue Solu-Medrol 60 mg every 6 hours and Lasix 40 mg q 6, ABG showed improvement in patient's pH elevated CO2 will continue to monitor patient overnight IMU and will use BiPAP as needed. on 06/20 patient complained of chest tropes were ordered and are elevated, patient was seen by Cardiology and does not suspect acute coronary syndrome most likely type 2 myocardial infarction due to exacerbation of COPD, on 06/22 patient still requiring high-flow oxygen, on 06/23 patient was feeling much better off high-flow oxygen and on nasal cannula sitting in the chair, l seen by information technology data analyst further recommendation, discussed with information technology data analyst CT scan of the chest was done which shows some atelectasis, and severe COPD recommended continue present management and taper the Solu-Medrol in 2 days, however last night patient had a persistent and more shortness of breath patient was placed high-flow oxygen patient was seen by information technology data analyst this morning, added azithromycin, morphine to help with anxiety, today patient and her family has decided place the patient on DNR. Today patient still requiring high-flow oxygen discussed with information technology data analyst recommending to do CTA of the chest which showed patient has 5 very small cysts segmental PE and lung collapse is chronic beating recommendation from the information technology data analyst (7) Nasal congestion: Code(s): R09.81 - Nasal congestion Status: Acute Assessment and Plan: Pt started on flonase did better with her breathing (8) Hyponatremia: Code(s): E87.1 - Hypo-osmolality and hyponatremia Status: Acute Assessment and Plan: Sonali
[2019-06-26 17:52] LABS: Basophils Percent Auto 0.1 % (0.2-1.2); Hematocrit 40.2 % (37.0-47.0); Hemoglobin 13.7 g/dL (12.0-15.0); Immature Granulocyte Percent A 0.7 % (0-0.5); Lymphocytes Absolute Auto 0.72 K/mm3 (0.9-3.2); Mean Corpuscular HGB Conc 34.1 g/dl (32-36); Mean Corpuscular Hemoglobin 28.8 pg (26-34); Mean Corpuscular Volume 84.6 fl (80-100); Mean Platelet Volume 9.4 fl (7.4-10.4); Monocytes Absolute Auto 0.7 K/mm3 (0.1-0.6); Monocytes Percent Auto 4.9 % (2.6-8.5); Neutrophils Absolute Auto 12.9 K/mm3 (1.3-6.7); Neutrophils Percent Auto 89.3 % (45.5-73.1); Platelet Count Result 309 k/mm3 (150-375); Red Blood Count 4.75 M/mm3 (4.2-5.4); Red Cell Distribution Width 14.3 % (11.5-14.5); White Blood Count 14.5 K/mm3 (4.5-10.0)
[2019-06-26 18:02] LABS: INR 1.1; Partial Thromboplastin Time 21.3 SECONDS (22.3-36.8); Prothrombin Time 13.5 Seconds (11.1-14.7)
[2019-06-26] MEDS: HEPARIN SODIUM 5,000 UNITS/ML VIAL 4000 UNITS IV PUSH (18:35)
[2019-06-26] MEDS: HEPARIN SOD/D5W 100 UNITS/ML 25,000 UNITS/250 ML BAG 9 UNITS IV CONT (18:35)
[2019-06-27] VITALS (23 sets, daily range): BP systolic 106–159; BP diastolic 45–61; PULSE 52–83; RESP 14–20; TEMP 36–36.7; O2SAT 90–99
[2019-06-27] MEDS: methylPREDNISolone SOD SUCC 40 MG VIAL 20 MG IV PUSH ×4 (01:02→17:56)
[2019-06-27 02:03] LABS: Partial Thromboplastin Time > 200.0 SECONDS (22.3-36.8)
[2019-06-27] MEDS: IPRATROPIUM BR 0.02% INH SOLN 0.5 MG/2.5 ML VIAL INHALATION ×3 (03:37→14:00)
[2019-06-27] MEDS: ALBUTEROL SULFATE NEB 2.5 MG/0.5 ML INH INHALATION ×3 (03:37→14:00)
[2019-06-27] MEDS: SODIUM CHLORIDE 0.9% IV 1,000 ML 75 ML IV CONT (05:50)
[2019-06-27 09:10] LABS: Basophils Percent Auto 0.1 % (0.2-1.2); Hematocrit 39.1 % (37.0-47.0); Hemoglobin 13.2 g/dL (12.0-15.0); Immature Granulocyte Absolute 0.07 K/mm3 (0.00-0.031); Immature Granulocyte Percent A 0.5 % (0-0.5); Lymphocytes Absolute Auto 0.65 K/mm3 (0.9-3.2); Lymphocytes Percent Auto 4.4 % (18.3-44.2); Mean Corpuscular HGB Conc 33.8 g/dl (32-36); Mean Corpuscular Hemoglobin 28.9 pg (26-34); Mean Corpuscular Volume 85.6 fl (80-100); Mean Platelet Volume 9.4 fl (7.4-10.4); Monocytes Absolute Auto 0.6 K/mm3 (0.1-0.6); Monocytes Percent Auto 4.1 % (2.6-8.5); Neutrophils Absolute Auto 13.4 K/mm3 (1.3-6.7); Neutrophils Percent Auto 90.9 % (45.5-73.1); Platelet Count Result 302 k/mm3 (150-375); Red Blood Count 4.57 M/mm3 (4.2-5.4); Red Cell Distribution Width 14.5 % (11.5-14.5); White Blood Count 14.7 K/mm3 (4.5-10.0)
[2019-06-27] MEDS: NYSTATIN 100,000 UNITS/ML SUSP 5 ML ORAL.SUSP PO (09:16)
[2019-06-27] MEDS: LOSARTAN POTASSIUM 100 MG TABLET PO (09:16)
[2019-06-27] MEDS: ASPIRIN 81 MG ENTERIC TABLET PO (09:16)
[2019-06-27] MEDS: carvediloL 3.125 MG TABLET PO (09:16)
[2019-06-27] MEDS: FLUOXETINE HCL 20 MG CAP PO (09:16)
[2019-06-27] MEDS: ATORVASTATIN 40 MG TABLET PO (09:16)
[2019-06-27] MEDS: PANTOPRAZOLE 40 MG TABLET PO (09:16)
[2019-06-27] MEDS: CHOLECALCIFEROL 1,000 UNIT TABLET 1000 UNITS PO (09:16)
[2019-06-27] MEDS: FLUTICASONE PROPIONATE 0.05% NA SPR 16 GM BTL (*BKC) 1 SPRAY NASAL (09:16)
[2019-06-27] MEDS: FERROUS SULFATE 324 MG TABLET PO (09:16)
[2019-06-27 09:37] LABS: Partial Thromboplastin Time > 200.0 SECONDS (22.3-36.8)
[2019-06-27 09:52] LABS: Albumin Level 3.3 g/dL (3.5-5.1); Blood Urea Nitrogen 45 mg/dL (7-17); Calcium 9.2 mg/dL (8.4-10.2); Carbon Dioxide 28 mmol/L (22-30); Chloride 99 mmol/L (98-107); Estimated CRCL calculation 40 ml/min; Estimated Glomerular Filt Rate > 60; Glucose 117 mg/dL (65-105); Phosphorus 3.4 mg/dL (2.5-4.5); Potassium 4.2 mmol/L (3.4-5.0); Sodium 134 mmol/L (137-145)
[2019-06-27] MEDS: MULTIVITAMINS THERAPEUTIC TAB (*BKC) 1 TABLET PO (10:11)
--- NOTE | 2019-06-27 11:36 | ECG_ITS ---
Measurements Intervals [place] Rate: 69 P: 57 FL: 135 QRS: -70 QRSD: 148 T: 4 QT: 452 QTc: 486 Interpretive Statements SINUS RHYTHM RIGHT BUNDLE BRANCH BLOCK LEFT ANTERIOR FASCICULAR BLOCK VOLTAGE CRITERIA FOR LVH ABNORMAL ECG Electronically Signed On 06-27-2019 13:01:41 CDT by Mateo Hunt D.O.
[2019-06-27 12:33] LABS: Troponin I 0.051 ng/mL (0.000-0.034)
[2019-06-27 15:55] LABS: Troponin I 0.055 ng/mL (0.000-0.034)
--- NOTE | 2019-06-27 16:56 | PM.IMPN ---
Progress Note: A&P Assessment and Plan (1) CAD (coronary artery disease): Qualifiers: Coronary Disease-Associated Artery/Lesion type: [place] artery [place] vs. transplanted heart: [place] heart Associated angina: without angina Qualified Code(s): I25.10 - Atherosclerotic heart disease of [place] coronary artery without angina pectoris Code(s): I25.10 - Atherosclerotic heart disease of [place] coronary artery without angina pectoris Status: Chronic Assessment and Plan: On metoprolol and statin and ASA (2) Anxiety: Code(s): F41.9 - Anxiety disorder, unspecified Status: Acute Assessment and Plan: Pt takes sleeping aid for insomnia (3) Hypokalemia: Code(s): E87.6 - Hypokalemia Status: Acute Assessment and Plan: Pt had potassium rider in ED, pt to have potassium supplements today, enourage diet and ensures. Hopeful discharge soon. (4) GERD (gastroesophageal reflux disease): Code(s): K21.9 - Gastro-esophageal reflux disease without esophagitis Status: Acute Assessment and Plan: Pt is on protonix and emetics for nausea and vomiting (5) Hypertension: Qualifiers: Hypertension type: essential hypertension Qualified Code(s): I10 - Essential (primary) hypertension Code(s): I10 - Essential (primary) hypertension Status: Acute Assessment and Plan: On metoprolol. losartan, Bp is stable (6) Acute exacerbation of chronic obstructive airways disease: Code(s): J44.1 - Chronic obstructive pulmonary disease with (acute) exacerbation Status: Acute Assessment and Plan: 06/27/19 16:56 Pt on breathing treatments and oral doxycycline, CXr still showing atelectasis Sola Osborne is a 79 year old female pt lives in assisted living has been feeling short of breath and coughing alot. Pt has not been eating much. Found to have atelectasis on cxr and potassium levels is low as well as hyponatremia. Today the patient was quite hypoxic experiencing difficulty with breathing patient was given Lasix 40 mg IV Solu-Medrol 125 mg IV push ABG was done which showed the patient was hypoxic and BiPAP was placed discussed with upholstery auto trimmer who also examined the patient and transfer the patient to IMU DC doxycycline started the patient on Rocephin and azithromycin will continue Solu-Medrol 60 mg every 6 hours and Lasix 40 mg q 6, ABG showed improvement in patient's pH elevated CO2 will continue to monitor patient overnight IMU and will use BiPAP as needed. on 06/20 patient complained of chest tropes were ordered and are elevated, patient was seen by Cardiology and does not suspect acute coronary syndrome most likely type 2 myocardial infarction due to exacerbation of COPD, on 06/22 patient still requiring high-flow oxygen, on 06/23 patient was feeling much better off high-flow oxygen and on nasal cannula sitting in the chair, l seen by in school suspension aide further recommendation, discussed with in school suspension aide CT scan of the chest was done which shows some atelectasis, and severe COPD recommended continue present management and taper the Solu-Medrol in 2 days, however last night patient had a persistent and more shortness of breath patient was placed high-flow oxygen patient was seen by in school suspension aide this morning, added azithromycin, morphine to help with anxiety, today patient and her family has decided place the patient on DNR. on 06/25 patient still was requiring high-flow oxygen discussed with in school suspension aide recommending to do CTA of the chest which showed patient has 5 very small cysts segmental PE and lung collapse is chronic most likely chronic patient was started on heparin drip will monitor patient kidney function once stable will switch the patient to Eliquis, today patient complains of chest pain to further evaluate patient had EKG which did not show any acute changes patient tropes are mild and flat unlikely patient is AV acute coronary syndrome will cont
--- NOTE | 2019-06-27 17:41 | PM.PNPUL ---
Progress Note: A&P Assessment and Plan (1) Acute hypoxemic respiratory failure: Code(s): J96.01 - Acute respiratory failure with hypoxia Status: Acute Assessment and Plan: Due to multiple small PEs; she wants to stop aggressive care, change to comfort care' - add scopalamine patch, IV ativan and morphine, wean O2, change nebs to prn. (2) COPD exacerbation: Code(s): J44.1 - Chronic obstructive pulmonary disease with (acute) exacerbation Status: Acute Assessment and Plan: - Albuterol/Ipratropium 2.5 mg/0.5 mg Q6h - Pulmicort 0.5 mg Nebulized bid - no need for antibiotics in my opinion as a clear bacterial pneumonia is not present - Incentive Spirometer Q1-2h while awake - PT/OT and encourage mobilzation (3) Viral syndrome: Code(s): B34.9 - Viral infection, unspecified Status: Acute (4) End of life care: Code(s): Z51.5 - Encounter for palliative care Status: Acute Assessment and Plan: d/w Coleen her daughter, orders entered, spoke with RT Nory. Additional Plan - stop unnecesssary meds. - wean high flow oxygen to nasal cannula, can wean off if patient agrees. Subjective Date/time seen: 06/27/19 17:41 Interval history: She has her sisters at the bedside, and is waiting for her other duaghter to arrive before changing to comfort measures only. She has had enough of aggressive treatment, wants to stop everything except meds for comfort. Seh is on high flow at 50% and 40 L/minute. Couging small amounts of blood, mainly coming from her nose. Daughter Coleen and niece Mily who is an [employer] are here with the hafsa's sisters. There are 2 sons, one was here all day and the other is out of town. CXR is improved but shows persistent LLL atelectasis. She has a subsegmental PE; she is on IV heparin. Review of Systems Review of Systems: All systems reviewed & are unremarkable except as noted in HPI and below Exam Const: General: comfortable and no acute distress HENMT: Mouth: Yes moist mucous membranes Neck: Neck: supple and no JVD Resp: Auscultation: diminished lung sounds Cardio: Rate: regular rate Rhythm: regular rhythm Heart sounds: no murmurs GI: Auscultation: normal bowel sounds Skin: General skin exam: normal color and no rashes or lesions noted Extrem: General: no edema and no pedal edema Objective Data Vital Signs Vital Signs: Vital Signs - 24 hr 06/26/19 18:00 06/26/19 20:00 06/26/19 21:00 Temperature 36.6 C Pulse Rate 65 75 Respiratory Rate 24 H Blood Pressure 150/49 H Pulse Oximetry 96 99 06/26/19 21:07 06/26/19 21:33 06/26/19 21:42 Temperature Pulse Rate 70 67 Respiratory Rate 18 Blood Pressure Pulse Oximetry 98 06/26/19 21:52 06/26/19 22:00 06/26/19 23:50 Temperature 36.5 C Pulse Rate 71 57 L 66 Respiratory Rate 18 22 H Blood Pressure 148/50 H Pulse Oximetry 99 06/27/19 00:00 06/27/19 02:00 06/27/19 03:40 Temperature Pulse Rate 56 L 52 L 61 Respiratory Rate 18 Blood Pressure Pulse Oximetry 06/27/19 03:44 06/27/19 04:00 06/27/19 06:00 Temperature 36.7 C Pulse Rate 54 L 52 L Respiratory Rate 20 Blood Pressure 118/47 L Pulse Oximetry 98 95 06/27/19 08:00 06/27/19 08:34 06/27/19 08:35 Temperature 36.0 C L Pulse Rate 70 71 Respiratory Rate 14 20 Blood Pressure 154/57 H Pulse Oximetry 97 94 06/27/19 08:48 06/27/19 09:16 06/27/19 10:00 Temperature Pulse Rate 68 68 83 Respiratory Rate 20 Blood Pressure Pulse Oximetry 06/27/19 12:00 06/27/19 13:56 06/27/19 14:00 Temperature 36.2 C L Pulse Rate 67 70 Respiratory Rate 16 Blood Pressure 106/45 L Pulse Oximetry 90 99 06/27/19 14:01 06/27/19 14:16 06/27/19 14:48 Temperature Pulse Rate 63 60 Respiratory Rate 20 20 Blood Pressure Pulse Oximetry 96 Intake/Output Intake/Output: Intake & Output 06/24/19 06/25/19 06/26/19 06/27/19 22:59
[2019-06-27 18:21] LABS: Partial Thromboplastin Time 75.3 SECONDS (22.3-36.8)
--- NOTE | 2019-06-27 18:39 | PM.PNNEP ---
Progress Note: A&P Assessment and Plan (1) Hyponatremia: Code(s): E87.1 - Hypo-osmolality and hyponatremia Status: Acute Assessment and Plan: has chronic hyponatremia at baseline that dates back to 2014 if not longer baseline sodium runs ~ 129 - 132mmol/L etiology of chronic hyponatremia likely due to: - HCTZ use - Paxil (SSRI) use - known history of COPD easing up on fluid restriction at this time (2) JARRELL (acute kidney injury): Code(s): N17.9 - Acute kidney failure, unspecified Status: Acute Assessment and Plan: resolved due to diuretics which have been stopped follow trend of creatinine (3) Acute exacerbation of chronic obstructive airways disease: Code(s): J44.1 - Chronic obstructive pulmonary disease with (acute) exacerbation Status: Acute Assessment and Plan: continue current therapy wean O2 as tolerated (4) Hypertension: Qualifiers: Hypertension type: essential hypertension Qualified Code(s): I10 - Essential (primary) hypertension Code(s): I10 - Essential (primary) hypertension Status: Acute Assessment and Plan: reasonable control continue current medications Not much else to offer at this time -- will continue to follow intermittently. Subjective Date/time seen: 06/27/19 18:39 No new issues or problems voiced at this time; no events overnight or earlier this AM; overall, seems to be feeling significantly better since admission Exam Narrative: Exam Narrative: General: WD/WN female in NAD Heart: normal S1 and S2; no rub Lungs: coarse breath sounds Abdomen: soft, nontender, nondistended, positive bowel sounds Extremities: no edema Skin: no nodules Objective Data Vital Signs Vital Signs: Vital Signs Temp Pulse Resp BP Pulse Ox 06/27/19 14:48 96 06/27/19 14:16 60 20 06/27/19 14:01 63 20 06/27/19 14:00 70 06/27/19 13:56 99 06/27/19 12:00 36.2 C L 67 16 106/45 L 90 06/27/19 10:00 83 06/27/19 09:16 68 06/27/19 08:48 68 20 06/27/19 08:35 71 20 06/27/19 08:34 94 06/27/19 08:00 36.0 C L 70 14 154/57 H 97 06/27/19 06:00 52 L 06/27/19 04:00 36.7 C 54 L 20 118/47 L 95 06/27/19 03:44 98 06/27/19 03:40 61 18 06/27/19 02:00 52 L 06/27/19 00:00 56 L 06/26/19 23:50 36.5 C 66 22 H 148/50 H 99 06/26/19 22:00 57 L 06/26/19 21:52 71 18 06/26/19 21:42 67 18 06/26/19 21:33 98 06/26/19 21:07 70 06/26/19 21:00 99 06/26/19 20:00 36.6 C 75 24 H 150/49 H 96 Intake/Output Intake/Output: Intake & Output 06/24/19 06/25/19 06/26/19 06/27/19 22:59 22:59 23:59 23:59 Intake Total 2099 Output Total 250 Balance 1849 Meds/Results Medications: Active Medications Generic Name Dose Route Start Last Admin Trade Name Freq PRN Reason Stop Dose Admin Acetaminophen 650 mg 06/17/19 10:57 06/17/19 17:11 Tylenol Tablet PO 650 mg Q4H PRN Administration Mild Pain (1-3) or Fever Albuterol 2.5 mg 06/25/19 09:20 06/27/19 14:00 Albuterol Sulf Neb 2.5mg/0.5ml INHALATION 2.5 mg Q6HRT KAI Administration Aspirin 81 mg 06/18/19 09:00 06/27/19 09:16 Aspirin Ec PO 81 mg DAILY KAI Administration Atorvastatin Calcium 40 mg 06/18/19 09:00 06/27/19 09:16 Lipitor PO 40 mg DAILY KAI Administration Benzonatate 200 mg 06/20/19 11:41 06/26/19 09:55 Tessalon Perles PO 200 mg Q8HR PRN Administration Cough Carvedilol 3.125 mg 06/18/19 09:00 06/27/19 09:16 Coreg PO 3.125 mg Q12HR KAI Administration Chlorphenir/Hydrocodone Polistirex 5 ml 06/25/19 09:10 06/26/19 09:53 Tussionex PO 5 ml Q12H PRN Administration Cough Ferrous Sulfate 324 mg 06/18/19 09:00 03/09/20 09:16 Ferrous Sulfate PO 324 mg DAILY KAI Administration Fluoxetine HCl 20 mg 0
[2019-06-27 18:47] LABS: Troponin I 0.049 ng/mL (0.000-0.034)
[2019-06-27] MEDS: MORPHINE SULFATE 2 MG/ML INJ IV PUSH (21:37)
[2019-06-27] MEDS: LORAZEPAM INJ 2 MG/ML VIAL 0.5 MG IV PUSH ×4 (21:37→23:42)
[2019-06-27] MEDS: SCOPOLAMINE 1.5 MG PATCH TRANSDERM (21:43)
[2019-06-27] MEDS: MORPHINE SULFATE 2 MG/ML INJ 1 MG IV PUSH ×3 (22:20→23:43)
[2019-06-28] VITALS: PULSE 68
[2019-06-28] MEDS: LORAZEPAM INJ 2 MG/ML VIAL 0.5 MG IV PUSH ×15 (00:21→20:25)
[2019-06-28] MEDS: MORPHINE SULFATE 2 MG/ML INJ IV PUSH ×11 (00:21→20:25)
[2019-06-28] MEDS: MORPHINE SULFATE 2 MG/ML INJ 1 MG IV PUSH ×4 (00:55→06:46)
[2019-06-28 02:00] VITALS: PULSE 80
[2019-06-28 04:00] VITALS: PULSE 85; PULSE 87; O2SAT 95
[2019-06-28 06:00] VITALS: PULSE 87
--- NOTE | 2019-06-28 08:16 | PCOTNOTE ---
Attempted to see patient this a.m. Upon entering, patient's family present and informs that comfort care is in place. Confirmation made with RN. OT session not completed and not recommended at this time.
--- NOTE | 2019-06-28 15:42 | PCPTNOTE ---
The PT treatment was unable to be completed today. Will continue per Plan of Care frequency and duration.
--- NOTE | 2019-06-28 18:08 | PM.IMPN ---
Progress Note: A&P Assessment and Plan (1) CAD (coronary artery disease): Qualifiers: Coronary Disease-Associated Artery/Lesion type: [place] artery [place] vs. transplanted heart: [place] heart Associated angina: without angina Qualified Code(s): I25.10 - Atherosclerotic heart disease of [place] coronary artery without angina pectoris Code(s): I25.10 - Atherosclerotic heart disease of [place] coronary artery without angina pectoris Status: Chronic Assessment and Plan: On metoprolol and statin and ASA (2) Anxiety: Code(s): F41.9 - Anxiety disorder, unspecified Status: Acute Assessment and Plan: Pt takes sleeping aid for insomnia (3) Hypokalemia: Code(s): E87.6 - Hypokalemia Status: Acute Assessment and Plan: Pt had potassium rider in ED, pt to have potassium supplements today, enourage diet and ensures. Hopeful discharge soon. (4) GERD (gastroesophageal reflux disease): Code(s): K21.9 - Gastro-esophageal reflux disease without esophagitis Status: Acute Assessment and Plan: Pt is on protonix and emetics for nausea and vomiting (5) Hypertension: Qualifiers: Hypertension type: essential hypertension Qualified Code(s): I10 - Essential (primary) hypertension Code(s): I10 - Essential (primary) hypertension Status: Acute Assessment and Plan: On metoprolol. losartan, Bp is stable (6) Acute exacerbation of chronic obstructive airways disease: Code(s): J44.1 - Chronic obstructive pulmonary disease with (acute) exacerbation Status: Acute Assessment and Plan: 06/27/19 16:56 Pt on breathing treatments and oral doxycycline, CXr still showing atelectasis Sola Osborne is a 79 year old female pt lives in assisted living has been feeling short of breath and coughing alot. Pt has not been eating much. Found to have atelectasis on cxr and potassium levels is low as well as hyponatremia. Today the patient was quite hypoxic experiencing difficulty with breathing patient was given Lasix 40 mg IV Solu-Medrol 125 mg IV push ABG was done which showed the patient was hypoxic and BiPAP was placed discussed with rounding and backing machine operator who also examined the patient and transfer the patient to IMU DC doxycycline started the patient on Rocephin and azithromycin will continue Solu-Medrol 60 mg every 6 hours and Lasix 40 mg q 6, ABG showed improvement in patient's pH elevated CO2 will continue to monitor patient overnight IMU and will use BiPAP as needed. on 06/20 patient complained of chest tropes were ordered and are elevated, patient was seen by Cardiology and does not suspect acute coronary syndrome most likely type 2 myocardial infarction due to exacerbation of COPD, on 06/22 patient still requiring high-flow oxygen, on 06/23 patient was feeling much better off high-flow oxygen and on nasal cannula sitting in the chair, l seen by clinical ob further recommendation, discussed with clinical ob CT scan of the chest was done which shows some atelectasis, and severe COPD recommended continue present management and taper the Solu-Medrol in 2 days, however last night patient had a persistent and more shortness of breath patient was placed high-flow oxygen patient was seen by clinical ob this morning, added azithromycin, morphine to help with anxiety, today patient and her family has decided place the patient on DNR. on 06/25 patient still was requiring high-flow oxygen discussed with clinical ob recommending to do CTA of the chest which showed patient has 5 very small cysts segmental PE and lung collapse is chronic most likely chronic patient was started on heparin drip will monitor patient kidney function once stable will switch the patient to Eliquis, today patient complains of chest pain to further evaluate patient had EKG which did not show any acute changes patient tropes are mild and flat unlikely patient is AV acute coronary syndrome will cont
--- NOTE | 2019-06-28 18:45 | PCCCNOTE ---
1800 Spoke with family; multiple family members present including pt sisters, daughters, and nieces. Daughter (Coleen) stated that [facility] is their choice for hospice care. Maty from [facility] notified. Information gathered for Hospice and Maty stated that she would meet with pt and family around 7PM. Family informed. Info packet left with nurse and chart.
--- NOTE | 2019-06-28 18:51 | PC.NURSE ---
This patient, Sola Osborne, was received from [facility] on 06/28/19 at 1852. Personal belongings list checked and signed. Patient/family oriented to unit policies and routines. Report received from Jossy MAHONEY.
--- NOTE | 2019-06-28 19:42 | PM.DS ---
DS: Diagnosis Admitting Diagnosis Admitting Diagnosis: Atherosclerotic heart disease of [place] coronary artery without angina pectoris DS: Summary Time Spent with Patient Time attestation: Total time spent providing and/or coordinating discharge services: Discharge Plan Discharge Attending physician on discharge: Angelique Marquez Consulting providers: Jeovanny Del Rosario ; Tiago Tidwell ; Kyree Gresham Discharging Clinician: Angelique Marquez Patient Disposition: Hospice - Home Activity: as tolerated Discharge Instructions: patient is being admitted under hospice care Patient Instructions: Coronary Artery Disease (DC), Hyponatremia (DC), COPD (Chronic Obstructive Pulmonary Disease) (ED), Anxiety (GEN), BiPAP (GEN) Stand Alone Forms: General Discharge Information Discharge Medications: Discontinued aspirin 81 mg tablet,delayed release (DR/EC) 81 mg PO DAILY RF: 0 cholecalciferol (vitamin D3) 1,000 unit capsule 1,000 unit PO DAILY RF: 0 fluoxetine 20 mg capsule 20 mg PO BID RF: 0 ferrous sulfate 325 mg (65 mg iron) tablet 325 mg PO DAILY RF: 0 triamcinolone acetonide 0.5 % Cream 1 applic TOPICAL BID PRN (Reason: Rash) RF: 0 meclizine 25 mg Tablet 25 mg PO TID PRN (Reason: Dizziness) RF: 0 promethazine 25 mg Tablet 25 mg PO Q6H PRN (Reason: Nausea) RF: 0 nitroglycerin 0.4 mg Tablet, Sublingual 0.4 mg SUBLINGUAL PRN PRN (Reason: Chest Pain) RF: 0 ondansetron 4 mg Tablet,Disintegrating 4 mg PO Q6H RF: 0 multivitamin [Daily-Linnea] Tablet 1 tablet PO DAILY RF: 0 carvedilol 3.125 mg Tablet 3.125 mg PO BID RF: 0 fluticasone propion-salmeterol [Advair Diskus] 250-50 mcg/dose blister with device 1 inhalation INHALATION BID Qty: 60 RF: 5 zolpidem 5 mg tablet 5 mg PO .hs PRN (Reason: sleep) Qty: 30 RF: 0 losartan-hydrochlorothiazide 100-25 mg tablet 1 tablet PO DAILY Qty: 90 RF: 1 pantoprazole 40 mg tablet,delayed release (DR/EC) 40 mg PO BID Qty: 60 RF: 5 atorvastatin 40 mg tablet 40 mg PO DAILY Qty: 30 RF: 5 Date of admission: 06/17/19 11:39 Primary Care Provider: Ha Alonso Admitting Provider: Donna Stewart Attending physician on admission: Donna Stewart Condition: Stable Quality VTE Prophylaxis VTE prophylaxis: mechanical ordered
== END 2019-06-28 21:04 | disposition hospice, inpatient (51) | DRG 190 ==
LOC: ANHED 11:34 → ANH2MED 11:45 → ANHIMU 06-20 14:39 → ANH2MED 06-28 21:03 → ANHIMU 07-01 12:05
PROVIDERS: Internal Medicine; Internal Medicine Critical Care Medicine; Internal Medicine Nephrology; Nurse Practitioner; Admitting Provider Family Medicine; Emergency Provider Family Medicine; Family Provider Family Medicine; PCP Physician Assistant; Visit Provider Family Medicine
DX: J44.1 Chronic obstructive pulmonary disease with (acute) exacerbation (principal); J96.02 Acute respiratory failure with hypercapnia; I26.94 Multiple subsegmental thrombotic pulmonary emboli without acute cor pulmonale; I21.A1 Myocardial infarction type 2; E87.1 Hypo-osmolality and hyponatremia; J98.11 Atelectasis; N17.9 Acute kidney failure, unspecified; I25.10 Atherosclerotic heart disease of native coronary artery without angina pectoris; G47.00 Insomnia, unspecified; E87.6 Hypokalemia; K21.9 Gastro-esophageal reflux disease without esophagitis; I10 Essential (primary) hypertension; M19.90 Unspecified osteoarthritis, unspecified site; F41.8 Other specified anxiety disorders; I25.2 Old myocardial infarction; K64.9 Unspecified hemorrhoids; L30.9 Dermatitis, unspecified; Z98.41 Cataract extraction status, right eye; Z98.42 Cataract extraction status, left eye; Z95.5 Presence of coronary angioplasty implant and graft; I27.20 Pulmonary hypertension, unspecified; E87.70 Fluid overload, unspecified; R09.81 Nasal congestion; T50.2X5A Adverse effect of carbonic-anhydrase inhibitors, benzothiadiazides and other diuretics, initial encounter; B34.9 Viral infection, unspecified; Z66 Do not resuscitate
CPT/HCPCS: 36415; 36600; 70450; 71045; 71046; 71250; 71275; 74019; 80048; 80069; 82375; 82533; 82805; 83050; 83735; 83880; 83930; 83935; 84295; 84300; 84443; 84484; 85025; 85027; 85610; 85730; 87081; 87804; 92610; 93005; 94002; 94640; 96365; 97110; 97116; 97161; 97165; 97530; 97535; 99285; A9270; J0456; J0696; J1644; J1940; J2060; J2270; J2920; J2930; J3475; J3480; J7030; J7131; Q9967

== ENCOUNTER 2019-06-28 21:05 | HOS | payer OTHER, MEDICARE, SELFPAY ==
[2019-06-28 21:00] VITALS: BMI 22.6
[2019-06-28] MEDS: SCOPOLAMINE 1.5 MG PATCH TRANSDERM (22:13)
[2019-06-28] MEDS: LORAZEPAM INJ 2 MG/ML VIAL IV PUSH (22:44)
[2019-06-29] MEDS: LORAZEPAM INJ 2 MG/ML VIAL IV PUSH ×3 (01:32→08:41)
--- NOTE | 2019-06-29 08:36 | PM.IMHP ---
H&P: HPI History of Present Illness Chief complaint: RESPIRITORY FAILURE END STAGE COPD Narrative: Sola Osborne is a 79 year old female with history of end stage COPD, CAD, and HTN among other comorbidities who was recently admitted and discharged under the Hospitalist service fro treatment of COPD exacerbation. Patient was treated for COPD exacerbation with IV steroids, IV antibiotics, and other supportive therapy; she was placed on BiPAP as needed then eventually placed on High Flow NC. Late on 06/26, patient and family decided to withdraw care due to her worsened condition. They decided to [facility]; Hospitalist service to care for patient while under Hospice service. Patient is sleeping appears comfortable at this time and family agrees; family state current medication regimen is sufficient. Due to patient condition, unable to obtain HPI/ROS. Family have no requests at the moment. Review of Systems Review of Systems: ROS unobtainable: unobtainable due to mental condition PMFSH Past Medical History Medical History Anemia Distant history of anemia on iron supplements Anxiety Arthritis Asthma Back pain CAD (coronary artery disease) Angioplasty in the early , drug eluting stent to the proximal 1st obtuse marginal branch of the circumflex September 2014 COPD (chronic obstructive pulmonary disease) PFTs August of 2018 demonstrated moderate obstructive airway disease with severe small airway disease with no bronchodilator response and significant air trapping Depression Diastolic dysfunction Noted on cardiac catheterization from September 2014, with echocardiogram from September 2014 demonstrating moderate LVH with sigmoid hypertrophy of the septum, increased left heart filling pressures, EF of 70% with anterior lateral segment being hypokinetic Eczema Fluid overload, unspecified GERD (gastroesophageal reflux disease) With symptoms of dysphagia resulting in an EGD by Dr. Byrd September 2018 with gastric polypectomy Heart attack Non STEMI September 2014 with stent placed in the obvious marginal branch of the circumflex Hemorrhoids Pneumonia UTI (urinary tract infection) Surgical History Surgical History H/O hemorrhoidectomy History of bilateral cataract extraction Hx of cardiac catheterization with stent placement Hx of cataract surgery Hx of left knee surgery Hx of tubal ligation Tubal ligation status Family History Family History Sibling Diabetes mellitus Coronary artery disease One brother of complications of diabetes and had a history of heart disease. Her younger brother also had a history of a CABG. Father Lung cancer Mother Coronary artery disease She had an CA in her 70s. Son Quadriplegia, acute traumatic 1 son who is quadriplegic due to trauma. She also has 3 other children. Social History Social History Social History: Primary care physician: Ha CASTANEDA Code status: DNI per patient request Smoking status: Never smoker Second hand tobacco smoke exposure: Yes Alcohol intake: never Substance use: never Substance use type: does not use Additional living arrangements comments: Patient resides at [facility]. She is , and has 4 children. One of her children's quadriplegic due to a car accident. She would like her daughter Coleen Cormier and her other daughter Melida Gusman to be her surrogate decision makers. 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 Gender identity (if verbalized by the patient): Female Spiritual care concerns: No Agree to blood products: Yes Meds Home Medications and Allergies Home Medications Medication Instructi
--- NOTE | 2019-06-29 09:54 | PM.DDS ---
Discharge Sum: Prov Provider Primary care physician: Ha Alonso PA-C Admitting provider: Kristin Baird DO Discharge Sum: Diag PCOD Respiratory Failure Contributing Factors (1) End of life care: (2) COPD exacerbation: Discharge Sum: Summary Date and Time Date of admission: 06/28/19 21:05 Date of : 06/29/19 Time of : 09:30 Summary Details: Sola Osborne is a 79 year old female with history of end stage COPD, CAD, and HTN among other comorbidities who was recently admitted and discharged under the Hospitalist service for treatment of COPD exacerbation. Patient was treated for COPD exacerbation with IV steroids, IV antibiotics, and other supportive therapy; she was placed on BiPAP as needed then eventually placed on High Flow NC. Late on 06/26, patient and family decided to withdraw care due to her worsened condition. They decided to choose [facility]; Hospitalist service to care for patient while under Hospice service. Patient appeared comfortable at time of H&P and family had needs addressed; family state current medication regimen is sufficient. Due to patient condition, unable to obtain HPI/ROS. Family have no requests at the moment of the initial H&P. Provider was notified at 9:37 that patient had passed at 9:30 am on 06/28/2019. Additional Data Confirmation of as documented by pronouncing clinician: no pulse, no respirations, no heart sounds and pupils fixed and dilated Family: at bedside Additional persons at bedside: other Attending/PCP notified?: Yes Attending physician: Abimael Stringer PA-C, Dr. Stewart Was code activated?: No Autopsy requested?: No hearing examiner notified?: Yes Organ bank notified?: Yes Advance directives: Yes Hospice patient?: Yes
== END 2019-06-29 13:04 | disposition expired | DRG 192 ==
PROVIDERS: Admitting Provider Internal Medicine; PCP Physician Assistant; Visit Provider Physician Assistant
DX: J44.1 Chronic obstructive pulmonary disease with (acute) exacerbation (principal); I25.10 Atherosclerotic heart disease of native coronary artery without angina pectoris; Z51.5 Encounter for palliative care; I10 Essential (primary) hypertension; D64.9 Anemia, unspecified; F41.8 Other specified anxiety disorders; M19.90 Unspecified osteoarthritis, unspecified site; L30.9 Dermatitis, unspecified; K21.9 Gastro-esophageal reflux disease without esophagitis; I25.2 Old myocardial infarction; Z95.5 Presence of coronary angioplasty implant and graft; Z98.42 Cataract extraction status, left eye; Z98.41 Cataract extraction status, right eye
CPT/HCPCS: A9270; J2060; J2270